=== PATIENT | male | born 1965 | race Caucasian/White ===

== ENCOUNTER 2018-09-28 17:27 | Emergency (ER) | payer OTHER ==
[2018-09-28 17:39] VITALS: TEMP 97.7
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
[2018-09-28] MEDS ORDERED: ONDANSETRON 4 MG/2 ML VIAL IVP STA (18:10)
[2018-09-28] MEDS ORDERED: SODIUM CHLORIDE 0.9% 1,000 ML IV STA (18:10)
[2018-09-28] MEDS ORDERED: LORazepam 2 MG/ML INJ IV STA (18:10)
[2018-09-28 18:22] LABS: Basophils # (A) 0.1 k/uL (0-0.2); Basophils % (A) 1 %; Eosinophils # (A) 0.2 k/uL (0-0.7); Eosinophils % (A) 2 %; HCT 49.3 % (39.0-53.0); Lymphocytes # (A) 3.8 k/uL (1.0-4.8); Lymphocytes % (A) 40 %; MCH 32.6 pg (25.0-35.0); MCHC 34.5 g/dL (31.0-37.0); MCV 94.4 fL (80.0-100.0); Mean Platelet Volume 7.8; Monocytes # (A) 0.5 k/uL (0-1.0); Monocytes % (A) 5 %; Neutrophils # (A) 4.8 k/uL (1.3-7.7); Neutrophils % (A) 50 %; Platelet Count 169 k/uL (150-450); RBC 5.23 m/uL (4.30-5.90); RDW 15.7 % (11.5-15.5); WBC 9.6 k/uL (3.8-10.6)
[2018-09-28 18:30] LABS: INR 0.9 (<1.2); Partial Thromboplastin Time 26.4 sec (22.0-30.0); Prothrombin Time 9.8 sec (9.0-12.0)
[2018-09-28 18:31] LABS: ALT 79 U/L (21-72); AST 116 U/L (17-59); African American GFR (CKD) >90 (>60 ml/min/1.73 sqM); Albumin 4.5 g/dL (3.5-5.0); Alkaline Phosphatase 109 U/L (38-126); Anion Gap 11 mmol/L; Blood Urea Nitrogen 7 mg/dL (9-20); Calcium 9.8 mg/dL (8.4-10.2); Carbon Dioxide 18 mmol/L (22-30); Chloride 107 mmol/L (98-107); Glucose 94 mg/dL (74-99); Magnesium 2.2 mg/dL (1.6-2.3); Phosphorus 2.2 mg/dL (2.5-4.5); Sodium 136 mmol/L (137-145); Total Bilirubin 1.3 mg/dL (0.2-1.3); Total Protein 7.4 g/dL (6.3-8.2)
[2018-09-28 19:14] VITALS: BP 172/104; PULSE 75; RESP 16
--- NOTE | 2018-09-28 19:18 | CT ---
EXAMINATION TYPE: CT brain wo con DATE OF EXAM: 09/28/2018 COMPARISON: None HISTORY: Weakness, SOB CT DLP: 1125.4 mGycm Automated exposure control for dose reduction was used. FINDINGS: There is some mild cerebral cortical atrophy. There is no mass effect nor midline shift. There is no sign of intracranial hemorrhage. Calvarium is intact. IMPRESSION: MILD ATROPHY. NO ACUTE INTRACRANIAL ABNORMALITY.
--- NOTE | 2018-09-28 19:21 | CT ---
EXAMINATION TYPE: CT angio chest DATE OF EXAM: 09/28/2018 6:56 PM COMPARISON: None HISTORY: Weakness, SOB CT DLP: 536.9 mGycm Automated exposure control for dose reduction was used. CONTRAST: CTA scan of the thorax is performed with IV Contrast, patient injected with 100 mL of Isovue 370, pul monary embolism protocol. . There are 3-D post processed images. FINDINGS: There is mild emphysema at the right lung apex. There is no significant mediastinal adenopathy. There are paratracheal lymph nodes that measure up to 1 cm. There is coronary artery calcification. Heart size is normal. There is no pericardial effusion. There is no pleural effusion. There is minimal atel ectasis posterior lung bases. There is no evidence of thoracic aortic aneurysm or dissection. There is normal contrast opacificatio n of the pulmonary arteries. There are no filling defects. There is some spurring in the thoracic spi ne. I see no bony destructive process. IMPRESSION: NO EVIDENCE OF PULMONARY EMBOLISM.
== END 2018-09-28 20:12 | disposition home or self-care (01) ==
LOC: EC 17:27
DX: R20.2 Paresthesia of skin (principal); R20.0 Anesthesia of skin; K21.9 Gastro-esophageal reflux disease without esophagitis; M19.90 Unspecified osteoarthritis, unspecified site; F17.200 Nicotine dependence, unspecified, uncomplicated; Z79.899 Other long term (current) drug therapy
CPT/HCPCS: 36415; 93005; 80053; 83735; 84100; 84484; 85025; 85610; 85730; 70450; 71275; 99285; 96374; 96375; 96361; J2060; J2405; Q9967

== ENCOUNTER → 2018-10-29 | Outpatient (CLI) | payer OTHER ==
--- NOTE | 2018-10-30 08:36 | US ---
EXAMINATION TYPE: US carotid duplex BILAT DATE OF EXAM: 10/29/2018 COMPARISON: NONE CLINICAL HISTORY: G45.9 TIA. Patient stated had left facial numbness and left foot numbness; dizzines s with positional changes, smoker 1ppd x 20 years EXAM MEASUREMENTS: RIGHT: Peak Systolic Velocity (PSV) cm/sec ----- Right CCA: 80.3 ----- Right ICA: 95.3 ----- Right ECA: 82.4 ICA/CCA ratio: 1.2 RIGHT: End Diastole cm/sec ----- Right CCA: 21.0 ----- Right ICA: 38.3 ----- Right ECA: 18.9 LEFT: Peak Systolic Velocity (PSV) cm/sec ----- Left CCA: 74.6 ----- Left ICA: 141.6 mid at severe turn in ICA, and stays elevated into distal left ICA at continue d tortuosity ----- Left ECA: 89.2 ICA/CCA ratio: 1.9 LEFT: End Diastole cm/sec ----- Left CCA: 21.5 ----- Left ICA: 43.0 ----- Left ECA: 14.7 VERTEBRALS (direction of flow): Right Vertebral: Antegrade Left Vertebral: Antegrade Rhythm: Normal Mild intimal wall thickening is noted in bilateral ICA with elevated PSV in tortuous mid and distal l eft ICA. IMPRESSION: 1. Although technique is suboptimal given the tortuosity of the left internal carotid artery a stenos is of 50-69% is seen as there is grayscale atheromatous plaquing and continued more distal ICA elevat ed velocity with nearly abnormal internal carotid artery to common carotid artery ratio. CTA neck cou ld further assess this finding. 2. No hemodynamically significant stenosis within the right visualized carotid arterial system. Criteria for Assigning % of Stenosis / Diameter reduction (Estimation based on the indirect measurements of the internal carotid artery velocities (ICA PSV). 1. Normal (no stenosis)=ICA PSV < 125 cm/s: ratio < 2.0: ICA EDV<40 cm/s. 2. Less than 50% stenosis=ICA PSV < 125 cm/s: ratio < 2.0: ICA EDV<40 cm/s. 3. 50 to 69% stenosis=ICA PSV of 125 to 230 cm/s: ration 2.0 ? 4.0: ICA EDV 40-100 cm/s. 4. Greater than 70% stenosis to near occlusion= ICA PSV > 230 cm/s: ratio > 4.0: ICA EDV > 100 cm/s. 5. Near occlusion= ICA PSV velocities may be low or undetectable: variable ratio and ICA EDV. 6. Total occlusion=unable to detect flow.
== END | disposition home or self-care (01) ==
LOC: RADUSWWP 16:54
PROVIDERS: ATTEND Family Medicine
DX: I65.22 Occlusion and stenosis of left carotid artery (principal)
CPT/HCPCS: 93880

== ENCOUNTER → 2019-05-21 | Outpatient (CLI) | payer OTHER ==
--- NOTE | 2019-05-21 17:12 | CT ---
EXAMINATION TYPE: CT angio neck DATE OF EXAM: 05/21/2019 HISTORY: c/o dizziness, dizziness and giddiness. COMPARISON: 02/04/2013 CT DLP: 321.5 mGycm. Automated Exposure Control for Dose Reduction was Utilized. TECHNIQUE: CTA scan of the neck is performed with IV Contrast, patient injected with 100 mL of Isovu e 370, axial images are obtained, coronal and sagittal reformatted images are reviewed. Three-D recon structed images are created on an independent workstation and reviewed. Source images are reviewed. FINDINGS: Carotid/Vascular Structures: There is a three-vessel arch. Vertebral arteries are codominant. Common carotid arteries bifurcate into internal and external carotid arteries. Internal carotid arter ies have mild tortuosity. No significant flow-limiting stenosis is evident. Internal carotid arteries are patent to the level of the skull base. Other: Parotid glands and submandibular glands appear normal. No suspicious adenopathy is evident. Th yroid as visualized is normal. IMPRESSION: 1. No flow-limiting stenosis bilateral carotid bifurcations.
== END | disposition home or self-care (01) ==
LOC: RADCTMAIN 14:51
PROVIDERS: ATTEND Family Medicine
DX: R42 Dizziness and giddiness (principal)
CPT/HCPCS: 70498; Q9967

== ENCOUNTER → 2020-04-23 | Outpatient (CLI) | payer OTHER ==
--- NOTE | 2020-04-23 16:03 | CT ---
EXAMINATION TYPE: CT lumbar spine wo con DATE OF EXAM: 04/23/2020 3:32 PM COMPARISON: Outside Lumbar spine x-ray 15 days ago HISTORY: low back pain CT DLP: 908.20 mGycm Automated exposure control for dose reduction was used. Unenhanced CT of the lumbar spine was performed. Bone and soft tissue window settings are submitted as well as coronal and sagittal reconstructions. There are 5 lumbar-type vertebra redemonstrated. Alignment is satisfactory. Mild to moderate disc spa ce narrowing greatest posteriorly L5-S1 level. Vertebral body heights and disc space heights otherwis e maintained. No large posterior disc herniation transvaginal images. Mild to moderate multilevel ant erior lateral spurring. Axial images at T12-L1, L1-L2, L2-L3, and L3-L4 levels appear within normal limits. Axial images at the L4-L5 level show mild facet degenerative changes bilaterally. There is mild broad disc bulge. There is mild effacement of the anterior thecal sac. There is mild to moderate left side d neural foraminal narrowing. Right sided neural foramen is patent. Axial images at L5-S1 level show mild facet degenerative changes bilaterally. There is broad-based po sterior disc protrusion. Spinal canal is preserved. There is moderate bilateral anterior inferior thais ral foraminal narrowing. Some encroachment on the right L5 nerve difficult to exclude sagittal image 23 on axial image 63. Few scattered diverticula in the sigmoid colon. Mild to moderate calcified plaque of the aorta extend s into branch vessels. Left hip metallic prosthesis noted on localizer. IMPRESSION: [id number] degenerative changes in the lower lumbar spine as detailed above.
== END | disposition home or self-care (01) ==
LOC: RADCTMAIN 15:05
PROVIDERS: ATTEND Orthopaedic Surgery
DX: M48.061 Spinal stenosis, lumbar region without neurogenic claudication (principal); M47.816 Spondylosis without myelopathy or radiculopathy, lumbar region
CPT/HCPCS: 72131

== ENCOUNTER → 2022-02-17 | Outpatient (CLI) | payer OTHER ==
--- NOTE | 2022-02-18 03:49 | MR ---
EXAMINATION TYPE: MR lumbar spine wo con DATE OF EXAM: 02/17/2022 COMPARISON: None HISTORY: Low back pain that radiates down left leg. Multiplanar multiecho imaging of the lumbar spine with no contrast. The vertebrae are of normal alignment. There is slight narrowing of the L5-S1 disc space. There is sm all posterior disc bulging and herniation at L5-S1. There is developmentally adequate spinal canal. N o spinal stenosis. No compression fracture. No lumbar paraspinal mass. The lumbar nerve roots appear normal. Sacroiliac joints are intact. The neural foramina are fairly well-maintained. No evidence of focal bone destruction. IMPRESSION: Mild degenerative disc changes at L5-S1 with posterior disc bulging. No spinal stenosis. No fracture.
== END | disposition home or self-care (01) ==
LOC: RADMRIMAIN 19:39
PROVIDERS: ATTEND Nurse Practitioner Family
DX: M51.17 Intervertebral disc disorders with radiculopathy, lumbosacral region (principal)
CPT/HCPCS: 72148

== ENCOUNTER → 2022-03-30 | Outpatient (CLI) | payer OTHER ==
--- NOTE | 2022-03-30 15:31 | P.PAINPG ---
PQRS Measure Charge Sheet Comment: HISTORY OF PRESENT ILLNESS: 56 yr old male as a referral from Dr Steve presents today w severe and chronic LBP secondary to disc bulges, DDD, spondylosis, facet arthropathy without myelopathy for evaluation. Pt states pain level is at 8 /10 in intensity, constant, localized in the lower lumbar spine, burning/ sore in character w shooting pain towards the BLEs and feet. Pain is provoked by standing/ walking for periods of 20 min or more. Pain is alleviated by medications (Eden, Neurontin, Naproxen), repositioning and rest. Pt hasn't stated PT yet. PMH: Past Medical History: HTN, Gout, Diverticulitis, MDD PSH: L Total Hip Arthroplasty SH: Daily tobacco use, No ETOH abuse, No illicit drug use. FH: Non contributory All: NKDA Meds: See list REVIEW OF ORGAN SYSTEMS: CONSTITUTIONAL: No fevers or chills. No recent weight loss. NEUROLOGICAL: + numbness and tingling along the distal extremities. No seizure disorders or headaches. MUSCULOSKELETAL: + pain PSYCHIATRIC: Denies current depression or suicidal th oughts. Physical Examinations : Constitutional : Cooperative , not in acute distress . Neurologic : Cranial nerve II to XII intact. No focal neurological deficits. Psychiatric : alert & oriented x 3. Matching mood & appropriate affect. Judgment & insight intact. Musculoskeletal : Cervical Spine Motor strength in the deltoid and biceps: Normal right side. Normal Left side Motor strength biceps and the wrist extensors: Normal right side . Normal left side Motor strength in the triceps muscle: Normal right side. Normal left side Deep tendon reflexes: Normal at the biceps. Normal at Brachioradialis. Normal at triceps Vertebral body tenderness to deep palpation over Cervical facet loading test: positive bilaterally Spurling test: positive bilaterally Neck distraction test: positive bilaterally Jennifer sign: positive bilaterally Lumbar spine Motor strength lower extremities ,thigh and legs 5/5 Right side , 5/5 Left side Deep tendon reflexes : Normal Knee Jerk. Normal Ankle Jerk Vertebral body tenderness over L5 Lumbar facet Loading Test: positive Right / positive Left Range of motion of the lumbar spine Flexion 30 degrees, extension 10 degrees Straight Leg Raise test: Left/ Right positive at degree Preston test: positive right / positive left. Severe tenderness over the Sacroiliac joint on the Right / Left sides Gaenslen test: positive bilaterally Seated flexion test: positive bilaterally. Sacral spine : Severe tenderness over the Sacroiliac joint: right side / left side Range of motion: Flexion of the lumbar spine <60 degrees Range of motion: Extension of the lumbar spine <20 degrees Gaenslen's Test positive Shon's Test positive Preston test: positive right side / left side Thigh Thrust Test Sacral Thrust Test Imaging: MRI without contrast of the lumbar spine from 02/17/22 reviewed Assessment/ Plan : Lumbar DDD Recommendation of CHRISTIANO L5-S1. May need a series of injections, up to 3 within a 6 mo period, for optimal pain relief. Risks, benefits of procedure discussed and patient verbalized understanding. Denies aspirin or anti- coagulant use or medical history of diabetes. Protocol for discontinuation/ continuation of medications dea procedure discussed. All questions answered. I have spent greater than 30 minutes on patient care today. Dr Washington was available by phone for the evaluation of this patient. The time was used to review the medical records including relevant urine studies and Prescription history (MAPs), review of the available imaging, evaluation and examination of the patient, coordination of care with the medical staff and if applicable referring physicians, as well as creation of the medical record PQRS Narrative: Smoking Status Current every day smoker Home Medications: Ambulatory Orders raNITIdine HCL [Zantac] 150 mg PO HS 10/05/14 HYDROcodone/APAP 7.5-325MG [Eden 7.5] 1 tab PO TID 09/28/18 lisinopriL [Prinivil] 10 mg PO DAILY #30 tab 09/28/18 Controlled Substance Measures - Controlled Substance Measures Is patient prescribed a controlled substance at discharge?: No
[2022-03-30 16:04] VITALS: BP 154/91; PULSE 76; RESP 18; TEMP 98.2
== END ==
LOC: PNWHC3 13:38
PROVIDERS: ATTEND Specialist
DX: M51.36 Other intervertebral disc degeneration, lumbar region (principal); F17.200 Nicotine dependence, unspecified, uncomplicated; I10 Essential (primary) hypertension
CPT/HCPCS: 99211

== ENCOUNTER 2022-08-11 18:44 | Inpatient (IN) | payer OTHER ==
[2022-08-11] MEDS ORDERED: HEPARIN SODIUM 1,000 UN/ML (10ML VL) IV ONE (18:57)
[2022-08-11] MEDS ORDERED: SODIUM CHLORIDE 0.9% 1,000 ML IV STA ×2 (18:57→19:14)
[2022-08-11] MEDS ORDERED: SODIUM CHLORIDE 0.9% 500 ML 500 ML IV STA (18:57)
[2022-08-11] MEDS ORDERED: NITROGLYCERIN SL TABS 0.4 MG TAB SUBLINGUAL STA (18:57)
[2022-08-11] MEDS ORDERED: ASPIRIN 81 MG PO STA (18:57)
[2022-08-11 19:01] LABS: Glucose,Whole Blood 115 mg/dL (70-110)
[2022-08-11] MEDS ORDERED: SODIUM CHLORIDE 0.9% 1,000 ML IV ONE (19:07)
--- NOTE | 2022-08-11 19:10 | ED ---
Chest Pain HPI - General Chief Complaint: Chest Pain Stated Complaint: chest pain Time Seen by Provider: 08/11/22 18:55 Source: patient, RN notes reviewed Mode of arrival: wheelchair Limitations: no limitations - History of Present Illness Initial Comments: 57-year-old male with a history of hypertension no history of diabetes no prior history of heart disease on his mother had heart disease started having retrosternal chest pain 7-8/10 in severity about 15-20 miles prior to arrival. He was pale and diaphoretic upon arrival at the emergency department triage area. 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 This is at the time the pain started. Slight shortness of breath with it. His states he is hypertensive by history he takes a medication starting with a L but is not taking it on a regular basis. He also is a smoker no other MD Complaint: chest pain - Related Data Home Medications Medication Instructions Recorded Confirmed raNITIdine HCL [Zantac] 150 mg PO HS 10/05/14 05/31/22 HYDROcodone/APAP 7.5-325MG [Ray 1 tab PO TID 09/28/18 05/31/22 7.5] Gabapentin 300 mg PO DAILY 05/31/22 05/31/22 lisinopriL [Prinivil] 40 mg PO DAILY 05/31/22 05/31/22 Allergies Allergy/AdvReac Type Severity Reaction Status Date / Time No Known Allergies Allergy Verified 08/11/22 18:48 Review of Systems ROS Statement: Those systems with pertinent positive or pertinent negative responses have been documented in the HPI. ROS Other: All systems not noted in ROS Statement are negative. EKG Findings - EKG Results: EKG: interpreted by ERMD (EKG interpreted by sc sinus tachycardia of 100 [place] interval 202 QRS duration 169 QT since QTC 381/438 evidence a right bundle- branch block also anteroseptal [place] with ST elevations is noted this is changed from a normal EKG dated 09/28/2018) Past Medical History Past Medical History: GERD/Reflux, Hyperlipidemia, Hypertension, Osteoarthritis (OA), Skin Disorder Additional Past Medical History / Comment(s): 04/27/15 Pt admitted to floor s/p total L hip. Other HX: keratitis, diverticulitis, gout, dizziness for years had EEG last sunday. has had falls in the past. varicose veins. dark urine lately. numbness to feet. History of Any Multi-Drug Resistant Organisms: None Reported Past Surgical History: Joint Replacement, Orthopedic Surgery Additional Past Surgical History / Comment(s): 04/27/15 Total L hip anterior approach. Other sx: RIGHT HAND/FINGERS. TUBES IN EARS Past Anesthesia/Blood Transfusion Reactions: No Reported Reaction Additional Past Anesthesia/Blood Transfusion Reaction / Comment(s): UNK FAMILY HX Past Psychological History: Anxiety, Depression Smoking Status: Current every day smoker Past Alcohol Use History: None Reported Past Drug Use History: None Reported - Past Family History Mother Family Medical History: Coronary Artery Disease (CAD) Additional Family Medical History / Comment(s): HEART PROBLEMS , bypass surgery Father Family Medical History: Cancer Additional Family Medical History / Comment(s): LUNG CANCER Brother(s) Additional Family Medical History / Comment(s): WITH COMPLICATIONS OF BED SORES R/T POST MVA General Exam - General Exam Comments Initial Comments: This is a well-developed well-nourished awake alert oriented 4 male he does appear to be in distress Limitations: no limitations General appearance: alert, anxious, in distress Head exam: Present: atraumatic, normocephalic, normal inspection Eye exam: Present: normal appearance, PERRL, EOMI. Absent: scleral icterus, conjunctival injection, periorbital swelling ENT exam: Present: normal exam, mucous membranes moist Neck exam: Present: normal inspection, full ROM, other (No stridor JVD or bruits). Absent: tenderness, meningismus, lymphadenopathy Respiratory exam: Present: normal lung sounds bilaterally. Absent: respiratory distress, wheezes, rales, rhonchi, stridor Cardiovascular Exam: Present: normal rhythm, tachycardia, normal heart sounds. Absent: systolic murmur, diastolic murmur, rubs, gallop, clicks GI/Abdominal exam: Present: soft, normal bowel sounds. Absent: distended, tenderness, guarding, rebound, rigid, bruit, pulsatile mass Extremities exam: Present: normal inspection, full ROM, normal capillary refill. Absent: tenderness, pedal edema, joint swelling, calf tenderness Back exam: Present: normal inspection Neurological exam: Present: alert, oriented X3, CN II-XII intact Psychiatric exam: Present: normal affect, normal mood Skin exam: Present: warm, dry, intact, normal color. Absent: rash Course Vital Signs 08/11/22 08/11/22 08/11/22 18:44 19:00 19:05 Temperature 98.3 F Pulse Rate 103 H 98 96 Respiratory 24 18 22 Rate Blood Pressure 82/55 96/67 95/70 O2 Sat by Pulse 100 95 97 Oximetry 08/11/22 08/11/22 08/11/22 19:10 19:12 19:15 Temperature Pulse Rate 95 95 93 Respiratory 18 22 18 Rate Blood Pressure 83/61 77/60 80/64 O2 Sat by Pulse 100 97 98 Oximetry - Reevaluation(s) Reevaluation #1: 08/11/22 19:11 The patient was noted be hypotensive and is getting IV fluids at this time he received IV heparin and aspirin nitro was being held at this time due to the blood pressure until fluids are administered. A STEMI alert was called I did talk to Dr. Kong. The industrial laborer team is called in. Reevaluation #2: 08/11/22 20:05 The patient was not on any erectile dysfunction drugs Chest Pain MDM - MDM I did interpret the x-ray no acute processes are seen. I did discuss case with Dr. Kong from cardiology patient will be sent to the [facility] for cardiac catheterization. Did discuss this with the patient's . Patient did have evidence of hypotensive episodes he was given IV fluids as well as IV heparin and aspirin a small dose of fentanyl for pain. He is awake alert oriented. He did go to Bed #3. I did discuss case also with Dr. Wallace.Was pt. sent in by a medical professional or institution (, PA, NEWSPAPER CARRIER, urgent care, hospital, or snf...) When possible be specific @ -No Did you speak to anyone other than the patient for history (EMS, parent, family, police, friend...)? What history was obtained from this source @ -Patient's Did you review nursing and triage notes (agree or disagree)? Why? @ -I reviewed and agree with nursing and triage notes Were old charts reviewed (outside hosp., previous admission, EMS record, old EKG, old radiological studies, urgent care reports/EKG's, snf records)? Report findings @ -EKG from 2019 old charts were reviewed Differential Diagnosis (chest pain, altered mental status, abdominal pain women, abdominal pain men, vaginal bleeding, weakness, fever, dyspnea, syncope, headache, dizziness, GI bleed, back pain, seizure, CVA, palpatations, mental health, musculoskeletal)? @ -Chest pain EKG interpreted by me (3pts min.). @ -As above X-rays interpreted by me (1pt min.). @ -As above CT interpreted by me (1pt min.). @ -None done U/S interpreted by me (1pt. min.). @ -None done What testing was considered but not performed or refused? (CT, X-rays, U/S, labs)? Why? @ -None What meds were considered but not given or refused? Why? @ -None Did you discuss the management of the patient with other professionals (professionals i.e. , PA, NEWSPAPER CARRIER, lab, RT, psych nurse, foster care social worker, buffing turner and counter, teacher, chief security officer, rehabilitation caseworker)? Give summary @ -Dr. Kong and later Dr. Wallace Was smoking cessation discussed for >3mins.? @ -No Was critical care preformed (if so, how long)? @ -31 Were there social determinants of health that impacted care today? How? (Homelessness, low income, unemployed, alcoholism, drug addiction, transportation, low edu. Level, literacy, decrease access to med. care, [facility], rehab)? @ -No Was there de-escalation of care discussed even if they declined (Discuss DNR or withdrawal of care, Hospice)? DNR status @ -No What co-morbidities impacted this encounter? (DM, HTN, Smoking, COPD, CAD, Cancer, CVA, ARF, Chemo, Hep., AIDS, mental health diagnosis, sleep apnea, morbid obesity)? @ -Eye protection, smoking Was patient admitted / discharged? Hospital course, mention meds given and route, prescriptions, significant lab abnormalities, going to OR and other pertinent info. @ -The patient was admitted to the [facility] Undiagnosed new problem with uncertain prognosis? @ -ST elevation myocardial infarction Drug Therapy requiring intensive monitoring for toxicity (Heparin, Nitro, Insulin, Cardizem)? @ -[No] Were any procedures done? @ -[No] Diagnosis/symptom? @ -[Acute ST elevation myocardial infarction, hypotensive episode, chest pain] Acute, or Chronic, or Acute on Chronic? @ -[Acute] Uncomplicated (without systemic symptoms) or Complicated (systemic symptoms)? @ -[Complicated] Side effects of treatment? @ -[No] Exacerbation, Progression, or Severe Exacerbation? @ -[No] Poses a threat to life or bodily function? How? (Chest pain, [place], [place], pneumonia, PE, COPD, DKA, ARF, appy, cholecystitis, CVA, Diverticulitis, Homicidal, Suicidal, threat to staff... and all critical care pts) @ -[ST elevation myocardial infarction] Critical Care Time Critical Care Time: Yes Total Critical Care Time: 31 Disposition Clinical Impression: ST elevation myocardial infarction (STEMI), Chest pain, Hypotensive episode, Smoking Disposition: ADMITTED IP TO THIS HOSP Condition: Critical Decision Date: 08/11/22 Decision Time: 19:40
[2022-08-11 19:15] LABS: Basophils # (A) 0.1 k/uL (0-0.2); Basophils % (A) 1 %; Eosinophils # (A) 0.2 k/uL (0-0.7); Eosinophils % (A) 1 %; HCT 48.3 % (39.0-53.0); HGB 16.6 gm/dL (13.0-17.5); Lymphocytes # (A) 4.7 k/uL (1.0-4.8); Lymphocytes % (A) 28 %; MCH 31.7 pg (25.0-35.0); MCHC 34.4 g/dL (31.0-37.0); MCV 92.1 fL (80.0-100.0); Mean Platelet Volume 9.2; Monocytes # (A) 0.8 k/uL (0-1.0); Monocytes % (A) 5 %; Neutrophils # (A) 10.8 k/uL (1.3-7.7); Neutrophils % (A) 64 %; Platelet Count 244 k/uL (150-450); RBC 5.24 m/uL (4.30-5.90); RDW 12.8 % (11.5-15.5); WBC 16.8 k/uL (3.8-10.6)
[2022-08-11] MEDS ORDERED: fentaNYL (PF) 50 MCG/ML 2 ML AMP IV STA (19:16)
[2022-08-11] MEDS ORDERED: fentaNYL (PF) 50 MCG/ML 2 ML AMP IVP ONE (19:16)
[2022-08-11] MEDS ORDERED: VERAPAMIL 2.5 MG/ML 2 ML AMP ONE (19:22)
[2022-08-11] MEDS ORDERED: fentaNYL (PF) 50 MCG/ML 2 ML AMP ONE (19:22)
[2022-08-11] MEDS ORDERED: NALOXONE 0.4 MG/ML 1 ML VIAL IV PRN (19:28)
[2022-08-11 19:29] LABS: INR 0.9 (<1.2); Partial Thromboplastin Time 24.9 sec (22.0-30.0); Prothrombin Time 9.9 sec (9.0-12.0)
[2022-08-11] MEDS ORDERED: LIDOCAINE 1% INJ 10MG/ML (20 ML MDV) ONE (19:30)
[2022-08-11 19:32] LABS: Albumin 4.3 g/dL (3.5-5.0); Calcium 9.6 mg/dL (8.4-10.2); Total Protein 7.1 g/dL (6.3-8.2)
[2022-08-11 19:33] LABS: Magnesium 1.9 mg/dL (1.6-2.3)
[2022-08-11] MEDS ORDERED: LIDOCAINE 1% INJ 10MG/ML (5 ML VIAL-PF) SQ ONE (19:33)
[2022-08-11] MEDS ORDERED: PHENYLEPHRINE-0.9% NACL SYG 1,000 MCG/10 ML SYRINGE IV ONE (19:35)
[2022-08-11] MEDS ORDERED: PRASUGREL 10 MG TAB ONE (19:40)
[2022-08-11] MEDS ORDERED: HEPARIN SODIUM 1,000 UN/ML (10ML VL) ONE (19:40)
[2022-08-11] MEDS ORDERED: HEPARIN SODIUM,PORCINE 5,000 UNIT/ML 1 ML VIAL IV ONE (19:41)
[2022-08-11] MEDS ORDERED: PRASUGREL 10 MG TAB PO ONE (19:41)
[2022-08-11] MEDS ORDERED: NOREPINEPHRINE 4 MG in SODIUM CHLORIDE 0.9% 250 ML IV ONE (19:42)
[2022-08-11] MEDS ORDERED: EPINEPHrine 10 ML SYRINGE (0.1 MG/ML) IV ONE ×3 (19:52→20:34)
[2022-08-11] MEDS ORDERED: LIDOCAINE 2% SYG (PF) 100 MG/5 ML IV ONE (19:55)
--- NOTE | 2022-08-11 19:55 | XR ---
EXAMINATION TYPE: XR chest 1V DATE OF EXAM: 08/11/2022 7:07 PM COMPARISON: CT 09/28/2018 TECHNIQUE: XR chest 1V Frontal view of the chest. CLINICAL INDICATION:Male, 57 years old with history of Chest Pain; FINDINGS: Lungs/Pleura: Asymmetric right upper lung haziness to the lungs . Findings could be secondary to summ ation artifact. There is no evidence of pleural effusion, focal consolidation, or pneumothorax. Pulmonary vascularity: Unremarkable. Heart/mediastinum: Cardiomediastinal silhouette is unremarkable. Musculoskeletal: No acute osseous pathology. IMPRESSION: Right upper lung asymmetric haziness compared to left. Could be secondary summation of overlapping so ft tissues.
[2022-08-11] MEDS ORDERED: AMIODARONE 50 MG/ML 3 ML VIAL IV ONE ×2 (19:57→20:16)
[2022-08-11] MEDS ORDERED: METOPROLOL TARTRATE 5 MG/5 ML VIAL IVP ONE ×2 (20:12→20:15)
[2022-08-11] MEDS ORDERED: SODIUM BICARB 8.4% 50 ML VIAL (1 MEQ/ML) IV ONE (20:22)
--- NOTE | 2022-08-11 20:32 | P.PN ---
Progress Note - Text Progress Note Date: 08/11/22 Responded to code Blue in the Poultry [employer]per#3 , patient on the procedure table he had multiple shocks done by cardiology team, unresponsive, patient on 100% oxygen through Ampu bag , intubated mac #3 blade ,one attempt, oral ET tube size 8 , secured at 22 cm , positive color change( co2 indicator ) further management as per cardiology team and ICU team.
[2022-08-11] MEDS: AMIODARONE 360 MG in DEXTROSE 5% IN WATER 200 ML IV ONE ×2 (20:45)
[2022-08-11] MEDS ORDERED: RX INFO: IV CONTRAST WAS GIVEN 1 EACH MISC MISCELLANE PRN (21:07)
[2022-08-11] MEDS ORDERED: NITROGLYCERIN SL TABS 0.4 MG TAB SUBLINGUAL PRN (21:07)
[2022-08-11] MEDS ORDERED: ZOLPIDEM 5 MG TAB PO PRN (21:07)
[2022-08-11] MEDS ORDERED: MAG HYDROX/AL HYDROX/SIMETH 30 ML CUP PO PRN (21:07)
[2022-08-11] MEDS ORDERED: ATROPINE SULFATE 0.1 MG/ML 10ML SYRINGE IV PRN (21:07)
[2022-08-11] MEDS ORDERED: HEPARIN SODIUM 1,000 UN/ML (10ML VL) IV PRN (21:10)
[2022-08-11] MEDS ORDERED: SODIUM BICARB (1 MEQ/ML) 12.5 ML in DEXTROSE 5% IN WATER 500 ML IV SCH ×2 (21:15)
[2022-08-11] MEDS ORDERED: HEPARIN SOD,PORK IN 0.45% NACL 25,000 UNIT in 0.45% NACL 1 250ML.BAG IV SCH (21:15)
[2022-08-11 21:22] LABS: Glucose,Whole Blood 359 mg/dL (70-110)
--- NOTE | 2022-08-11 21:22 | P.CARDCATH ---
Date of Procedure: 08/11/22 Description of Procedure: PERCUTANEOUS TRANSLUMINAL CORONARY ANGIOPLASTY CLINICAL INFORMATION: The patient is a 57-year-old male who presented with an acute interval myocardial infarction, underwent cardiac catheterization by Dr. Kong and was found to have subtotally occluded proximal LAD. The patient was hypotensive on presentation. Recommendations were made regarding angioplasty and stenting. The procedure as well as the risks and the complications were discussed with the patient who was in full understanding and agreement. PROCEDURE: A 6 Congolese EBU 3.75 guiding catheter was introduced into the system. After cannulating the left main, a 0.014 BMW J-wire was advanced across the lesion and positioned distally. Following that a 2.5 x 12 mm Treck balloon was advanced and inflated at 8 atmosphere. Following that a 4.0 x 23 mm Xience yael point stent was deployed. It was dilated at 16. Following that the patient had recurrent episode of ventricular tachycardia and ventricular fibrillation requiring CPR and multiple cardioversion. The patient was intubated electively by anesthesia. After removing the balloon 3.25 x 23 mm Xience yael point was deployed distal to the first one and postdilated to 16 shira. After the last inflation, after appropriate wait, the balloon and the guidewire were withdrawn back into the guiding catheter. Images were obtained and repeated. Those images reveal stable successful stenting. At that point, the guiding catheter, the balloon, and guidewire were removed. A 6-Congolese right Phyllis catheter was introduced and images of the right coronary artery was performed. Subsequently a 6-Congolese pigtail catheter was introduced in the left ventricle and pressures were calculated. The patient continued to be hypotensive and at that time the 6-Congolese sheath in the right femoral artery was exchanged to a 14-Congolese sheath. The 6-Congolese pigtail catheter was reintroduced in the left ventricle and changed to the Impella wire. After removing the pigtail the Impella was introduced under fluoroscopy and positioned with good hemodynamics number. It was sutured in place. Subsequently a 4-Congolese sheath was introduced in the left femoral vein using modified Seldinger technique. It was sutured in place. Of note, the patient received 4000 units of heparin as well as Effient. His ACT was followed. At the end of the procedure he had no further ventricular tachycardia. Hemodynamically more stable. RESULTS: Successful stenting of the proximal LAD with reduction of stenosis from 99% with large amount of thrombus to less than 5% Successful placement of Impella catheter for hemodynamic support Chronically occluded mid RCA Elevated LVEDP Placement of a venous sheath in the right femoral vein RECOMMENDATIONS: The patient will be continued on aspirin and Effient for 1 year with no interruption. The prognosis is guarded. The findings and recommendations were discussed with the family, they are in full understanding and agreement. He was transferred to the ICU. Depending on his progress further recommendations will be made. Duration of sedation: 75 minutes
[2022-08-11] MEDS: NOREPINEPHRINE 4 MG in SODIUM CHLORIDE 0.9% 250 ML IV SCH (21:30)
[2022-08-11] MEDS ORDERED: CISATRACURIUM 2 MG/ML 5 ML VIAL IV ONE (21:32)
[2022-08-11 21:38] LABS: Allen Test Performed? no
[2022-08-11 21:39] LABS: ABG Base Excess -19.9 mmol/L; ABG HCO3 12 mmol/L (21-25); ABG PCO2 48 mmHg (35-45); ABG PH 6.99 (7.35-7.45); ABG PO2 85 mmHg (83-108); ABG TCO2 13 mmol/L (19-24)
[2022-08-11] MEDS ORDERED: IV FLUID CONTINUATION 1,000 ML IV ONE (21:44)
[2022-08-11] MEDS ORDERED: IOPAMIDOL-370 100ML BTL INJ ONE ×2 (21:45→21:46)
[2022-08-11 21:53] LABS: ABG Base Excess -12.1 mmol/L; ABG HCO3 17 mmol/L (21-25); ABG PCO2 52 mmHg (35-45); ABG PO2 157 mmHg (83-108); ABG TCO2 19 mmol/L (19-24); Allen Test Performed? Yes
[2022-08-11 21:55] LABS: ABG PH 7.13 (7.35-7.45)
[2022-08-11] MEDS ORDERED: SODIUM BICARB 8.4% 50 ML SYR (1 MEQ/ML) IV STA (22:26)
--- NOTE | 2022-08-11 22:27 | XR ---
EXAMINATION TYPE: XR chest 1V portable DATE OF EXAM: 08/11/2022 10:08 PM COMPARISON: Chest radiographs from 08/11/2022 TECHNIQUE: XR chest 1V portable Frontal view of the chest. CLINICAL INDICATION:Male, 57 years old with history of Tube placement; FINDINGS: Lungs/Pleura: There is no evidence of pleural effusion, focal consolidation, or pneumothorax. Pulmonary vascularity: Pulmonary vascular congestion. Heart/mediastinum: Cardiomediastinal silhouette is unremarkable. Musculoskeletal: No acute osseous pathology. Other findings: None Lines/Tubes: Endotracheal tube with distal tip 3.9 cm above the anjana. Left ventricular assist device in place in appropriate position. IMPRESSION: 1. Left stent is in appropriate position. 2. Endotracheal tube in appropriate position. 3. Pulmonary vascular congestion.
[2022-08-11 22:46] LABS: HCT 44.6 % (39.0-53.0); HGB 14.9 gm/dL (13.0-17.5); MCH 31.9 pg (25.0-35.0); MCHC 33.4 g/dL (31.0-37.0); MCV 95.6 fL (80.0-100.0); Mean Platelet Volume 8.9; Platelet Count 242 k/uL (150-450); RBC 4.66 m/uL (4.30-5.90); RDW 13.1 % (11.5-15.5); WBC 30.6 k/uL (3.8-10.6)
[2022-08-11] MEDS: SODIUM CHLORIDE 0.9% 1,000 ML in EMPTY BAG 1 BAG IV SCH (22:57)
[2022-08-11] MEDS: CHLORHEXIDINE GLUCONATE 15 ML CUP MUCOUS MEM SCH (23:18)
[2022-08-11] MEDS: DEXTROSE 5% IN WATER 1,000 ML with SODIUM BICARB (1 MEQ/ML) 150 ML IV SCH (23:19)
[2022-08-11 23:21] LABS: Partial Thromboplastin Time 103.9 sec (22.0-30.0); Prothrombin Time 10.9 sec (9.0-12.0)
[2022-08-11 23:28] LABS: Calcium 7.6 mg/dL (8.4-10.2)
[2022-08-11 23:43] LABS: Amorphous Sediment,Urine Occasional /hpf; Appearance,Urine Cloudy (Clear); Bacteria,Urine Rare /hpf; Bilirubin,Urine Negative (Negative); Blood,Urine Large (Negative); Color,Urine Dark Red; Glucose,Urine (UA) 3+ (Negative); Granular Casts,Urine 3 /lpf (0); Hyaline Casts,Urine 8 /lpf (0-2); Ketones,Urine 1+ (Negative); Leukocyte Esterase,Urine Small (Negative); Mucus,Urine Rare /hpf; Nitrite,Urine Negative (Negative); PH, Urine 5.5 (5.0-8.0); Protein,Urine 2+ (Negative); RBC,Urine 1 /hpf (0-5); Specific Gravity,Urine 1.036 (1.001-1.035); Squamous Epithelial Cell,Urine 1 /hpf (0-4); Urobilinogen,Urine <2.0 mg/dL (<2.0); WBC,Urine 1 /hpf (0-5)
[2022-08-11 23:45] LABS: Potassium 3.8 mmol/L (3.5-5.1)
[2022-08-11 23:55] LABS: Band Neutrophils % 11 %; Lymphocytes # (M) 2.75 k/uL (1.0-4.8); Metamyelocytes # (M) 0.31 k/uL (0); Metamyelocytes % 1 %; Monocytes # (M) 0.92 k/uL (0-1.0); Neutrophils % (M) 77 %; Nucleated Red Blood Cells 0 /100 WBC (0-0); Total Cells Counted 200
[2022-08-11 23:56] LABS: RBC Morphology Normal
[2022-08-12] MEDS ORDERED: Potassium Replacement Protocol 1 EACH MISC MISCELLANE PRN (00:24)
[2022-08-12] MEDS: POTASSIUM CHLORIDE 10 MEQ in WATER FOR INJECTION 1 100ML.BAG IVPB SCH ×2 (00:40→01:45)
[2022-08-12] MEDS ORDERED: MIDAZOLAM HCL 50 MG in SODIUM CHLORIDE 0.9% 40 ML IV SCH (01:15)
[2022-08-12] MEDS: NOREPINEPHRINE 4 MG in SODIUM CHLORIDE 0.9% 250 ML IV SCH ×3 (01:17→17:27)
--- NOTE | 2022-08-12 01:47 | CONS ---
CONSULTATION CHIEF COMPLAINT: Chest pain. HISTORY OF PRESENT ILLNESS: This is a 57-year-old gentleman with history of hypertension who presented to the hospital with sudden onset chest pain that started an hour prior to coming into hospital. It was 10/10 intensity chest pain with radiation to both arms. EKG showed acute anterior wall myocardial infarction and STEMI was activated and I received a phone call from the emergency room physician. I spoke to Dr. Shawn Orr in the ER and STEMI was already activated and I met the patient in the senior cytogenetics laboratory director. He is hypotensive and seemed to be in pain but not in respiratory distress. His blood pressures are in the 60s to 70s systolic. The patient seems to be in cardiogenic shock related to the anterior wall myocardial infarction. PAST MEDICAL HISTORY: Significant for hypertension. MEDICATIONS: Include lisinopril. FAMILY HISTORY: Negative for premature coronary artery disease. SOCIAL HISTORY: Significant for smoking. There is no history of EtOH abuse or drug abuse. REVIEW OF SYSTEMS: I am unable to obtain from the patient who is critically ill. PHYSICAL EXAMINATION: VITAL SIGNS: Heart rate is around 70 beats per minute. Blood pressure is 68/50, respiratory rate is 18. CHEST: Reveals diminished air entry at the bases. I do not hear any crackles or rhonchi. HEART: Reveals first and second heart sounds. No gallop. No murmur. ABDOMEN: Soft. EXTREMITIES: Exam of extremities did not reveal any edema. Peripheral pulses are felt. LABORATORY DATA: Labs are pending at this time. EKG shows acute anterior wall myocardial infarction. ASSESSMENT: 1. Acute anterior wall myocardial infarction. 2. Cardiogenic shock. PLAN: We will proceed with emergent cardiac catheterization. The patient has received fluid resuscitation, received IV heparin in the ER and we are going to start him on Levophed. MMODL / IJN: [id number] /
[2022-08-12] MEDS: SODIUM CHLORIDE 0.9% 1,000 ML IV SCH ×2 (01:49→17:29)
[2022-08-12 02:10] LABS: Partial Thromboplastin Time 47.4 sec (22.0-30.0)
--- NOTE | 2022-08-12 02:17 | OP ---
OPERATIVE REPORT DATE OF SERVICE : INDICATION: Acute anterior wall myocardial infarction. PROCEDURE: After obtaining informed consent, left heart catheterization and coronary angiogram were performed via the right femoral artery. The patient tolerated the procedure well. Total sedation time was 7 minutes. The right femoral artery access was obtained using Seldinger technique. Catheter and wire were floated into the ascending aorta under fluoroscopic guidance. I only obtained the left injection. Following which, the equipment service technician proceeded with angioplasty and he will obtain the right coronary artery injection and hemodynamics. The patient is hypotensive and is critically ill secondary to cardiogenic shock and we will resuscitate him with pressors, injection of the coronary angiogram. Left main coronary artery is a normal-sized vessel and is free of stenosis. It divides into left anterior descending coronary artery and circumflex coronary artery. Circumflex coronary artery and its branches are free of significant stenosis. There are collaterals to the distal right coronary artery. LAD appears totally occluded in the proximal to midportion with an area of filling defect and plaque rupture. PLAN: Dr. Taylor will proceed with angioplasty with stent placement of LAD and he will obtain right coronary angiogram and left ventricular hemodynamics. MMODL / IJN: [id number] /
[2022-08-12] MEDS: AMIODARONE 450 MG in DEXTROSE 5% IN WATER 250 ML IV SCH ×4 (03:09→17:28)
[2022-08-12] MEDS ORDERED: CISATRACURIUM 200 MG in SODIUM CHLORIDE 0.9% 180 ML IV SCH (03:45)
[2022-08-12 05:04] LABS: Basophils % (A) 0 %; Eosinophils % (A) 0 %; HCT 40.1 % (39.0-53.0); HGB 14.2 gm/dL (13.0-17.5); Lymphocytes # (A) 1.6 k/uL (1.0-4.8); Lymphocytes % (A) 8 %; MCHC 35.4 g/dL (31.0-37.0); MCV 93.2 fL (80.0-100.0); Mean Platelet Volume 8.8; Monocytes % (A) 5 %; Neutrophils # (A) 16.6 k/uL (1.3-7.7); Neutrophils % (A) 86 %; Platelet Count 212 k/uL (150-450); RDW 13.2 % (11.5-15.5); WBC 19.3 k/uL (3.8-10.6)
[2022-08-12 05:26] LABS: Potassium 5.6 mmol/L (3.5-5.1)
[2022-08-12 05:29] LABS: Partial Thromboplastin Time 39.5 sec (22.0-30.0)
--- NOTE | 2022-08-12 05:45 | XR ---
EXAMINATION TYPE: XR chest 1V portable DATE OF EXAM: 08/12/2022 CLINICAL HISTORY: Difficulty breathing progress study. LVAD placement. TECHNIQUE: Single AP portable supine view of the chest is obtained. COMPARISON: Chest x-ray from one day earlier and older studies FINDINGS: Stable endotracheal and orogastric tubes. Stable positioning of the left ventricular andrade t device. Persistent mild cardiomegaly and central vascular congestion. No pneumothorax is seen. Osseous struct ures are intact. IMPRESSION: Mild cardiomegaly and mild central vascular congestion redemonstrated. No significant amaris nge from one day earlier.
[2022-08-12 05:51] LABS: Glucose,Whole Blood 180 mg/dL (70-110)
[2022-08-12 05:52] LABS: ABG Base Excess -1.3 mmol/L; ABG HCO3 24 mmol/L (21-25); ABG Oxygen Saturation 99.6 % (94-97); ABG PCO2 45 mmHg (35-45); ABG PH 7.34 (7.35-7.45); ABG PO2 197 mmHg (83-108); ABG TCO2 26 mmol/L (19-24); Allen Test Performed? Yes
[2022-08-12] MEDS: PANTOPRAZOLE 40 MG/10 ML VIAL IV SCH (08:52)
[2022-08-12 09:04] LABS: HCT 39.5 % (39.0-53.0); HGB 13.8 gm/dL (13.0-17.5); MCH 32.5 pg (25.0-35.0); MCHC 34.8 g/dL (31.0-37.0); MCV 93.5 fL (80.0-100.0); Platelet Count 181 k/uL (150-450); RBC 4.23 m/uL (4.30-5.90); RDW 13.4 % (11.5-15.5); WBC 17.5 k/uL (3.8-10.6)
[2022-08-12] MEDS: CHLORHEXIDINE GLUCONATE 15 ML CUP MUCOUS MEM SCH ×2 (09:16→20:48)
[2022-08-12] MEDS: METOPROLOL TARTRATE 25 MG TAB PO SCH ×2 (09:16→20:48)
[2022-08-12 09:33] LABS: Partial Thromboplastin Time 46.3 sec (22.0-30.0)
[2022-08-12 09:45] LABS: Potassium 5.9 mmol/L (3.5-5.1)
[2022-08-12] MEDS ORDERED: SODIUM ZIRCONIUM CYCLOSILICATE 10 GM PACKET PO ONE ×2 (10:30→20:16)
--- NOTE | 2022-08-12 10:33 | P.PCN ---
Date of Procedure: 08/12/22 Description of Procedure: Impella catheter removal: The catheter was weaned down, the patient was stable hemodynamically. The catheter was removed, hemostasis was obtained with compression of the right groin. There was no immediate complication. The procedure was tolerated.
[2022-08-12] MEDS: PRASUGREL 10 MG TAB PO SCH (10:42)
[2022-08-12] MEDS: ASPIRIN 81 MG PO SCH (10:42)
--- NOTE | 2022-08-12 11:03 | CA ---
Transthoracic Echo Report Name: Nathaniel Rome Age: 57 Gender: M : 1965 Exam Date: 08/11/2022 23:00 Exam Location: [place] [facility] Ht (in): 68 Wt (lb): 180 Ordering Physician: Lisa Taylor MD ([id number]) Attending/Referring Phys: Literacy Specialist Slime Troy RDCS Procedure CPT: Indications: Placement of Left Ventricular Assist Device Cardiac Hx: limited study Technical Quality: Fair Contrast 1: Total Dose (mL): Contrast 2: Total Dose (mL): MEASUREMENTS (Male / Female) Normal Values 2D ECHO LV Diastolic Volume MOD 4C 72.9 cm??? LV Systolic Volume MOD 4C 63.9 cm??? LV Ejection Fraction MOD 4C 12.3 % LV Diastolic Length 4C 7.8 cm LV Systolic Length 4C 7.0 cm FINDINGS Left Ventricle Left ventricular ejection fraction is estimated at 12 %. Severely reduced global left ventricular systolic function. Catheter in LVOT Right Ventricle Mildly reduced right ventricular global systolic function. Right Atrium Left Atrium Mitral Valve Aortic Valve Tricuspid Valve Pulmonic Valve Pericardium Normal pericardium. No pericardial effusion. Aorta CONCLUSIONS Severe LV systolic dysfunction secondary to extensive myocardial infarction and LAD distribution with an ejection fraction of 15% And Impala catheter is placed in the left ventricular outflow tract catheter positions seems optimal Previewed by: Dr. Dayday Kong MD (Electronically Signed) Final Date: 12 Aug 2022 11:02
--- NOTE | 2022-08-12 11:07 | CA ---
Transthoracic Echo Report Name: Nathaniel Rome Age: 57 Gender: M : 1965 Exam Date: 08/12/2022 07:57 Exam Location: [place] [facility] Ht (in): 68 Wt (lb): 198 Ordering Physician: Lisa Taylor MD Attending/Referring Phys: Computer Forensic Examiner Slime Troy RDCS Procedure CPT: Indications: OK Cardiac Hx: Technical Quality: Fair Contrast 1: Total Dose (mL): Contrast 2: Total Dose (mL): MEASUREMENTS (Male / Female) Normal Values 2D ECHO LV Diastolic Diameter PLAX 5.2 cm 4.2 - 5.9 / 3.9 - 5.3 cm LV Systolic Diameter PLAX 4.7 cm IVS Diastolic Thickness 1.3 cm 0.6 - 1.0 / 0.6 - 0.9 cm LVPW Diastolic Thickness 1.4 cm 0.6 - 1.0 / 0.6 - 0.9 cm LV Relative Wall Thickness 0.5 RV Internal Dim ED PLAX 4.0 cm Aortic Root Diameter 0.0 cm LA Systolic Diameter LX 4.3 cm 3.0 - 4.0 / 2.7 - 3.8 cm FINDINGS Left Ventricle Left ventricular ejection fraction is estimated at 12 %. Left ventricular cavity size normal. Mild concentric left ventricular hypertrophy. Severely reduced global left ventricular systolic function. Impella catheter in LVOT Right Ventricle Moderate right ventricular dilatation. Right Atrium Normal right atrial size. Left Atrium Mild left atrial dilatation. Mitral Valve Structurally normal mitral valve. Mild mitral regurgitation. Aortic Valve Aortic valve not well visualized. Tricuspid Valve Tricuspid valve not well visualized. Pulmonic Valve Pulmonic valve not well visualized. Pericardium Normal pericardium. No pericardial effusion. Aorta Normal size aortic root and proximal ascending aorta. CONCLUSIONS Severe LV systolic dysfunction secondary to extensive myocardial infarction and LAD distribution Mild mitral regurgitation and mild tricuspid regurgitation Dilated right ventricle Previewed by: Dr. Dayday Kong MD (Electronically Signed) Final Date: 12 Aug 2022 11:06
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
--- NOTE | 2022-08-12 11:33 | PN ---
PROGRESS NOTE SUBJECTIVE: Nathaniel is a 57-year-old gentleman who presented to hospital with acute anterior wall myocardial infarction with cardiogenic shock, underwent emergent cardiac catheterization and angioplasty of the occluded LAD. The patient had a very stormy postprocedure course, developed respiratory distress and had to be intubated and placed on vent. He was in cardiogenic shock and an Impella device had to be placed. Tonight, he has had issues with circulatory insufficiency involving right leg which was managed by the outside production inspector through night. This morning, he is not requiring much support from Impella and it is going to be removed. He has had issues with hematuria and had some bleeding at the access site in the right groin. OBJECTIVE: GENERAL: He is intubated, vented, paralyzed. VITAL SIGNS: Blood pressure has improved to 128/85, respiratory rate is 18, heart rate is 87 beats per minute. Remains in sinus rhythm. NECK: There is no jugular venous distention. CHEST: Reveals diminished air entry bilaterally. HEART: Reveals first and second heart sounds. No gallop. EXTREMITIES: Exam of extremities did not reveal any edema. Right foot pulses are diminished. MEDICATIONS: He is currently on aspirin, Lipitor, amiodarone, and Effient. LABORATORY DATA: Labs show that the hemoglobin is 13.8, white cell count is elevated at 17.5. Potassium is 5.9. Has renal insufficiency. The patient came in with a creatinine of 1. This morning, it is 2 and BUN is 30, probably related to severe hypotension. I am going to consult Nephrology for the same. ASSESSMENT: 1. Acute anterior wall myocardial infarction. 2. Cardiogenic shock. 3. Acute renal failure. PLAN: I am going to consult Nephrology. Continue current medications. Prognosis is guarded. We will remove the Impella this morning and see how he does. The patient has had ventricular tachycardia, ventricular fibrillation and is currently on amiodarone. I will continue this and I will reassess the need for this tomorrow. MMODL / IJN: [id number] /
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
[2022-08-12 11:57] LABS: Glucose,Whole Blood 225 mg/dL (70-110)
[2022-08-12] MEDS ORDERED: DEXTROSE 50% SYRINGE 50 ML IVP PRN (12:08)
[2022-08-12] MEDS: INSULIN ASPART (NovoLOG) 100 UNIT/ML VIAL SQ SCH ×2 (12:13→17:26)
--- NOTE | 2022-08-12 13:45 | XR ---
EXAMINATION TYPE: XR chest 1V portable DATE OF EXAM: 08/12/2022 CLINICAL HISTORY: Difficulty breathing progress study. TECHNIQUE: Single AP portable supine view of the chest is obtained. COMPARISON: Chest x-ray from earlier today and older studies FINDINGS: Stable endotracheal and orogastric tubes. Interval removal of the left ventricular assist device. Cardiac silhouette size stable and mildly enlarged with mild central vascular congestion. No suspicio us new focal airspace opacity, pleural effusion, or pneumothorax seen. Osseous structures are intact. IMPRESSION: Mild cardiomegaly with mild central vascular congestion redemonstrated. No significant ch gwendolyn from one day earlier.
--- NOTE | 2022-08-12 13:46 | US ---
EXAMINATION TYPE: US kidneys/renal and bladder DATE OF EXAM: 08/12/2022 Exam done portable in ICU COMPARISON: NONE CLINICAL INDICATION: Male, 57 years old with history of brant; EXAM MEASUREMENTS: Right Kidney: 12.0 x 6.1 x 5.1 cm Left Kidney: 11.3 x 6.5 x 4.7 cm Right Kidney: No hydronephrosis or masses seen Left Kidney: 1.7cm exophytic hypoechoic area superior mid pole, limited by rib shadowing and overlyin g bowel gas Bladder: not imaged due to femostop covering patient's pelvis Some increased cortical echogenicity bilaterally. There are a few small simple appearing thin-walled cyst in the left kidney. No hydronephrosis seen bilaterally The urinary bladder cannot be assessed. IMPRESSION: Evidence of chronic medical renal disease. No hydronephrosis seen bilaterally.
[2022-08-12] MEDS ORDERED: ARTIFICIAL TEARS-HYPROMELLOSE DROPS 15 ML BTL BOTH EYES SCH (16:00)
[2022-08-12 17:22] LABS: Glucose,Whole Blood 119 mg/dL (70-110)
[2022-08-12] MEDS: AMIODARONE 360 MG in DEXTROSE 5% IN WATER 200 ML IV ONE ×2 (17:28)
[2022-08-12] MEDS ORDERED: FUROSEMIDE 10 MG/ML 10 ML VIAL IV STA (20:15)
[2022-08-12] MEDS ORDERED: CALCIUM GLUCONATE IN NACL 1 GM in SALINE 1 100ML.BAG IVPB ONE (20:16)
[2022-08-12] MEDS ORDERED: DEXTROSE 50% SYRINGE 50 ML IVP ONE (20:21)
[2022-08-12] MEDS ORDERED: SODIUM BICARB 8.4% 50 ML SYR (1 MEQ/ML) IV ONE (20:21)
[2022-08-12] MEDS ORDERED: INSULIN REGULAR 100 UNIT/ML VIAL (IV) IV ONE (20:21)
[2022-08-12] MEDS: ATORVASTATIN 80 MG TAB PO SCH (20:48)
[2022-08-12] MEDS ORDERED: SODIUM BICARB 8.4% 50 ML SYR (1 MEQ/ML) ONE (20:57)
[2022-08-13 00:19] LABS: Glucose,Whole Blood 95 mg/dL (70-110)
[2022-08-13] MEDS: SODIUM CHLORIDE 0.9% 1,000 ML IV SCH ×2 (01:49→20:19)
[2022-08-13] MEDS: NOREPINEPHRINE 4 MG in SODIUM CHLORIDE 0.9% 250 ML IV SCH (03:06)
[2022-08-13] MEDS: DEXTROSE 5% IN WATER 1,000 ML with SODIUM BICARB (1 MEQ/ML) 150 ML IV SCH (03:07)
[2022-08-13 04:13] LABS: Basophils # (A) 0.1 k/uL (0-0.2); Basophils % (A) 0 %; Eosinophils # (A) 0.1 k/uL (0-0.7); Eosinophils % (A) 0 %; HCT 39.6 % (39.0-53.0); HGB 13.5 gm/dL (13.0-17.5); Lymphocytes # (A) 3.4 k/uL (1.0-4.8); Lymphocytes % (A) 15 %; MCH 31.6 pg (25.0-35.0); MCHC 34.2 g/dL (31.0-37.0); MCV 92.4 fL (80.0-100.0); Mean Platelet Volume 9.6; Monocytes # (A) 1.4 k/uL (0-1.0); Monocytes % (A) 6 %; Neutrophils # (A) 17.7 k/uL (1.3-7.7); Neutrophils % (A) 77 %; Platelet Count 135 k/uL (150-450); RBC 4.28 m/uL (4.30-5.90); RDW 13.4 % (11.5-15.5); WBC 22.9 k/uL (3.8-10.6)
[2022-08-13 04:26] LABS: Calcium 7.4 mg/dL (8.4-10.2)
[2022-08-13 05:56] LABS: Glucose,Whole Blood 118 mg/dL (70-110)
[2022-08-13 05:58] LABS: ABG Base Excess 1.7 mmol/L; ABG HCO3 25 mmol/L (21-25); ABG Oxygen Saturation 98.9 % (94-97); ABG PCO2 35 mmHg (35-45); ABG PH 7.47 (7.35-7.45); ABG PO2 108 mmHg (83-108); ABG TCO2 26 mmol/L (19-24); Allen Test Performed? Yes
--- NOTE | 2022-08-13 06:23 | XR ---
EXAMINATION TYPE: XR chest 1V portable DATE OF EXAM: 08/13/2022 CLINICAL HISTORY: Difficulty breathing progress study. TECHNIQUE: Single AP portable semiupright view of the chest is obtained. COMPARISON: Chest x-ray from one day earlier and older studies FINDINGS: Stable endotracheal and orogastric tubes. Cardiac silhouette size is upper limits of normal with improved mild central vascular congestion. No suspicious new focal airspace opacity, pleural effusion, or pneumothorax seen. Osseous structures are intact. IMPRESSION: Resolving central vascular congestion. No new acute focal infiltrate.
[2022-08-13] MEDS: INSULIN ASPART (NovoLOG) 100 UNIT/ML VIAL SQ SCH ×5 (06:29→23:55)
[2022-08-13] MEDS: PRASUGREL 10 MG TAB PO SCH (07:45)
[2022-08-13] MEDS: CHLORHEXIDINE GLUCONATE 15 ML CUP MUCOUS MEM SCH ×2 (07:46→20:18)
[2022-08-13] MEDS: ASPIRIN 81 MG PO SCH (07:46)
[2022-08-13] MEDS: PANTOPRAZOLE 40 MG/10 ML VIAL IV SCH (07:46)
[2022-08-13] MEDS: METOPROLOL TARTRATE 25 MG TAB PO SCH ×2 (07:46→20:19)
[2022-08-13] MEDS ORDERED: FUROSEMIDE 10 MG/ML 10 ML VIAL IV STA (08:24)
--- NOTE | 2022-08-13 11:00 | P.PN ---
Subjective Progress Note Date: 08/13/22 Principal diagnosis: Acute hypoxic respiratory failure secondary to acute anterior wall WA and ventricular fibrillation cardiac arrest. This is a 57-year-old white male with known history of hypertension, no previous history of documented coronary artery disease. Patient presented to the ER yesterday with acute onset of retrosternal chest pain scale of 8/10. Pain started about 20 minutes prior to arrival to the ER. Upon arrival the patient was noted to be pale and diaphoretic. Pain actually started with the patient was working in the [employer], and he had a brief episode of almost near syncope. He was also complaining of shortness of breath. Patient was found to have acute myocardial infarction, underwent cardiac catheterization and he was noted to have subtotally occluded proximal LAD. He underwent angioplasty and stenting. Patient actually had successful stenting of the proximal LAD and successful placement of M [place] catheter for hemodynamic support because during his cardiac catheterization, patient had episodes of ventricular fibrillation and tachycardia requiring CPR and multiple cardioversions. Patient was intubated by anesthesia while in the catheterization lab. Patient was found to have also chronically occluded mid RCA and elevated left ventricular end- diastolic pressure patient was transferred to the ICU on mechanical ventilation, and I was asked to see him on consultation. Patient is now on assist control rate of 20, volume 450 FiO2 40% and PEEP of 5. ABG showed a pO2 of 197 pCO2 45 pH of 7.34 and this was on 70% FiO2. Patient is on propofol at 40 mcg/kg/m he was on 1 mg of Versed which I have discontinued his also on Nimbex at 2 mcg/kg/m norepinephrine at 0.04 mcg/kg/m amiodarone 0.5 mg/m. Patient was on bicarb drip at 50 mL per hour and I cut it down to 25 mL per hour. Patient was also noted to have acute hyperkalemia and acute kidney injury that seems to be progressively getting worse as I recommended nephrology consultation. Patient is noted to have coffee ground material in the nasogastric tube and he had b loody urine. Heparin was briefly placed on hold by cardiology already. And I am [place] device is being addressed by cardiology today. WBC count is 17.5 hemoglobin is 13.8 PTT is 46.3. Fibrinogen 357, potassium 5.9 bicarb is up to 28 BUN is 30 creatinine 2.19 LDH is 2620 calcium is 7.0 chest x-ray this morning showed mild cardiomegaly and central venous congestion consistent with mild CHF. Echocardiogram on this admission showed ejection fraction of 10% and there is also evidence of mild mitral regurgitation 20, tidal volume 450, FiO2 40%, and PEEP of 5 patient was reevaluated today on 08/13/2022, patient remains in the ICU, intubated and mechanically ventilated. Patient is on assist control rate of 20 tidal volume 450 FiO2 45% and PEEP of 5 ABG showed a pO2 of 108 pCO2 35 pH of 7.47 hence his rate was cut down to 18 and his FiO2 cut down to 40%. the impella was removed by cardiology yesterday, patient is still requiring norepinephrine at 0.12 mcg/kg/m for blood pressure support. Remains on propofol at 50 mcg/kg/m. Patient has very poor minimal urine output and history of func tioning is getting much worse. Hence I'm recommending a trial of Lasix 80 mg IV push 1. In the meantime patient will need to be seen by nephrology for his acute kidney injury secondary to hypotension/secondary to acute tubular necrosis. His IV fluids remains at 0.9 /75 mL per hour chest x-ray showed significant improvement in his congestive heart failure. WBC count is 22.9 hemoglobin 13.5. Platelets are 135. Basic metabolic profile and electrolytes are normal however his BUN is up to 54 creatinine is up to 4.35. His initial creatinine on admission was 1.08. Clearly this is consistent with acute kidney injury/acute tubular necrosis. Still concerned about mentation, hence will give the patient a sedation holiday/interruption and assess mental status, if determined to have possible anoxic brain injury will likely order a CT of the brain and initiate a neurological consultation Objective - Vital Signs Vital signs: Vital Signs Temp 98.2 F 08/13/22 08:00 Pulse 71 08/13/22 08:00 Resp 30 H 08/13/22 08:00 BP 141/111 08/11/22 22:40 Pulse Ox 99 08/13/22 08:00 FiO2 40 08/13/22 10:41 Intake & Output 08/12/22 08/13/22 08/13/22 18:59 06:59 18:59 Intake Total 3551.827 3840.896 403.514 Output Total 1055 604 0 Balance 258.502 0002.896 403.514 Weight 90 kg 91.6 kg Intake: IV 1272 1222 324 Dextrose 5% in Water 1, 375 250 000 ml @ 25 mls/hr IV . Q24H [facility] with Sodium Bicarb (1 Meq/ml) 150 ml Rx#:[id number] Pressure bag 72 72 24 Sodium Chloride 0.9% 1, 825 900 300 000 ml @ 75 mls/hr IV . [id number] [facility] Rx#:[id number] Intake, IV Titration 688.783 694.896 79.514 Amount Cisatracurium 200 mg In 109.411 Sodium Chloride 0.9% 180 ml @ 2 MCG/KG/MIN 9.798 mls/hr IV .[id number] [facility] Rx #:[id number] Midazolam HCl 50 mg In 8.35 Sodium Chloride 0.9% 40 ml @ 1 MG/HR 1 mls/hr IV .Q24H [facility] Rx#:[id number] Norepinephrine 4 mg In 350.121 331.977 42.773 Sodium Chloride 0.9% 250 ml @ 0.05 MCG/KG/MIN 15. 554 mls/hr IV .[id number] [facility] Rx#:[id number] propofoL 1,000 mg In 220.901 362.919 36.741 Empty Bag 1 bag @ 15 MCG/ KG/MIN 7.348 mls/hr IV . [id number] [facility] Rx#:[id number] Output: Gastric Drainage 1000 600 Urine 55 4 0 Other: Voiding Method Indwelling Catheter Indwelling Catheter Indwelling Catheter # Bowel Movements 1 ABP, PAP, CO, CI - Last Documented Arterial Blood Pressure 109/64 - Exam Physical Exam: Revealed a 57-year-old white male intubated and mechanically ventilated sedated on propofol, Nimbex was discontinued yesterday. HEENT:[Neck is supple.] [No neck masses.] [No thyromegaly.] [No JVD.] Dry mucous membranes, endotracheal tube and orogastric tube are intact. Chest: [Symmetrical chest expansion, diminished breath sounds at the bases no crackles or rhonchi or wheezes. Cardiac Exam: [Normal S1 and S2, no S3 gallop, 2/6 systolic murmur thought the precordium Abdomen: [Soft, nontender, no megaly, no rebound, no guarding, normal bowel sounds.] Patient has a venous sheath in the left groin Extremities: [No clubbing, no edema, or cyanosis. Neurological Exam: Could not assess patient remains on propofol which I will interrupt today, and assess mental status off sedation Psychiatric: Could not assess. Remains on propofol for now - Labs CBC & Chem 7: 08/13/22 03:45 08/13/22 03:45 Labs: Abnormal Lab Results - Last 24 Hours (Table) 08/12/22 08/12/22 08/12/22 Range/Units 04:50 11:20 11:52 WBC (3.8-10.6) k/uL RBC (4.30-5.90) m/uL Plt Count (150-450) k/uL Neutrophils # (1.3-7.7) k/uL Monocytes # (0-1.0) k/uL ABG pH (7.35-7.45) ABG Total CO2 (19-24) mmol/L ABG O2 Saturation (94-97) % ABG Lactic Acid 3.0 H* (0.5-1.6) mmol/L Sodium (137-145) mmol/L Potassium 6.0 H (3.5-5.1) mmol/L BUN (9-20) mg/dL Creatinine (0.66-1.25) mg/dL Glucose (74-99) mg/dL POC Glucose (mg/dL) 225 H (70-110) mg/dL Calcium (8.4-10.2) mg/dL 08/12/22 08/12/22 08/12/22 Range/Units 17:18 17:20 18:50 WBC (3.8-10.6) k/uL RBC (4.30-5.90) m/uL Plt Count (150-450) k/uL Neutrophils # (1.3-7.7) k/uL Monocytes # (0-1.0) k/uL ABG pH (7.35-7.45) ABG Total CO2 (19-24) mmol/L ABG O2 Saturation (94-97) % ABG Lactic Acid (0.5-1.6) mmol/L Sodium (137-145) mmol/L Potassium 6.1 H* 6.0 H (3.5-5.1) mmol/L BUN (9-20) mg/dL Creatinine (0.66-1.25) mg/dL Glucose (74-99) mg/dL POC Glucose (mg/dL) 119 H (70-110) mg/dL Calcium (8.4-10.2) mg/dL 08/13/22 08/13/22 08/13/22 Range/Units 03:45 03:45 05:55 WBC 22.9 H (3.8-10.6) k/uL RBC 4.28 L (4.30-5.90) m/uL Plt Count 135 L (150-450) k/uL Neutrophils # 17.7 H (1.3-7.7) k/uL Monocytes # 1.4 H (0-1.0) k/uL ABG pH (7.35-7.45) ABG Total CO2 (19-24) mmol/L ABG O2 Saturation (94-97) % ABG Lactic Acid (0.5-1.6) mmol/L Sodium 136 L (137-145) mmol/L Potassium (3.5-5.1) mmol/L BUN 54 H (9-20) mg/dL Creatinine 4.35 H (0.66-1.25) mg/dL Glucose 104 H (74-99) mg/dL POC Glucose (mg/dL) 118 H (70-110) mg/dL Calcium 7.4 L (8.4-10.2) mg/dL 08/13/22 Range/Units 05:56 WBC (3.8-10.6) k/uL RBC (4.30-5.90) m/uL Plt Count (150-450) k/uL Neutrophils # (1.3-7.7) k/uL Monocytes # (0-1.0) k/uL ABG pH 7.47 H (7.35-7.45) ABG Total CO2 26 H (19-24) mmol/L ABG O2 Saturation 98.9 H (94-97) % ABG Lactic Acid (0.5-1.6) mmol/L Sodium (137-145) mmol/L Potassium (3.5-5.1) mmol/L BUN (9-20) mg/dL Creatinine (0.66-1.25) mg/dL Glucose (74-99) mg/dL POC Glucose (mg/dL) (70-110) mg/dL Calcium (8.4-10.2) mg/dL Assessment and Plan Assessment: Impression: Acute hypoxic respiratory failure secondary to acute anterior wall myocardial infarction and cardiogenic shock. Status post PTCA of proximal LAD, angioplasty, placement of an impella device for severe LV dysfunction and cardiogenic shock postoperative day #2 Cardiogenic shock Acute kidney injury secondary to ATN secondary to cardiac arrest Ventricular fibrillation arrest, amiodarone has been discontinued. Acute metabolic acidosis and acute kidney injury/acute tubular necrosis. Severe systolic dysfunction with ejection fraction of 12% Possible anoxic brain injury, plan to hold sedation, assess mental status today, and if not noted to be normal we'll arrange for a CT of the brain and for neuro consultation. Acute hyperkalemia secondary to acute kidney injury, resolved Recommendation: Continue ventilatory support, definitely no weaning today mostly because patient remains on norepinephrine, his kidney functioning is worse, and his mental status is yet to be addressed. Continue propofol will have sedation interruption today and assessment of mental status GI and DVT prophylaxis. Lasix 80 mg IV push was given a trial basis but no significant improvement noted in his urine output. Start enteral feeding today. Continue hemodynamic support, continue norepinephrine and titrate to a mean arterial pressure of 65 or higher Prognosis is extremely poor and guarded No plans to do any weaning from mechanical ventilation today Critical care time is over 30 minutes Time with Patient: Greater than 30
--- NOTE | 2022-08-13 11:31 | P.PN ---
Subjective Patient is seen in follow-up for acute kidney injury. Renal function worsening. Remains oliguric. Potassium level normal. On Levophed. Intubated. On 40% FiO2. Vital signs are stable. On vasopressor support. General: Resting in bed. HEENT: Intubated. LUNGS: No audible rhonchi or wheezes. HEART: Rate and Rhythm are regular. ABDOMEN: No distention. Soft. EXTREMITITES: No edema. Objective - Vital Signs Vital signs: Vital Signs Temp 98.2 F 08/13/22 08:00 Pulse 71 08/13/22 08:00 Resp 30 H 08/13/22 08:00 BP 141/111 08/11/22 22:40 Pulse Ox 99 08/13/22 08:00 FiO2 40 08/13/22 10:41 Intake & Output 08/12/22 08/13/22 08/13/22 18:59 06:59 18:59 Intake Total 1165.308 7344.896 403.514 Output Total 1055 604 0 Balance 445.496 8418.896 403.514 Weight 90 kg 91.6 kg Intake: IV 1272 1222 324 Dextrose 5% in Water 1, 375 250 000 ml @ 25 mls/hr IV . Q24H [facility] with Sodium Bicarb (1 Meq/ml) 150 ml Rx#:[id number] Pressure bag 72 72 24 Sodium Chloride 0.9% 1, 825 900 300 000 ml @ 75 mls/hr IV . [id number] [facility] Rx#:[id number] Intake, IV Titration 688.783 694.896 79.514 Amount Cisatracurium 200 mg In 109.411 Sodium Chloride 0.9% 180 ml @ 2 MCG/KG/MIN 9.798 mls/hr IV .[id number] [facility] Rx #:[id number] Midazolam HCl 50 mg In 8.35 Sodium Chloride 0.9% 40 ml @ 1 MG/HR 1 mls/hr IV .Q24H [facility] Rx#:[id number] Norepinephrine 4 mg In 350.121 331.977 42.773 Sodium Chloride 0.9% 250 ml @ 0.05 MCG/KG/MIN 15. 554 mls/hr IV .[id number] [facility] Rx#:[id number] propofoL 1,000 mg In 220.901 362.919 36.741 Empty Bag 1 bag @ 15 MCG/ KG/MIN 7.348 mls/hr IV . [id number] [facility] Rx#:[id number] Output: Gastric Drainage 1000 600 Urine 55 4 0 Other: Voiding Method Indwelling Catheter Indwelling Catheter Indwelling Catheter # Bowel Movements 1 ABP, PAP, CO, CI - Last Documented Arterial Blood Pressure 109/64 - Labs CBC & Chem 7: 08/13/22 03:45 08/13/22 03:45 Labs: Abnormal Lab Results - Last 24 Hours (Table) 08/12/22 08/12/22 08/12/22 Range/Units 04:50 11:20 11:52 WBC (3.8-10.6) k/uL RBC (4.30-5.90) m/uL Plt Count (150-450) k/uL Neutrophils # (1.3-7.7) k/uL Monocytes # (0-1.0) k/uL ABG pH (7.35-7.45) ABG Total CO2 (19-24) mmol/L ABG O2 Saturation (94-97) % ABG Lactic Acid 3.0 H* (0.5-1.6) mmol/L Sodium (137-145) mmol/L Potassium 6.0 H (3.5-5.1) mmol/L BUN (9-20) mg/dL Creatinine (0.66-1.25) mg/dL Glucose (74-99) mg/dL POC Glucose (mg/dL) 225 H (70-110) mg/dL Calcium (8.4-10.2) mg/dL 08/12/22 08/12/22 08/12/22 Range/Units 17:18 17:20 18:50 WBC (3.8-10.6) k/uL RBC (4.30-5.90) m/uL Plt Count (150-450) k/uL Neutrophils # (1.3-7.7) k/uL Monocytes # (0-1.0) k/uL ABG pH (7.35-7.45) ABG Total CO2 (19-24) mmol/L ABG O2 Saturation (94-97) % ABG Lactic Acid (0.5-1.6) mmol/L Sodium (137-145) mmol/L Potassium 6.1 H* 6.0 H (3.5-5.1) mmol/L BUN (9-20) mg/dL Creatinine (0.66-1.25) mg/dL Glucose (74-99) mg/dL POC Glucose (mg/dL) 119 H (70-110) mg/dL Calcium (8.4-10.2) mg/dL 08/13/22 08/13/22 08/13/22 Range/Units 03:45 03:45 05:55 WBC 22.9 H (3.8-10.6) k/uL RBC 4.28 L (4.30-5.90) m/uL Plt Count 135 L (150-450) k/uL Neutrophils # 17.7 H (1.3-7.7) k/uL Monocytes # 1.4 H (0-1.0) k/uL ABG pH (7.35-7.45) ABG Total CO2 (19-24) mmol/L ABG O2 Saturation (94-97) % ABG Lactic Acid (0.5-1.6) mmol/L Sodium 136 L (137-145) mmol/L Potassium (3.5-5.1) mmol/L BUN 54 H (9-20) mg/dL Creatinine 4.35 H (0.66-1.25) mg/dL Glucose 104 H (74-99) mg/dL POC Glucose (mg/dL) 118 H (70-110) mg/dL Calcium 7.4 L (8.4-10.2) mg/dL 08/13/22 Range/Units 05:56 WBC (3.8-10.6) k/uL RBC (4.30-5.90) m/uL Plt Count (150-450) k/uL Neutrophils # (1.3-7.7) k/uL Monocytes # (0-1.0) k/uL ABG pH 7.47 H (7.35-7.45) ABG Total CO2 26 H (19-24) mmol/L ABG O2 Saturation 98.9 H (94-97) % ABG Lactic Acid (0.5-1.6) mmol/L Sodium (137-145) mmol/L Potassium (3.5-5.1) mmol/L BUN (9-20) mg/dL Creatinine (0.66-1.25) mg/dL Glucose (74-99) mg/dL POC Glucose (mg/dL) (70-110) mg/dL Calcium (8.4-10.2) mg/dL Assessment and Plan Plan: Assessment: 1. Acute kidney injury secondary to ATN secondary to cardiac arrest. Also received IV contrast on 08/11/2022 for cardiac catheterization. Baseline creatinine near 1 and is up at 4.35 today. Oliguric. No hydronephrosis noted on kidney ultrasound. 2. Acute SD status post cardiac catheterization with LAD stent placement. Impella removed 08/12/2022. 3. V. fib arrest s/p amiodarone drip. Cardiology following. 4. Hyperkalemia secondary to acute kidney injury. It was also hemolyzed sample. Potassium level 4.0 today. 5. Metabolic acidosis secondary to acute kidney injury status post bicarb drip. Improved. 6. Severe systolic dysfunction with ejection fraction of 12%. Plan: Maintain IV fluids. Avoid nephrotoxins. 80 mg IV Lasix given this morning. Continue to monitor renal function and urine output. If urine output not improved by tomorrow, will initiate renal placement therapy.
--- NOTE | 2022-08-13 11:36 | PN ---
PROGRESS NOTE SUBJECTIVE: Nathaniel is a 57-year-old gentleman, who is admitted to hospital with acute anterior wall myocardial infarction, had cardiogenic shock and developed renal failure secondary to probably acute tubular necrosis. This morning, he is still intubated, off sedation and is not having any meaningful activity. Neurology is being consulted and a CT scan will be done. He is on aspirin, Lipitor, and Effient. OBJECTIVE: GENERAL: Comfortable at rest, intubated, sedated, vented. VITAL SIGNS: Heart rate is 70 beats per minute, blood pressure is 109/64, respiratory rate is 18. CHEST: Reveals diminished air entry at the bases. HEART: Reveals first and second heart sounds. No gallop. No murmur. ABDOMEN: Soft. EXTREMITIES: Did not reveal any edema. Peripheral pulses are felt. LABORATORY DATA: Showed that the hemoglobin is 13.5, platelet count is 135. Potassium is 4, BUN is 54, creatinine is 4.3. ASSESSMENT: 1. Acute anterior wall myocardial infarction. 2. Ischemic cardiomyopathy with severe left ventricular dysfunction. 3. Acute renal failure. PLAN: We will continue current medications. Prognosis is guarded. MMODL / IJN: [id number] /
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
[2022-08-13 13:00] LABS: Glucose,Whole Blood 122 mg/dL (70-110)
--- NOTE | 2022-08-13 13:01 | CT ---
EXAMINATION TYPE: CT brain wo con CT DLP: 1267.4 mGycm, Automated exposure control for dose reduction was used. DATE OF EXAM: 08/13/2022 12:49 PM COMPARISON: 09/28/2018. CLINICAL INDICATION:Male, 57 years old with history of not following commands, Stemi, not following c ommands TECHNIQUE: Brain: Axial CT images of the brain were obtained with coronal and sagittal reformats created and rev iewed. Contrast used: None. Oral contrast used: None. FINDINGS: Brain: Extra-axial spaces: No abnormal extra-axial fluid collections. Ventricular system: Within normal limits Cerebral parenchyma: No acute intraparenchymal hemorrhage or mass effect. The oliveros-white junction is well differentiated. Cerebellum: Unremarkable. Mass effect: No evidence of midline shift. Intracranial vasculature: Atherosclerotic calcifications of the intracranial vessels. Soft tissues: Normal. Calvarium/osseous structures: No depressed skull fracture. Paranasal sinuses and mastoid air cells: Mild scattered paranasal sinus disease. Visualized orbits: Orbital contents are intact. Partially visualized support tubes. IMPRESSION: No acute intracranial process.
[2022-08-13] MEDS: NOREPINEPHRINE 8 MG in SODIUM CHLORIDE 0.9% 250 ML IV SCH ×2 (13:50→20:36)
[2022-08-13] MEDS: PIPERACILLIN-TAZOBACTAM 3.375 GM in SODIUM CHLORIDE 0.9% 100 ML IVPB SCH ×2 (14:18→23:58)
[2022-08-13 18:01] LABS: Glucose,Whole Blood 130 mg/dL (70-110)
[2022-08-13] MEDS ORDERED: levETIRAcetam IV 500 MG/5 ML VIAL IVP STA (19:17)
[2022-08-13] MEDS: ATORVASTATIN 80 MG TAB PO SCH (20:18)
[2022-08-13] MEDS: SODIUM CHLORIDE 0.9% 80 ML with fentaNYL (PF) 1,000 MCG IV SCH ×2 (20:32)
[2022-08-13] MEDS ORDERED: IPRATROPIUM-ALBUTEROL 3 ML NEB INHALATION PRN (22:48)
[2022-08-13] MEDS: VASOPRESSIN 60 UNIT in SODIUM CHLORIDE 0.9% 150 ML IV SCH (23:46)
[2022-08-13 23:48] LABS: Glucose,Whole Blood 125 mg/dL (70-110)
[2022-08-14] MEDS: SODIUM CHLORIDE 0.9% 1,000 ML IV SCH (03:10)
[2022-08-14] MEDS: NOREPINEPHRINE 8 MG in SODIUM CHLORIDE 0.9% 250 ML IV SCH ×4 (03:11→22:22)
[2022-08-14 04:07] LABS: Basophils # (A) 0.1 k/uL (0-0.2); Basophils % (A) 0 %; Eosinophils # (A) 0.1 k/uL (0-0.7); Eosinophils % (A) 0 %; HCT 35.6 % (39.0-53.0); Lymphocytes # (A) 1.8 k/uL (1.0-4.8); Lymphocytes % (A) 8 %; MCH 32.2 pg (25.0-35.0); MCHC 33.8 g/dL (31.0-37.0); MCV 95.2 fL (80.0-100.0); Mean Platelet Volume 9.6; Monocytes # (A) 1.2 k/uL (0-1.0); Monocytes % (A) 5 %; Neutrophils # (A) 19.4 k/uL (1.3-7.7); Neutrophils % (A) 86 %; Platelet Count 107 k/uL (150-450); RBC 3.74 m/uL (4.30-5.90); RDW 13.7 % (11.5-15.5); WBC 22.7 k/uL (3.8-10.6)
--- NOTE | 2022-08-14 04:39 | EEG ---
ELECTROENCEPHALOGRAM REPORT PREAMBLE: This is a 57-year-old male with cardiac arrest. EEG FINDINGS: This is a 21-channel digital EEG recorded with video component, utilizing 10/20 international system with referential and bipolar montages. The background consists of somewhat disorganized, mixed frequencies of predominantly moderate- to high- amplitude and frontally predominant 3 Hz delta slowing, intermixed with some brief periods of suppression. Some intermittent, relatively well-formed, 6 to 7 Hz theta activity was also seen intermittently during the study. Some multifocal sharply contoured waves were seen. Occasionally, some generalized sharp appearing waves were also seen. At the end of the study, rhythmic, high-amplitude, generalized, 3 Hz delta slowing was also seen. No clinical seizures were observed however. IMPRESSION: This is an abnormal EEG due to 1. Background slowing and disorganization, suggestive of encephalopathy of moderate to severe degree. 2. Presence of intermittent, high-amplitude, rhythmic, frontally predominant delta slowing was seen with sporadic, multifocal, sharply contoured waves. This may suggest underlying convulsive tendency. Suggest prolonged EEG for further evaluation. Clinical correlation also recommended. MMODL / IJN: [id number] / MTDD
[2022-08-14 04:41] LABS: Albumin 2.6 g/dL (3.5-5.0); Potassium 4.7 mmol/L (3.5-5.1); Total Bilirubin 1.2 mg/dL (0.2-1.3); Total Protein 4.8 g/dL (6.3-8.2)
[2022-08-14 06:15] LABS: ABG Base Excess -4.7 mmol/L; ABG HCO3 21 mmol/L (21-25); ABG Oxygen Saturation 98.1 % (94-97); ABG PCO2 38 mmHg (35-45); ABG PH 7.35 (7.35-7.45); ABG PO2 99 mmHg (83-108); ABG TCO2 22 mmol/L (19-24); Allen Test Performed? Yes
[2022-08-14] MEDS: INSULIN ASPART (NovoLOG) 100 UNIT/ML VIAL SQ SCH ×4 (06:34→23:38)
--- NOTE | 2022-08-14 06:59 | P.PN ---
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 He was in cardiogenic shock where mechanical support was needed and subsequently the Impella was taken out. August [id number] The patient was seen and evaluated this morning. He is not doing well. Hemodynamically he still requiring vasopressors and currently is on norepinephrine and vasopressin's. He is in acute renal failure. He is not making any urine. He is in sinus mechanism. Beside that he is on dual antiplatelet therapy as well as a statin. From a cardiovascular standpoint of view, we'll continue the current medical regimen. Continue hemodynamic support using vasopressors. The patient might benefit from being transferred into a [facility] center. The prognosis is extremely poor Assessment Acute anterior ST elevation myocardial infarction Cardiogenic shock Acute renal failure Multiple comorbid conditions Plan Continue dual antiplatelet therapy and high intensity statin Continue hemodynamic support The patient might benefit from transfer to tertiary center Follow-up with the patient Objective - Vital Signs Vital signs: Vital Signs Temp 98.4 F 08/14/22 04:00 Pulse 86 08/14/22 06:00 Resp 17 08/14/22 06:00 BP 141/111 08/11/22 22:40 Pulse Ox 93 L 08/14/22 06:00 FiO2 60 08/14/22 06:24 Intake & Output 08/13/22 08/13/22 08/14/22 06:59 18:59 06:59 Intake Total 6432.594 3573.148 1791.255 Output Total 604 105 5 Balance 9952.333 0832.148 1786.255 Weight 91.6 kg 94.6 kg Intake: IV 1222 1053 891 Dextrose 5% in Water 1, 250 000 ml @ 25 mls/hr IV . Q24H LEIGH with Sodium Bicarb (1 Meq/ml) 150 ml Rx#:[id number] Pressure bag 72 78 66 Sodium Chloride 0.9% 1, 900 975 825 000 ml @ 75 mls/hr IV . [id number] LEIGH Rx#:[id number] Intake, IV Titration 694.896 584.148 900.255 Amount Norepinephrine 4 mg In 331.977 176.023 Sodium Chloride 0.9% 250 ml @ 0.05 MCG/KG/MIN 15. 554 mls/hr IV .[id number] LEIGH Rx#:[id number] Norepinephrine 8 mg In 153.258 535.941 Sodium Chloride 0.9% 250 ml @ 0.03 MCG/KG/MIN 5. 317 mls/hr IV .Q24H LEIGH Rx#:[id number] Piperacillin-Tazobactam 3 100 .375 gm In Sodium Chloride 0.9% 100 ml @ 25 mls/hr IVPB Q8HR LEIGH Rx# :[id number] propofoL 1,000 mg In 362.919 154.867 364.314 Empty Bag 1 bag @ 15 MCG/ KG/MIN 7.348 mls/hr IV . [id number] LEIGH Rx#:[id number] Output: Gastric Drainage 600 100 Urine 4 5 5 Other: Voiding Method Indwelling Catheter Indwelling Catheter Indwelling Catheter # Bowel Movements 1 1 ABP, PAP, CO, CI - Last Documented Arterial Blood Pressure 96/60 - Labs CBC & Chem 7: 08/14/22 03:24 08/14/22 03:24 Labs: Abnormal Lab Results - Last 24 Hours (Table) 08/13/22 08/13/22 08/13/22 Range/Units 12:59 18:00 23:47 WBC (3.8-10.6) k/uL RBC (4.30-5.90) m/uL Hgb (13.0-17.5) gm/dL Hct (39.0-53.0) % Plt Count (150-450) k/uL Neutrophils # (1.3-7.7) k/uL Monocytes # (0-1.0) k/uL ABG O2 Saturation (94-97) % Sodium (137-145) mmol/L Carbon Dioxide (22-30) mmol/L BUN (9-20) mg/dL Creatinine (0.66-1.25) mg/dL Glucose (74-99) mg/dL POC Glucose (mg/dL) 122 H 130 H 125 H (70-110) mg/dL Calcium (8.4-10.2) mg/dL AST (17-59) U/L ALT (4-49) U/L Total Protein (6.3-8.2) g/dL Albumin (3.5-5.0) g/dL 08/14/22 08/14/22 08/14/22 Range/Units 03:24 03:24 06:10 WBC 22.7 H (3.8-10.6) k/uL RBC 3.74 L (4.30-5.90) m/uL Hgb 12.0 L (13.0-17.5) gm/dL Hct 35.6 L (39.0-53.0) % Plt Count 107 L (150-450) k/uL Neutrophils # 19.4 H (1.3-7.7) k/uL Monocytes # 1.2 H (0-1.0) k/uL ABG O2 Saturation 98.1 H (94-97) % Sodium 136 L (137-145) mmol/L Carbon Dioxide 20 L (22-30) mmol/L BUN 64 H (9-20) mg/dL Creatinine 7.25 H* (0.66-1.25) mg/dL Glucose 130 H (74-99) mg/dL POC Glucose (mg/dL) (70-110) mg/dL Calcium 7.0 L (8.4-10.2) mg/dL AST 621 H (17-59) U/L ALT 344 H (4-49) U/L Total Protein 4.8 L (6.3-8.2) g/dL Albumin 2.6 L (3.5-5.0) g/dL
[2022-08-14] MEDS: IPRATROPIUM-ALBUTEROL 3 ML NEB INHALATION SCH ×4 (07:40→20:25)
--- NOTE | 2022-08-14 07:54 | XR ---
EXAMINATION TYPE: XR chest 1V portable DATE OF EXAM: 08/14/2022 Comparison: 08/13/2022 Clinical History: 57-year-old male Tube placement Findings: ET and NG tube are satisfactory. Leftward patient rotation ultrasound on the heart and mediastinal co ntours. Heart appears borderline in size. Interstitial prominence persists. Some retrocardiac density is noted. Impression: Rotated exam. Correlate for background mild pulmonary vascular congestion which may be slightly incre ased. Some patchy retrocardiac atelectasis/consolidation is also increased.
[2022-08-14] MEDS ORDERED: CISATRACURIUM 2 MG/ML 5 ML VIAL IV ONE (08:44)
[2022-08-14] MEDS: DEXTROSE 5% IN WATER 1,000 ML with SODIUM BICARB (1 MEQ/ML) 150 ML IV SCH (09:04)
[2022-08-14] MEDS: ASPIRIN 81 MG PO SCH (09:50)
[2022-08-14] MEDS: PANTOPRAZOLE 40 MG/10 ML VIAL IV SCH (09:50)
[2022-08-14] MEDS: CHLORHEXIDINE GLUCONATE 15 ML CUP MUCOUS MEM SCH ×2 (09:51→20:55)
[2022-08-14] MEDS: levETIRAcetam IV 500 MG/5 ML VIAL IVP SCH (09:53)
--- NOTE | 2022-08-14 09:53 | XR ---
EXAMINATION TYPE: XR chest 1V portable DATE OF EXAM: 08/14/2022 HISTORY: Shortness of breath. COMPARISON: 08/14/2022 TECHNIQUE: Single view of the chest is submitted. FINDINGS: Endotracheal and NG tubes are unchanged. Left subclavian central venous line with its distal tip over lying the SVC. No evidence for pneumothorax. Persistent pulmonary venous congestion with hazy perihilar increased density in left lower lobe atele ctasis and/or effusion. The heart is stable. Hilar and mediastinal structures are within normal limits. Degenerative changes are seen of the dorsal spine. IMPRESSION: 1. Left subclavian central venous line with its distal tip overlying the SVC. No evidence for pneumo thorax.
[2022-08-14] MEDS: METOPROLOL TARTRATE 25 MG TAB PO SCH ×2 (09:58→23:15)
[2022-08-14] MEDS: PRASUGREL 10 MG TAB PO SCH (09:58)
--- NOTE | 2022-08-14 10:44 | PCN ---
PROCEDURE NOTE PROCEDURE PERFORMED: Left subclavian triple-lumen catheter. PREOPERATIVE DIAGNOSIS: Administration of fluids and pressors. POSTOPERATIVE DIAGNOSIS: Administration of fluids and pressors. We used the left subclavian site. OPERATORS: 1. Dr. Jackson. 2. Dr. Cooper. There were informed consent and universal time-out. TRIPLE LUMEN CATHETER PLACEMENT: Indication: Hemodynamic monitoring/Intravenous access. A time-out was completed verifying correct patient, procedure, site, positioning, and implant(s) or special equipment if applicable. The patient was placed in a dependent position appropriate for triple lumen catheter placement based on the vein to be cannulated. The patient's left shoulder was prepped and draped in sterile fashion. 1% lidocaine was used to anesthetize the surrounding skin area. A triple lumen 9F Cordis catheter was introduced into the left subclavian vein using Seldinger technique. The catheter was threaded smoothly over the guide wire, and there was good blood return from all 3 ports. Each lumen of the catheter was evacuated of air and flushed with sterile saline. The catheter was then sutured in place to the skin, and a sterile dressing applied. Perfusion to the extremity distal to the point of catheter insertion was checked and found to be adequate. The patient tolerated the procedure well. There was no immediate complication. A chest x-ray was done. The tip of the catheter was seen at the junction of superior vena cava and right atrium. MMODL / IJN: [id number] /
--- NOTE | 2022-08-14 11:16 | P.PN ---
Subjective Progress Note Date: 08/14/22 Principal diagnosis: Respiratory failure. Acute hypoxic respiratory failure secondary to acute anterior wall ID and ventricular fibrillation cardiac arrest. This is a 57-year-old white male with known history of hypertension, no previous history of documented coronary artery disease. Patient presented to the ER yesterday with acute onset of retrosternal chest pain scale of 8/10. Pain started about 20 minutes prior to arrival to the ER. Upon arrival the patient was noted to be pale and diaphoretic. Pain actually started with the patient was working in the [employer], and he had a brief episode of almost near syncope. He was also complaining of shortness of breath. Patient was found to have acute myocardial infarction, underwent cardiac catheterization and he was noted to have subtotally occluded proximal LAD. He underwent angioplasty and stenting. Patient actually had successful stenting of the proximal LAD and successful placement of M Ansley catheter for hemodynamic support because during his cardiac catheterization, patient had episodes of ventricular fibrillation and tachycardia requiring CPR and multiple cardioversions. Patient was intubated by anesthesia while in the catheterization lab. Patient was found to have also chronically occluded mid RCA and elevated left ventricular end- diastolic pressure patient was transferred to the ICU on mechanical ventilation, and I was asked to see him on consultation. Patient is now on assist control r ate of 20, volume 450 FiO2 40% and PEEP of 5. ABG showed a pO2 of 197 pCO2 45 pH of 7.34 and this was on 70% FiO2. Patient is on propofol at 40 mcg/kg/m he was on 1 mg of Versed which I have discontinued his also on Nimbex at 2 mcg/kg/m norepinephrine at 0.04 mcg/kg/m amiodarone 0.5 mg/m. Patient was on bicarb drip at 50 mL per hour and I cut it down to 25 mL per hour. Patient was also noted t o have acute hyperkalemia and acute kidney injury that seems to be progressively getting worse as I recommended nephrology consultation. Patient is noted to have coffee ground material in the nasogastric tube and he had bloody urine. Heparin was briefly placed on hold by cardiology already. And I am Ansley device is being addressed by cardiology today. WBC count is 17.5 hemoglobin is 13.8 PTT is 46.3. Fibrinogen 357, potassium 5.9 bicarb is up to 28 BUN is 30 creatinine 2.19 LDH is 2620 calcium is 7.0 chest x-ray this morning showed mild cardiomegaly and central venous congestion consistent with mild CHF. Echocardiogram on this admission showed ejection fraction of 10% and there is also evidence of mild mitral regurgitation 20, tidal volume 450, FiO2 40%, and PEEP of 5 patient was reevaluated today on 08/13/2022, patient remains in the ICU, intubated and mechanically ventilated. Patient is on assist control rate of 20 tidal volume 450 FiO2 45% and PEEP of 5 ABG showed a pO2 of 108 pCO2 35 pH of 7.47 hence his rate was cut down to 18 and his FiO2 cut down to 40%. the impella was removed by cardiology yesterday, patient is still requiring norepinephrine at 0.12 mcg/kg/m for blood pressure support. Remains on propofol at 50 mcg/kg/m. Patient has very poor minimal urine output and history of functioning is getting much worse. Hence I'm recommending a trial of Lasix 80 mg IV push 1. In the meantime patient will need to be seen by nephrology for his acute kidney injury secondary to hypotension/secondary to acute tubular necrosis. His IV fluids remains at 0.9 /75 mL per hour chest x-ray showed significant improvement in his congestive heart failure. WBC count is 22.9 hemoglobin 13.5. Platelets are 135. Basic metabolic profile and electrolytes are normal however his BUN is up to 54 creatinine is up to 4.35. His initial creatinine on admission was 1.08. Clearly this is consistent with acute kidney injury/acute tubular necrosis. Still concerned about mentation, hence will give the patient a sedation holiday/interruption and assess mental status, if determ ined to have possible anoxic brain injury will likely order a CT of the brain and initiate a neurological consultation Progress note dated 08/14/2022. This is a 57-year-old male who was admitted to the hospital on August 11. He came with chest pain, shortness of breath, and syncope. He is found to have an ST segment elevation myocardial infarction. He went to the catheterization laboratory on August 11, he developed ventricular fibrillation and ventricular tachycardia. He was defibrillated no less than 10 times. He was intubated at that time, and had 2 stents placed to his LAD, and had an Impella device placed. That device was removed the on August 12. He remains on mechanical ventilator, wi th possible anoxic brain injury. He is on by Mrs. snider, rate 18, tidal volume 450, FiO2 60%, and PEEP of 5. Blood gases show pO2 of 99, pCO2 38, and pH is 7.35. That was on 70% FiO2. The patient's on saline at 75 mL an hour, propofol at 65 mcg/kg/m, norepinephrine at 21 mcg/m, vasopressin at 0.03 units per minute, fentanyl at 0.5 mcg/kg/h, and tube feedings with Nepro at 10 mL an hour. White count 22.7, hemoglobin 12, hematocrit 35.6, platelet count 107,000. Sodium 136, potassium 4.7, chlorides 104, CO2 20, anion gap 12, BUN 64, creatinine 7.25. AST is 621 ALT is 344. Microbiology sampling has been negative thus far. Chest x-ray shows some mild pulmonary venous congestion. Left subclavian triple-lumen catheter is in good position. There was no pneumothorax. Objective - Vital Signs Vital signs: Vital Signs Temp 98.4 F 08/14/22 04:00 Pulse 79 08/14/22 10:45 Resp 25 H 08/14/22 10:00 BP 141/111 08/11/22 22:40 Pulse Ox 97 08/14/22 10:45 FiO2 60 08/14/22 10:00 Intake & Output 08/13/22 08/14/22 08/14/22 18:59 06:59 18:59 Intake Total 7148.575 7035.255 516.369 Output Total 105 5 0 Balance 0650.208 2733.255 516.369 Weight 94.6 kg Intake: IV 1053 891 315 Pressure bag 78 66 15 Sodium Chloride 0.9% 1, 975 825 300 000 ml @ 75 mls/hr IV . [id number] LEIGH Rx#:[id number] Intake, IV Titration 584.148 900.255 171.369 Amount Norepinephrine 4 mg In 176.023 Sodium Chloride 0.9% 250 ml @ 0.05 MCG/KG/MIN 15. 554 mls/hr IV .[id number] LEIGH Rx#:[id number] Norepinephrine 8 mg In 153.258 535.941 171.369 Sodium Chloride 0.9% 250 ml @ 0.03 MCG/KG/MIN 5. 317 mls/hr IV .Q24H LEIGH Rx#:[id number] Piperacillin-Tazobactam 3 100 .375 gm In Sodium Chloride 0.9% 100 ml @ 25 mls/hr IVPB Q8HR LEIGH Rx# :[id number] propofoL 1,000 mg In 154.867 364.314 Empty Bag 1 bag @ 15 MCG/ KG/MIN 7.348 mls/hr IV . [id number] LEIGH Rx#:[id number] Tube Feeding 30 Output: Gastric Drainage 100 Urine 5 5 0 Other: Voiding Method Indwelling Catheter Indwelling Catheter # Bowel Movements 1 ABP, PAP, CO, CI - Last Documented Arterial Blood Pressure 88/52 - Exam No acute distress, sedated, with an orally placed endotracheal tube and NG tube. HEENT examination is grossly unremarkable. Neck supple. Full range of motion. No adenopathy thyromegaly or neck vein distention. Left subclavian triple-lumen catheter is noted. Cardiovascular examination reveals regular rhythm rate. S1-S2 normal. No S3 or S4. No discernible murmur noted. Heart rate 79 bpm. Heart sounds are distant. Lungs reveal scattered mild rhonchi. Breath sounds equal. No wheezes. Saturations are 97%. Abdomen soft, without bowel sounds. No masses or tenderness. Extremities are intact. No cyanosis clubbing or edema. Diminished pulses in the right lower extremity. Skin is without rash or lesion. Neurologic examination cannot be adequately assessed at this time. - Labs CBC & Chem 7: 08/14/22 03:24 08/14/22 03:24 Labs: Abnormal Lab Results - Last 24 Hours (Table) 08/13/22 08/13/22 08/13/22 Range/Units 12:59 18:00 23:47 WBC (3.8-10.6) k/uL RBC (4.30-5.90) m/uL Hgb (13.0-17.5) gm/dL Hct (39.0-53.0) % Plt Count (150-450) k/uL Neutrophils # (1.3-7.7) k/uL Monocytes # (0-1.0) k/uL ABG O2 Saturation (94-97) % Sodium (137-145) mmol/L Carbon Dioxide (22-30) mmol/L BUN (9-20) mg/dL Creatinine (0.66-1.25) mg/dL Glucose (74-99) mg/dL POC Glucose (mg/dL) 122 H 130 H 125 H (70-110) mg/dL Calcium (8.4-10.2) mg/dL AST (17-59) U/L ALT (4-49) U/L Total Protein (6.3-8.2) g/dL Albumin (3.5-5.0) g/dL 08/14/22 08/14/22 08/14/22 Range/Units 03:24 03:24 06:10 WBC 22.7 H (3.8-10.6) k/uL RBC 3.74 L (4.30-5.90) m/uL Hgb 12.0 L (13.0-17.5) gm/dL Hct 35.6 L (39.0-53.0) % Plt Count 107 L (150-450) k/uL Neutrophils # 19.4 H (1.3-7.7) k/uL Monocytes # 1.2 H (0-1.0) k/uL ABG O2 Saturation 98.1 H (94-97) % Sodium 136 L (137-145) mmol/L Carbon Dioxide 20 L (22-30) mmol/L BUN 64 H (9-20) mg/dL Creatinine 7.25 H* (0.66-1.25) mg/dL Glucose 130 H (74-99) mg/dL POC Glucose (mg/dL) (70-110) mg/dL Calcium 7.0 L (8.4-10.2) mg/dL AST 621 H (17-59) U/L ALT 344 H (4-49) U/L Total Protein 4.8 L (6.3-8.2) g/dL Albumin 2.6 L (3.5-5.0) g/dL Assessment and Plan Assessment: Acute hypoxemic respiratory failure, secondary to an anterior wall ST segment elevation myocardial infarction, status post stenting of the LAD 2, and placement of a Impella device. Status post intubation mechanical ventilation for respiratory failure, 08/11/2022. Cardiogenic shock. Acute kidney injury secondary to ATN. Ventricular fibrillation arrest, status post multiple defibrillations and amiodarone. Acute metabolic acidosis. Severe systolic dysfunction, with an ejection fraction of 12%. Possible anoxic brain injury. Acute hyperkalemia secondary to acute kidney injury. Plan: Plan dated 08/14/2022. The patient is seen today, in room 252. Patient is being followed by neurology. Labs, x-rays, medications are reviewed. The patient's overall prognosis remains very tenuous. The patient continues to be a full code. A left subclavian triple lumen catheter was placed today. We will continue to follow make recommendations along the way. Prognosis is guarded. Time with Patient: Greater than 30
--- NOTE | 2022-08-14 11:25 | P.PN ---
Subjective Patient is seen for follow-up for acute kidney injury. Patient remains intubated Current maintained on levo fed and vasopressin No urine output FiO2 at 60% Maintained on IV fluids at 75 mL an hour Serum creatinine up to 7.2 today. Objective - Vital Signs Vital signs: Vital Signs Temp 98.4 F 08/14/22 04:00 Pulse 80 08/14/22 11:13 Resp 25 H 08/14/22 10:00 BP 141/111 08/11/22 22:40 Pulse Ox 97 08/14/22 10:45 FiO2 60 08/14/22 11:05 Intake & Output 08/13/22 08/14/22 08/14/22 18:59 06:59 18:59 Intake Total 4500.005 0650.255 516.369 Output Total 105 5 0 Balance 9533.939 8001.255 516.369 Weight 94.6 kg Intake: IV 1053 891 315 Pressure bag 78 66 15 Sodium Chloride 0.9% 1, 975 825 300 000 ml @ 75 mls/hr IV . [id number] LEIGH Rx#:[id number] Intake, IV Titration 584.148 900.255 171.369 Amount Norepinephrine 4 mg In 176.023 Sodium Chloride 0.9% 250 ml @ 0.05 MCG/KG/MIN 15. 554 mls/hr IV .[id number] LEIGH Rx#:[id number] Norepinephrine 8 mg In 153.258 535.941 171.369 Sodium Chloride 0.9% 250 ml @ 0.03 MCG/KG/MIN 5. 317 mls/hr IV .Q24H LEIGH Rx#:[id number] Piperacillin-Tazobactam 3 100 .375 gm In Sodium Chloride 0.9% 100 ml @ 25 mls/hr IVPB Q8HR LEIGH Rx# :[id number] propofoL 1,000 mg In 154.867 364.314 Empty Bag 1 bag @ 15 MCG/ KG/MIN 7.348 mls/hr IV . [id number] LEIGH Rx#:[id number] Tube Feeding 30 Output: Gastric Drainage 100 Urine 5 5 0 Other: Voiding Method Indwelling Catheter Indwelling Catheter # Bowel Movements 1 ABP, PAP, CO, CI - Last Documented Arterial Blood Pressure 88/52 - Exam Patient is sedated and on the vent Examination of the heart S1 and S2 Examination of the lungs bilateral breath sounds are heard Abdomen is soft Examination of lower extremities shows edema trace bilateral, discoloration noted in the right heel - Labs CBC & Chem 7: 08/14/22 03:24 08/14/22 03:24 Labs: Abnormal Lab Results - Last 24 Hours (Table) 08/13/22 08/13/22 08/13/22 Range/Units 12:59 18:00 23:47 WBC (3.8-10.6) k/uL RBC (4.30-5.90) m/uL Hgb (13.0-17.5) gm/dL Hct (39.0-53.0) % Plt Count (150-450) k/uL Neutrophils # (1.3-7.7) k/uL Monocytes # (0-1.0) k/uL ABG O2 Saturation (94-97) % Sodium (137-145) mmol/L Carbon Dioxide (22-30) mmol/L BUN (9-20) mg/dL Creatinine (0.66-1.25) mg/dL Glucose (74-99) mg/dL POC Glucose (mg/dL) 122 H 130 H 125 H (70-110) mg/dL Calcium (8.4-10.2) mg/dL AST (17-59) U/L ALT (4-49) U/L Total Protein (6.3-8.2) g/dL Albumin (3.5-5.0) g/dL 08/14/22 08/14/22 08/14/22 Range/Units 03:24 03:24 06:10 WBC 22.7 H (3.8-10.6) k/uL RBC 3.74 L (4.30-5.90) m/uL Hgb 12.0 L (13.0-17.5) gm/dL Hct 35.6 L (39.0-53.0) % Plt Count 107 L (150-450) k/uL Neutrophils # 19.4 H (1.3-7.7) k/uL Monocytes # 1.2 H (0-1.0) k/uL ABG O2 Saturation 98.1 H (94-97) % Sodium 136 L (137-145) mmol/L Carbon Dioxide 20 L (22-30) mmol/L BUN 64 H (9-20) mg/dL Creatinine 7.25 H* (0.66-1.25) mg/dL Glucose 130 H (74-99) mg/dL POC Glucose (mg/dL) (70-110) mg/dL Calcium 7.0 L (8.4-10.2) mg/dL AST 621 H (17-59) U/L ALT 344 H (4-49) U/L Total Protein 4.8 L (6.3-8.2) g/dL Albumin 2.6 L (3.5-5.0) g/dL Assessment and Plan Assessment: 1. Acute kidney injury secondary to ATN secondary to cardiac arrest. Also received IV contrast on 08/11/2022 for cardiac catheterization. Baseline creatinine near 1 and is up at 4.35 today. Oliguric. No hydronephrosis noted on kidney ultrasound. 2. Acute OH status post cardiac catheterization with LAD stent placement. Impella removed 08/12/2022. 3. V. fib arrest s/p amiodarone drip. Cardiology following. 4. Hyperkalemia secondary to acute kidney injury. It was also hemolyzed sample. Potassium level 4.0 today. 5. Metabolic acidosis secondary to acute kidney injury status post bicarb drip. Improved. 6. Severe systolic dysfunction with ejection fraction of 12%. Plan: Proceed with vascular surgery consult and dialysis catheter placement. We will plan for first treatment of hemodialysis today. Overall prognosis is guarded given the significantly low blood pressures.
[2022-08-14] MEDS ORDERED: HEPARIN SODIUM 1,000 UN/ML (10ML VL) MISCELLANE ONE (11:32)
[2022-08-14] MEDS: methylPREDNISolone SOD SUCCI 125 MG/2 ML VIAL IV SCH ×3 (11:47→23:38)
--- NOTE | 2022-08-14 12:17 | P.PN ---
Subjective Progress Note Date: 08/14/22 I'm seeing the patient for the first time during this admission. Please refer to Dr. Chao's note for further details. Per ICU nurse patient is on IV propofol 65nxf/kg/min and fentanyl 0.5mcg/kg/hr. Is also in IV NE and vasopressin. Patient creatinine is trending up and that the plan is a 20 patient dad to receive dialysis. The patient has right leg that is cold to touch and no pulses detected. Objective - Vital Signs Vital signs: Vital Signs Temp 98.4 F 08/14/22 04:00 Pulse 79 08/14/22 11:30 Resp 26 H 08/14/22 11:15 BP 141/111 08/11/22 22:40 Pulse Ox 97 08/14/22 11:30 FiO2 60 08/14/22 11:05 Intake & Output 08/13/22 08/14/22 08/14/22 18:59 06:59 18:59 Intake Total 5358.511 5726.255 686.548 Output Total 105 5 0 Balance 2451.301 1078.255 686.548 Weight 94.6 kg 94.6 kg Intake: IV 1053 891 393 Pressure bag 78 66 18 Sodium Chloride 0.9% 1, 975 825 375 000 ml @ 75 mls/hr IV . [id number] LEIGH Rx#:[id number] Intake, IV Titration 584.148 900.255 253.548 Amount Norepinephrine 4 mg In 176.023 Sodium Chloride 0.9% 250 ml @ 0.05 MCG/KG/MIN 15. 554 mls/hr IV .[id number] LEIGH Rx#:[id number] Norepinephrine 8 mg In 153.258 535.941 171.369 Sodium Chloride 0.9% 250 ml @ 0.03 MCG/KG/MIN 5. 317 mls/hr IV .Q24H LEIGH Rx#:[id number] Piperacillin-Tazobactam 3 100 .375 gm In Sodium Chloride 0.9% 100 ml @ 25 mls/hr IVPB Q8HR LEIGH Rx# :[id number] propofoL 1,000 mg In 154.867 364.314 82.179 Empty Bag 1 bag @ 15 MCG/ KG/MIN 7.348 mls/hr IV . [id number] LEIGH Rx#:[id number] Tube Feeding 40 Output: Gastric Drainage 100 Urine 5 5 0 Other: Voiding Method Indwelling Catheter Indwelling Catheter # Bowel Movements 1 ABP, PAP, CO, CI - Last Documented Arterial Blood Pressure 91/54 - Exam GENERAL: The patient is lying in bed and does not appear in acute distress. NEUROLOGICAL: Limited because of condition and sedation (IV propofol 65nxf/kg/min and fentanyl 0.5mcg/kg/hr). Higher mental function: Is comatose GCS 3 ( E1, VT1, M1). Cranial nerves: The pupils are pinpoint and hard to appreciate light reactivity. +ve coreneal reflex over the right. Has intact weak gag reflex. Is breathing over the vent (AC set at 22 and is breathing 25). Otherwise no occulocephalic reflex. No facial weakness. Motor: The strength is hard to assess but no movement noted. No spontaneous movement. Normal bulk. Decrease tone mildly throughout. Cerebellum: Unable to assess. Sensation: Unable to assess light touch but no withdrawal or grimaces to painful stimuli. - Labs CBC & Chem 7: 08/14/22 03:24 08/14/22 03:24 Labs: Abnormal Lab Results - Last 24 Hours (Table) 08/13/22 08/13/22 08/13/22 Range/Units 12:59 18:00 23:47 WBC (3.8-10.6) k/uL RBC (4.30-5.90) m/uL Hgb (13.0-17.5) gm/dL Hct (39.0-53.0) % Plt Count (150-450) k/uL Neutrophils # (1.3-7.7) k/uL Monocytes # (0-1.0) k/uL ABG O2 Saturation (94-97) % Sodium (137-145) mmol/L Carbon Dioxide (22-30) mmol/L BUN (9-20) mg/dL Creatinine (0.66-1.25) mg/dL Glucose (74-99) mg/dL POC Glucose (mg/dL) 122 H 130 H 125 H (70-110) mg/dL Calcium (8.4-10.2) mg/dL AST (17-59) U/L ALT (4-49) U/L Total Protein (6.3-8.2) g/dL Albumin (3.5-5.0) g/dL 08/14/22 08/14/22 08/14/22 Range/Units 03:24 03:24 06:10 WBC 22.7 H (3.8-10.6) k/uL RBC 3.74 L (4.30-5.90) m/uL Hgb 12.0 L (13.0-17.5) gm/dL Hct 35.6 L (39.0-53.0) % Plt Count 107 L (150-450) k/uL Neutrophils # 19.4 H (1.3-7.7) k/uL Monocytes # 1.2 H (0-1.0) k/uL ABG O2 Saturation 98.1 H (94-97) % Sodium 136 L (137-145) mmol/L Carbon Dioxide 20 L (22-30) mmol/L BUN 64 H (9-20) mg/dL Creatinine 7.25 H* (0.66-1.25) mg/dL Glucose 130 H (74-99) mg/dL POC Glucose (mg/dL) (70-110) mg/dL Calcium 7.0 L (8.4-10.2) mg/dL AST 621 H (17-59) U/L ALT 344 H (4-49) U/L Total Protein 4.8 L (6.3-8.2) g/dL Albumin 2.6 L (3.5-5.0) g/dL Assessment and Plan Assessment: * 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 * Acute STEMI, status post cardiac cath and cardiac stenting * Acute kidney injury due to cardiac arrest, nephrology following * Ventilator-dependent respiratory failure, on mechanical ventilation. * High fever, possible pneumonia. * Likely right ischemic limb * Hypertension * Tobacco use * Previous history of alcoholism * Obesity Plan: * CT head showed no acute intracranial process. * EEG: It is reported as background slowing and disorganization suggestive of encephalopathy of moderate to severe degree. Presence of intermittent high amplitude, rhythmic frontally predominant delta slowing was seen with sporadic, multi focal, sharply contoured wave. This may suggest underlying convulsive tendencies. Suggest prolonged EEG for further evaluation. * Currently the patient is on Keppra 500 mg IV daily started by Dr. Chao. Attempt to repeat an EEG tomorrow since availability for today. * CTA of the neck from 05/21/2019 showed no stenosis. * Patient has a T-max of 101.5. Currently not on antibiotics. Will defer to critical care, for any need for antibiotic, possible aspiration. * 2-D echo revealed severe left-ventricular systolic dysfunction secondary to extensive myocardial infarction in LAD distribution. EF is not mentioned. Impella catheter in LVOT. Mild MR, dilated right ventricle, mild left atrial dilation. * Continue aspirin, Lipitor and Effient. * Nephrology is on board and possible dialysis. Patient condition is critical. I discussed with the patient's nurse. Time with Patient: Less than 30
--- NOTE | 2022-08-14 12:28 | CDI ---
Documentation Clarification Form Date: 08/14/2022 12:01:51 PM From: Vandana Montgomery RN, CCDS Email: [email or web address] Admit Date: 08/11/2022 7:28:00 PM Patient Name: Nathaniel Rome Visit Number: [id number] Discharge Date: ATTENTION: The Clinical Documentation Specialists (CDI) and [facility] Coding Staff appreciate your assistance in clarifying documentation. Please respond to the clarification below the line at the bottom and electronically sign. The CDI & [facility] Coding staff will review the response and follow-up if needed. Please note: Queries are made part of the Legal Health Record. If you have any questions, please contact the author of this message via ITS. Dr. Dayday Kong Ventricular fibrillation and ventricular tachycardia is documented in the procedure note/progress notes and patient had a cardiac catheterization with PTCA and placement of Impella catheter. Additional clarification is requested regarding the relationship, if any, that exists between the diagnosis and the procedure. Patients Admitting Diagnosis: Myocardial infarction Post-Operative Diagnosis: Myocardial infarction, sub totally occluded proximal LAD Procedure performed: Successful stenting of the proximal LAD with reduction of stenosis from 99% with large amount of thrombus to less than 5%. Successful placement of Impella catheter for hemodynamic support. History/Risk Factors: HTN. Presented to ED with CP, diaphoretic and hypotensive. The patient seemed to be in cardiogenic shock related to the anterior wall myocardial infarction. Clinical Indicators: 08/11 Procedure: "a 4.0 x 23 mm Xience yael point stent was deployed. It was dilated at 16. Following that the patient had recurrent episode of ventricular tachycardia and ventricular fibrillation requiring CPR and multiple cardioversion. The patient was intubated electively by anesthesia." BP during cath: 60/40. 08/11 Procedure log: patient in V fib, shocked at 200j multiple times, epi given, CPR started. Code blue called. Multiple shocks given from time of code blue being called. Patient intubated. Impella placement verified by fluoroscopy. Treatment: shocked, CPR, Impella placement, cardioversion, Amiodarone drip 08/11- 08/13. Levophed titrated 08/11 to current. What relationship, if any, exists between the diagnosis of Ventricular Fibrillation and Ventricular Tachycardia and the procedure: [ ] Ventricular fibrillation/Ventricular tachycardia is a complication of surgical procedure [ ] Ventricular fibrillation/Ventricular tachycardia is an expected outcome of the surgical procedure [ ] Ventricular fibrillation/Ventricular tachycardia is related to patients co-morbid conditions & not a complication of the procedure [ ] Other please specify ____ [ ] Unable to determine Question for Impella placer MTDD
[2022-08-14] MEDS: PIPERACILLIN-TAZOBACTAM 3.375 GM in SODIUM CHLORIDE 0.9% 100 ML IVPB SCH ×2 (12:59→23:37)
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
--- NOTE | 2022-08-14 13:15 | P.PCN ---
Description of Procedure: Preoperative diagnoses is acute renal failure Postoperative same Procedure ultrasound-guided 20 same dialysis catheter placed right jugular approach Procedure patient was seen and discussed care unit Gladys of the neck was prepped and draped applied sterile manner 1% lidocaine for infected neck area. Ultrasound-guided micropuncture introduced to the right jugular vein micropuncture guidewire was passed. Then placed a 4-[place] sheath on the top of guidewire. Through the sheath we did use guidewire then advanced that dilator o n the top the guidewire. Then we placed 20 same dialysis catheter. The guidewire guidewire was removed flushed with heparin saline and Hep-Lock secured with 3-0 nylon dressing applied patient for the procedure well plan is excision of the chest and patient can be dialyzed
[2022-08-14 13:17] LABS: Glucose,Whole Blood 176 mg/dL (70-110)
--- NOTE | 2022-08-14 13:35 | CA ---
Transthoracic Echo Report Name: Nathaniel Rome Age: 57 Gender: M : 1965 Exam Date: 08/14/2022 07:32 Exam Location: [place] [facility] Ht (in): 68 Wt (lb): 208 Ordering Physician: Dayday Kong MD ([id number]) Attending/Referring Phys: Dilan MOHAMUD [employer] Calvin Santos Procedure CPT: Indications: CMP Cardiac Hx: Technical Quality: Fair Contrast 1: Total Dose (mL): Contrast 2: Total Dose (mL): MEASUREMENTS (Male / Female) Normal Values 2D ECHO LV Diastolic Diameter PLAX 2.8 cm 4.2 - 5.9 / 3.9 - 5.3 cm IVS Diastolic Thickness 1.2 cm 0.6 - 1.0 / 0.6 - 0.9 cm LVPW Diastolic Thickness 2.7 cm 0.6 - 1.0 / 0.6 - 0.9 cm LV Relative Wall Thickness 1.4 RV Internal Dim ED PLAX 2.7 cm LV Diastolic Volume MOD BP 64.8 cm??? 67 - 155 / 56 - 104 cm??? LV Systolic Volume MOD BP 29.1 cm??? 22 - 58 / 19 - 49 cm??? LV Ejection Fraction MOD BP 55.1 % >= 55 % LV Diastolic Volume MOD 4C 65.1 cm??? LV Systolic Volume MOD 4C 33.8 cm??? LV Ejection Fraction MOD 4C 48.1 % LV Diastolic Length 4C 6.8 cm LV Systolic Length 4C 6.4 cm LV Diastolic Volume MOD 2C 64.5 cm??? LV Systolic Volume MOD 2C 23.1 cm??? LV Ejection Fraction MOD 2C 64.1 % LV Diastolic Length 2C 6.8 cm LV Systolic Length 2C 5.8 cm DOPPLER AV Peak Velocity 101.4 cm/s AV Peak Gradient 4.1 mmHg LVOT Peak Velocity 102.2 cm/s LVOT Peak Gradient 4.2 mmHg MR Peak Velocity 280.6 cm/s MR Peak Gradient 31.5 mmHg Mitral E Point Velocity 111.7 cm/s Mitral A Point Velocity 34.2 cm/s Mitral E to A Ratio 3.3 MV Deceleration Time 142.5 ms MV E' Velocity 5.8 cm/s Mitral E to MV E' Ratio 19.1 TR Peak Velocity 270.0 cm/s TR Peak Gradient 29.2 mmHg Right Ventricular Systolic Press 34.4 mmHg PV Peak Velocity 73.2 cm/s PV Peak Gradient 2.1 mmHg FINDINGS Left Ventricle Apical Thrombosis. Left ventricular ejection fraction is estimated at 20-25% . Right Ventricle Normal right ventricular size and function. Right Atrium Normal right atrial size. Left Atrium LA Volume Index= 31.9 ml/m2 Mitral Valve Structurally normal mitral valve. Mild mitral regurgitation. Aortic Valve AV Grossly normal.no aortic valve stenosis or regurgitation. Tricuspid Valve Structurally normal tricuspid valve. Trace tricuspid regurgitation. Pulmonic Valve Pulmonic valve not well visualized. Mild pulmonic regurgitation. Pericardium Normal pericardium. Aorta Normal size aortic root and proximal ascending aorta. CONCLUSIONS Severe LV dysfunction large anteroapical akinesis Ejection fraction less than 25% Previewed by: Dr. Prasanna Holt MD (Electronically Signed) Final Date: 14 Aug 2022 13:34
--- NOTE | 2022-08-14 13:47 | XR ---
EXAMINATION TYPE: XR chest 1V portable DATE OF EXAM: 08/14/2022 Comparison: 08/14/2022 Clinical History: 57-year-old male s/p placement of right upper chest hd catheter. Findings: Right-sided hemodialysis catheter with tips at the upper right atrium. Left CVC tip also near the upp er right atrium. NG tube courses below the diaphragm. Heart mildly enlarged. Diffuse interstitial pro minence persists. Some mild patchy left basilar and left perihilar opacity also persist. No pneumotho rax. No sizable pleural effusion. Impression: 1. Right-sided hemodialysis catheter tip in the upper right atrium. 2. Pulmonary vascular congestion. 3. Similar patchy left basilar atelectasis, possible trace effusion.
[2022-08-14] MEDS ORDERED: HEPARIN SODIUM 1,000 UN/ML (10ML VL) IV PRN (15:01)
[2022-08-14] MEDS: HEPARIN SOD,PORK IN 0.45% NACL 25,000 UNIT in 0.45% NACL 1 250ML.BAG IV SCH (15:10)
[2022-08-14 16:21] LABS: INR 0.9 (<1.2); Partial Thromboplastin Time 26.7 sec (22.0-30.0)
[2022-08-14 19:02] LABS: Glucose,Whole Blood 200 mg/dL (70-110)
[2022-08-14] MEDS: BUDESONIDE 1 MG/2 ML NEBU INHALATION SCH (20:25)
[2022-08-14] MEDS: FORMOTEROL FUMARATE 20 MCG/2 ML NEBU INHALATION SCH (20:25)
[2022-08-14] MEDS: SODIUM CHLORIDE 0.9% 80 ML with fentaNYL (PF) 1,000 MCG IV SCH ×2 (20:32)
[2022-08-14 20:40] LABS: Hepatitis B Surface Antigen Nonreactive (Nonreactive)
[2022-08-14 20:43] LABS: Hepatitis B Surface AB- Quant 3.5 mIU/mL; Hepatitis B Surface Antibody Nonreactive (Nonreactive)
[2022-08-14] MEDS: ATORVASTATIN 80 MG TAB PO SCH (20:55)
[2022-08-14] MEDS ORDERED: HEPARIN SODIUM,PORCINE/PF 5,000 UNIT/0.5 ML SYRINGE SQ SCH (21:00)
--- NOTE | 2022-08-14 21:46 | PN ---
PROGRESS NOTE DATE OF SERVICE: 08/12/2022 CHIEF COMPLAINT: Acute myocardial infarction with cardiogenic shock. HISTORY OF PRESENT ILLNESS: This gentleman remains unstable. Still on pressors. Blood pressure is low. He is not making urine. PHYSICAL EXAMINATION: VASCULAR: Peripheral perfusion is minimal. Feet are cool. CHEST: Demonstrates clear breath sounds on the ventilator. CARDIAC: Normal sinus. ABDOMEN: Soft with no masses. IMPRESSION: 1. Acute anterior ST-elevation myocardial infarction. 2. Cardiogenic shock. 3. Oliguric renal failure. 4. History of hypertension. 5. History of hyperlipidemia. PLAN: No change in management at this time. MMODL / IJN: [id number] /
[2022-08-14 23:33] LABS: Glucose,Whole Blood 192 mg/dL (70-110)
[2022-08-15] MEDS: IPRATROPIUM-ALBUTEROL 3 ML NEB INHALATION SCH ×6 (00:23→20:16)
[2022-08-15] MEDS: VASOPRESSIN 60 UNIT in SODIUM CHLORIDE 0.9% 150 ML IV SCH ×2 (02:03→23:43)
[2022-08-15] MEDS: SODIUM CHLORIDE 0.9% 1,000 ML IV SCH (03:53)
--- NOTE | 2022-08-15 04:23 | PN ---
PROGRESS NOTE DATE OF SERVICE: 08/14/2022 CHIEF COMPLAINT: Acute STEMI with cardiogenic shock. HISTORY OF PRESENT ILLNESS: This gentleman is about the same. His vital signs are normal, but he is still on the ventilator. He is not making any urine. He is going to be dialyzed. PHYSICAL EXAMINATION: VITAL SIGNS: Blood pressure is 123/71 with a pulse of 82 and sinus. CHEST: Breath sounds are heard bilaterally. CARDIAC: Normal. ABDOMEN: Soft. EXTREMITIES: Cool. IMPRESSION: 1. Acute ST-elevation myocardial infarction. 2. Acute occlusion of the left anterior descending. 3. Coronary artery disease. 4. Cardiogenic shock. 5. Acute kidney injury. PLAN: No change in his management at this time from my perspective. MMODL / IJN: [id number] /
[2022-08-15 04:55] LABS: Basophils % (A) 0 %; Eosinophils # (A) 0.1 k/uL (0-0.7); Eosinophils % (A) 0 %; HGB 10.7 gm/dL (13.0-17.5); Lymphocytes # (A) 0.8 k/uL (1.0-4.8); Lymphocytes % (A) 5 %; MCH 31.2 pg (25.0-35.0); MCHC 33.6 g/dL (31.0-37.0); MCV 93.1 fL (80.0-100.0); Mean Platelet Volume 10.5; Monocytes # (A) 0.6 k/uL (0-1.0); Monocytes % (A) 3 %; Neutrophils # (A) 15.1 k/uL (1.3-7.7); Neutrophils % (A) 91 %; Platelet Count 111 k/uL (150-450); RBC 3.44 m/uL (4.30-5.90); RDW 13.8 % (11.5-15.5); WBC 16.6 k/uL (3.8-10.6)
[2022-08-15 05:02] LABS: Calcium 7.4 mg/dL (8.4-10.2)
[2022-08-15 05:05] LABS: Partial Thromboplastin Time 61.7 sec (22.0-30.0); Prothrombin Time 10.1 sec (9.0-12.0)
[2022-08-15 05:34] LABS: ABG HCO3 22 mmol/L (21-25); ABG Oxygen Saturation 97.8 % (94-97); ABG PCO2 34 mmHg (35-45); ABG PH 7.41 (7.35-7.45); ABG PO2 98 mmHg (83-108); ABG TCO2 23 mmol/L (19-24); Allen Test Performed? Yes
[2022-08-15 05:45] LABS: Glucose,Whole Blood 182 mg/dL (70-110)
[2022-08-15] MEDS: methylPREDNISolone SOD SUCCI 125 MG/2 ML VIAL IV SCH ×4 (05:50→23:35)
[2022-08-15] MEDS: INSULIN ASPART (NovoLOG) 100 UNIT/ML VIAL SQ SCH ×3 (05:50→17:53)
--- NOTE | 2022-08-15 06:17 | PN ---
PROGRESS NOTE DATE OF SERVICE: 08/13/2022 CHIEF COMPLAINT: Acute STEMI with cardiogenic shock and renal failure. HISTORY OF PRESENT ILLNESS: This patient's condition is essentially the same. He is still on pressors. He is making no urine. He is not alert. PHYSICAL EXAMINATION: LUNGS: Breath sounds are heard bilaterally. VITAL SIGNS: Systolic blood pressure is 98. CARDIAC: Sinus. ABDOMEN: Soft. EXTREMITIES: Cool. : There is no urine in the drainage bag. IMPRESSION: 1. Acute ST elevation myocardial infarction with cardiogenic shock. 2. Acute tubular necrosis with oliguria. PLAN: Continue to follow with Cardiology and Nephrology. MMODL / IJN: [id number] /
--- NOTE | 2022-08-15 06:56 | XR ---
EXAMINATION TYPE: XR chest 1V portable DATE OF EXAM: 08/15/2022 Comparison: 08/14/2022 Clinical History: 57-year-old male Tube placement Findings: ET and NG tube are satisfactory. Right-sided hemodialysis catheter tip in the upper right atrium. Lef t subclavian CVC tip near the upper right atrium as well. Heart mildly enlarged. Continued interstiti al and hazy densities in the lungs. Some increasing retrocardiac and left basilar opacity. Perihilar density is increasing. Impression: Worsening hazy and interstitial densities, suspect developing interstitial pulmonary edema.
[2022-08-15] MEDS: FORMOTEROL FUMARATE 20 MCG/2 ML NEBU INHALATION SCH ×2 (07:30→20:16)
[2022-08-15] MEDS: BUDESONIDE 1 MG/2 ML NEBU INHALATION SCH ×2 (07:30→20:16)
[2022-08-15] MEDS: NOREPINEPHRINE 8 MG in SODIUM CHLORIDE 0.9% 250 ML IV SCH (07:45)
--- NOTE | 2022-08-15 07:52 | HP ---
HISTORY AND PHYSICAL CHIEF COMPLAINT: Chest pain. HISTORY OF PRESENT ILLNESS: This is a first known [facility] admission for this 57-year-old white male. He has been coming to the office for treatment of depression, hypertension, and hyperlipidemia. He is not compliant. He only takes lisinopril when his blood pressure is high. He does not take the atorvastatin. MEDICATIONS: Medications he was getting as outpatient were: 1. Meclizine. 2. Colchicine. 3. Zantac. 4. Vitamin D. 5. [place] 7.5. ALLERGIES: He is not allergic to any medication. SOCIAL HISTORY: He has a history of smoking, but states he does not drink. When he was in the office last, his vital signs are normal. He apparently presented to the emergency room with chest pain and was taken straight to the catheterization lab. PHYSICAL EXAMINATION: HEAD, EARS, EYES, AND NOSE: Normal. He is intubated. LUNGS: Breath sounds are heard bilaterally. CARDIAC: Demonstrates sinus rhythm. ABDOMEN: Soft. There are no masses. EXTREMITIES: Normal. IMPRESSION: Acute ST-elevation myocardial infarction with cardiogenic shock. PLAN: ICU management and follow with Intensive Medicine and Cardiology. Prognosis is poor. MMODL / IJN: [id number] /
[2022-08-15] MEDS: ASPIRIN 81 MG PO SCH (08:06)
[2022-08-15] MEDS: CHLORHEXIDINE GLUCONATE 15 ML CUP MUCOUS MEM SCH ×2 (08:06→21:52)
[2022-08-15] MEDS: METOPROLOL TARTRATE 25 MG TAB PO SCH ×2 (08:07→22:27)
[2022-08-15] MEDS: levETIRAcetam IV 500 MG/5 ML VIAL IVP SCH (08:07)
[2022-08-15] MEDS: PANTOPRAZOLE 40 MG/10 ML VIAL IV SCH (08:07)
[2022-08-15] MEDS: PRASUGREL 10 MG TAB PO SCH (08:07)
--- NOTE | 2022-08-15 10:04 | P.PN ---
Subjective Progress Note Date: 08/08/22 Principal diagnosis: Respiratory failure. Acute hypoxic respiratory failure secondary to acute anterior wall AR and ventricular fibrillation cardiac arrest. This is a 57-year-old white male with known history of hypertension, no previous history of documented coronary artery disease. Patient presented to the ER yesterday with acute onset of retrosternal chest pain scale of 8/10. Pain started about 20 minutes prior to arrival to the ER. Upon arrival the patient was noted to be pale and diaphoretic. Pain actually started with the patient was working in the [employer], and he had a brief episode of almost near syncope. He was also complaining of shortness of breath. Patient was found to have acute myocardial infarction, underwent cardiac catheterization and he was noted to have subtotally occluded proximal LAD. He underwent angioplasty and stenting. Patient actually had successful stenting of the proximal LAD and successful placement of M [place] catheter for hemodynamic support because during his cardiac catheterization, patient had episodes of ventricular fibrillation and tachycardia requiring CPR and multiple cardioversions. Patient was intubated by anesthesia while in the catheterization lab. Patient was found to have also chronically occluded mid RCA and elevated left ventricular end- diastolic pressure patient was transferred to the ICU on mechanical ventilation, and I was asked to see him on consultation. Patient is now on assist control r ate of 20, volume 450 FiO2 40% and PEEP of 5. ABG showed a pO2 of 197 pCO2 45 pH of 7.34 and this was on 70% FiO2. Patient is on propofol at 40 mcg/kg/m he was on 1 mg of Versed which I have discontinued his also on Nimbex at 2 mcg/kg/m norepinephrine at 0.04 mcg/kg/m amiodarone 0.5 mg/m. Patient was on bicarb drip at 50 mL per hour and I cut it down to 25 mL per hour. Patient was also noted t o have acute hyperkalemia and acute kidney injury that seems to be progressively getting worse as I recommended nephrology consultation. Patient is noted to have coffee ground material in the nasogastric tube and he had bloody urine. Heparin was briefly placed on hold by cardiology already. And I am [place] device is being addressed by cardiology today. WBC count is 17.5 hemoglobin is 13.8 PTT is 46.3. Fibrinogen 357, potassium 5.9 bicarb is up to 28 BUN is 30 creatinine 2.19 LDH is 2620 calcium is 7.0 chest x-ray this morning showed mild cardiomegaly and central venous congestion consistent with mild CHF. Echocardiogram on this admission showed ejection fraction of 10% and there is also evidence of mild mitral regurgitation 20, tidal volume 450, FiO2 40%, and PEEP of 5 patient was reevaluated today on 08/13/2022, patient remains in the ICU, intubated and mechanically ventilated. Patient is on assist control rate of 20 tidal volume 450 FiO2 45% and PEEP of 5 ABG showed a pO2 of 108 pCO2 35 pH of 7.47 hence his rate was cut down to 18 and his FiO2 cut down to 40%. the impella was removed by cardiology yesterday, patient is still requiring norepinephrine at 0.12 mcg/kg/m for blood pressure support. Remains on propofol at 50 mcg/kg/m. Patient has very poor minimal urine output and history of functioning is getting much worse. Hence I'm recommending a trial of Lasix 80 mg IV push 1. In the meantime patient will need to be seen by nephrology for his acute kidney injury secondary to hypotension/secondary to acute tubular necrosis. His IV fluids remains at 0.9 /75 mL per hour chest x-ray showed significant improvement in his congestive heart failure. WBC count is 22.9 hemoglobin 13.5. Platelets are 135. Basic metabolic profile and electrolytes are normal however his BUN is up to 54 creatinine is up to 4.35. His initial creatinine on admission was 1.08. Clearly this is consistent with acute kidney injury/acute tubular necrosis. Still concerned about mentation, hence will give the patient a sedation holiday/interruption and assess mental status, if determ ined to have possible anoxic brain injury will likely order a CT of the brain and initiate a neurological consultation Progress note dated 08/14/2022. This is a 57-year-old male who was admitted to the hospital on August 11. He came with chest pain, shortness of breath, and syncope. He is found to have an ST segment elevation myocardial infarction. He went to the catheterization laboratory on August 11, he developed ventricular fibrillation and ventricular tachycardia. He was defibrillated no less than 10 times. He was intubated at that time, and had 2 stents placed to his LAD, and had an Impella device placed. That device was removed the on August 12. He remains on mechanical ventilator, wi th possible anoxic brain injury. He is on by [place] snider, rate 18, tidal volume 450, FiO2 60%, and PEEP of 5. Blood gases show pO2 of 99, pCO2 38, and pH is 7.35. That was on 70% FiO2. The patient's on saline at 75 mL an hour, propofol at 65 mcg/kg/m, norepinephrine at 21 mcg/m, vasopressin at 0.03 units per minute, fentanyl at 0.5 mcg/kg/h, and tube feedings with Nepro at 10 mL an hour. White count 22.7, hemoglobin 12, hematocrit 35.6, platelet count 107,000. Sodium 136, potassium 4.7, chlorides 104, CO2 20, anion gap 12, BUN 64, creatinine 7.25. AST is 621 ALT is 344. Microbiology sampling has been negative thus far. Chest x-ray shows some mild pulmonary venous congestion. Left subclavian triple-lumen catheter is in good position. There was no pneumothorax. Progress note dated 08/15/2022. 57-year-old male was admitted to the hospital on August 11. He came in with chest pain, shortness of breath, and syncope. He was found to have an ST segment elevation myocardial infarction. He went to the catheterization laboratory on August 11, developed ventricular fibrillation and ventricular tachycardia. He was defibrillated multiple times, maybe 10 or so. He was also intubated at the same time, and had 2 stents placed to his LAD, and, an Impella device placed. That device was removed on August 12. The patient remains on mechanical ventilator. His vent settings include assist control, rate 22, tidal volume 450, FiO2 50%, and PEEP of 5. Blood gases show pO2 of 98, CO2 34, pH 7.41. White count 16.6, hemoglobin 10.7, hematocrit 32, and platelet count 111,000. PTT is 62. Sodium 137, potassium 4, chlorides 101, CO2 21, anion gap 15, BUN 52, creatinine 6.68. Chest x-ray is consistent with interstitial edema. Objective - Vital Signs Vital signs: Vital Signs Temp 98.2 F 08/15/22 04:00 Pulse 88 08/15/22 07:58 Resp 18 08/15/22 07:15 BP 112/63 08/14/22 16:53 Pulse Ox 95 08/15/22 07:15 FiO2 50 08/15/22 07:29 Intake & Output 08/14/22 08/15/22 08/15/22 18:59 06:59 18:59 Intake Total 2094.662 1701.393 204.760 Output Total 1300 Balance 427.673 7535.393 204.760 Weight 94.6 kg 97 kg Intake: IV 939 936 78 Pressure bag 39 36 3 Sodium Chloride 0.9% 1, 900 900 75 000 ml @ 75 mls/hr IV . [id number] [facility] Rx#:[id number] Intake, IV Titration 685.662 682.393 126.760 Amount Heparin Sod,Pork in 0.45% 74.993 NaCl 25,000 unit In 0.45 % NaCl 1 250ml.bag @ 10. 57 UNITS/KG/HR 9.999 mls/ hr IV .Q24H [facility] Rx#: [id number] Norepinephrine 8 mg In 441.806 259.472 53.173 Sodium Chloride 0.9% 250 ml @ 0.03 MCG/KG/MIN 5. 317 mls/hr IV .Q24H [facility] Rx#:[id number] Sodium Chloride 0.9% 80 61.677 ml @ 0.5 MCG/KG/HR 4.58 mls/hr IV .[id number] [facility] with fentaNYL (PF) 1,000 mcg Rx#:[id number] Vasopressin 60 unit In 120.64 27.311 Sodium Chloride 0.9% 150 ml @ 0.03 UNITS/MIN 4.59 mls/hr IV .Q24H [facility] Rx#: [id number] propofoL 1,000 mg In 182.179 227.288 46.276 Empty Bag 1 bag @ 15 MCG/ KG/MIN 7.348 mls/hr IV . [id number] [facility] Rx#:[id number] Tube Feeding 110 83 Hemodialysis 300 Other 60 Output: Urine 0 Hemodialysis 1300 Other: Voiding Method Indwelling Catheter Indwelling Catheter # Bowel Movements 1 ABP, PAP, CO, CI - Last Documented Arterial Blood Pressure 105/59 - Exam No acute distress, sedated, with an orally placed endotracheal tube and NG tube. HEENT examination is grossly unremarkable. Neck supple. Full range of motion. No adenopathy thyromegaly or neck vein distention. Left subclavian triple-lumen catheter is noted. Cardiovascular examination reveals regular rhythm rate. S1-S2 normal. No S3 or S4. No discernible murmur noted. Heart rate 88 bpm. Heart sounds are distant. Lungs reveal scattered mild rhonchi. Breath sounds equal. No wheezes. Saturations are 95%. Abdomen soft, without bowel sounds. No masses or tenderness. Extremities are intact. No cyanosis clubbing or edema. Skin is without rash or lesion. Neurologic examination cannot be adequately assessed at this time. - Labs CBC & Chem 7: 08/15/22 04:15 08/15/22 04:15 Labs: Abnormal Lab Results - Last 24 Hours (Table) 08/14/22 08/14/22 08/14/22 Range/Units 13:16 19:00 21:08 WBC (3.8-10.6) k/uL RBC (4.30-5.90) m/uL Hgb (13.0-17.5) gm/dL Hct (39.0-53.0) % Plt Count (150-450) k/uL Neutrophils # (1.3-7.7) k/uL Lymphocytes # (1.0-4.8) k/uL APTT 36.7 H (22.0-30.0) sec ABG pCO2 (35-45) mmHg ABG O2 Saturation (94-97) % Carbon Dioxide (22-30) mmol/L BUN (9-20) mg/dL Creatinine (0.66-1.25) mg/dL Glucose (74-99) mg/dL POC Glucose (mg/dL) 176 H 200 H (70-110) mg/dL Calcium (8.4-10.2) mg/dL 08/14/22 08/15/22 08/15/22 Range/Units 23:31 04:15 04:15 WBC 16.6 H (3.8-10.6) k/uL RBC 3.44 L (4.30-5.90) m/uL Hgb 10.7 L (13.0-17.5) gm/dL Hct 32.0 L (39.0-53.0) % Plt Count 111 L (150-450) k/uL Neutrophils # 15.1 H (1.3-7.7) k/uL Lymphocytes # 0.8 L (1.0-4.8) k/uL APTT 61.7 H (22.0-30.0) sec ABG pCO2 (35-45) mmHg ABG O2 Saturation (94-97) % Carbon Dioxide (22-30) mmol/L BUN (9-20) mg/dL Creatinine (0.66-1.25) mg/dL Glucose (74-99) mg/dL POC Glucose (mg/dL) 192 H (70-110) mg/dL Calcium (8.4-10.2) mg/dL 08/15/22 08/15/22 08/15/22 Range/Units 04:15 05:30 05:43 WBC (3.8-10.6) k/uL RBC (4.30-5.90) m/uL Hgb (13.0-17.5) gm/dL Hct (39.0-53.0) % Plt Count (150-450) k/uL Neutrophils # (1.3-7.7) k/uL Lymphocytes # (1.0-4.8) k/uL APTT (22.0-30.0) sec ABG pCO2 34 L (35-45) mmHg ABG O2 Saturation 97.8 H (94-97) % Carbon Dioxide 21 L (22-30) mmol/L BUN 52 H (9-20) mg/dL Creatinine 6.68 H (0.66-1.25) mg/dL Glucose 173 H (74-99) mg/dL POC Glucose (mg/dL) 182 H (70-110) mg/dL Calcium 7.4 L (8.4-10.2) mg/dL Microbiology - Last 24 Hours (Table) 08/13/22 14:18 Blood Culture - Preliminary Blood 08/13/22 14:14 Blood Culture - Preliminary Blood Assessment and Plan Assessment: Acute hypoxemic respiratory failure, secondary to an anterior wall ST segment elevation myocardial infarction, status post stenting of the LAD 2, and placem ent of a Impella device. Status post intubation mechanical ventilation for respiratory failure, . Cardiogenic shock. Acute kidney injury secondary to ATN, currently receiving intermittent hemodialysis. Ventricular fibrillation arrest, status post multiple defibrillations and amiodarone. Acute metabolic acidosis. Severe systolic dysfunction, with an ejection fraction of 12%. Possible anoxic brain injury. Acute hyperkalemia secondary to acute kidney injury. Plan: Plan dated 08/14/2022. The patient is seen today, in room 252. Patient is being followed by neurology. Labs, x-rays, medications are reviewed. The patient's overall prognosis remains very tenuous. The patient continues to be a full code. A left subclavian triple lumen catheter was placed today. We will continue to follow make recommendations along the way. Prognosis is guarded. Plan dated 08/15/2022. The patient is seen today again in room 252. The patient will receive hemodialysis today. Tube feedings are hold, but will be resumed, with vital high protein at 20 mL an hour. The fentanyl drip has been discontinued. We will attempted daily interruption of sedation today. The patient remains on propofol at 30 mcg/kg/m, norepinephrine at 14 mcg/m, heparin via weightbase protocol, vasopressin at 0.03 units per minute, and saline at 75 mL an hour. The patient may not be ready for a spontaneous breathing trial. We will continue to follow. Labs, x-rays, and medications are all reviewed. Prognosis is certainly guarded. Time with Patient: Greater than 30
--- NOTE | 2022-08-15 11:10 | P.PN ---
Subjective Patient is seen for follow-up for acute kidney injury. Patient remains intubated Pressors have been decreased and patient is off of vasopressin. No urine output Status post first treatment of hemodialysis yesterday. Patient tolerated well. UF 1.3 L. Having EEG performed. Objective - Vital Signs Vital signs: Vital Signs Temp 98.5 F 08/15/22 08:00 Pulse 95 08/15/22 10:15 Resp 22 08/15/22 10:15 BP 112/63 08/14/22 16:53 Pulse Ox 92 L 08/15/22 10:15 FiO2 50 08/15/22 08:00 Intake & Output 08/14/22 08/15/22 08/15/22 18:59 06:59 18:59 Intake Total 2094.662 1701.393 489.233 Output Total 1300 Balance 150.262 2437.393 489.233 Weight 94.6 kg 97 kg Intake: IV 939 936 312 Pressure bag 39 36 12 Sodium Chloride 0.9% 1, 900 900 300 000 ml @ 75 mls/hr IV . [id number] [facility] Rx#:[id number] Intake, IV Titration 685.662 682.393 156.233 Amount Heparin Sod,Pork in 0.45% 74.993 NaCl 25,000 unit In 0.45 % NaCl 1 250ml.bag @ 10. 57 UNITS/KG/HR 9.999 mls/ hr IV .Q24H [facility] Rx#: [id number] Norepinephrine 8 mg In 441.806 259.472 59.377 Sodium Chloride 0.9% 250 ml @ 0.03 MCG/KG/MIN 5. 317 mls/hr IV .Q24H [facility] Rx#:[id number] Sodium Chloride 0.9% 80 61.677 ml @ 0.5 MCG/KG/HR 4.58 mls/hr IV .[id number] [facility] with fentaNYL (PF) 1,000 mcg Rx#:[id number] Vasopressin 60 unit In 120.64 27.311 Sodium Chloride 0.9% 150 ml @ 0.03 UNITS/MIN 4.59 mls/hr IV .Q24H [facility] Rx#: [id number] propofoL 1,000 mg In 182.179 227.288 69.545 Empty Bag 1 bag @ 15 MCG/ KG/MIN 7.348 mls/hr IV . [id number] [facility] Rx#:[id number] Tube Feeding 110 83 21 Hemodialysis 300 Other 60 Output: Urine 0 Hemodialysis 1300 Other: Voiding Method Indwelling Catheter Indwelling Catheter # Bowel Movements 1 ABP, PAP, CO, CI - Last Documented Arterial Blood Pressure 95/55 - Exam Patient is sedated and on the vent Examination of the heart S1 and S2 Examination of the lungs bilateral breath sounds are heard Abdomen is soft Examination of lower extremities shows edema trace bilateral, discoloration noted in the right heel - Labs CBC & Chem 7: 08/15/22 04:15 08/15/22 04:15 Labs: Abnormal Lab Results - Last 24 Hours (Table) 08/14/22 08/14/22 08/14/22 Range/Units 13:16 19:00 21:08 WBC (3.8-10.6) k/uL RBC (4.30-5.90) m/uL Hgb (13.0-17.5) gm/dL Hct (39.0-53.0) % Plt Count (150-450) k/uL Neutrophils # (1.3-7.7) k/uL Lymphocytes # (1.0-4.8) k/uL APTT 36.7 H (22.0-30.0) sec ABG pCO2 (35-45) mmHg ABG O2 Saturation (94-97) % Carbon Dioxide (22-30) mmol/L BUN (9-20) mg/dL Creatinine (0.66-1.25) mg/dL Glucose (74-99) mg/dL POC Glucose (mg/dL) 176 H 200 H (70-110) mg/dL Calcium (8.4-10.2) mg/dL 08/14/22 08/15/22 08/15/22 Range/Units 23:31 04:15 04:15 WBC 16.6 H (3.8-10.6) k/uL RBC 3.44 L (4.30-5.90) m/uL Hgb 10.7 L (13.0-17.5) gm/dL Hct 32.0 L (39.0-53.0) % Plt Count 111 L (150-450) k/uL Neutrophils # 15.1 H (1.3-7.7) k/uL Lymphocytes # 0.8 L (1.0-4.8) k/uL APTT 61.7 H (22.0-30.0) sec ABG pCO2 (35-45) mmHg ABG O2 Saturation (94-97) % Carbon Dioxide (22-30) mmol/L BUN (9-20) mg/dL Creatinine (0.66-1.25) mg/dL Glucose (74-99) mg/dL POC Glucose (mg/dL) 192 H (70-110) mg/dL Calcium (8.4-10.2) mg/dL 08/15/22 08/15/22 08/15/22 Range/Units 04:15 05:30 05:43 WBC (3.8-10.6) k/uL RBC (4.30-5.90) m/uL Hgb (13.0-17.5) gm/dL Hct (39.0-53.0) % Plt Count (150-450) k/uL Neutrophils # (1.3-7.7) k/uL Lymphocytes # (1.0-4.8) k/uL APTT (22.0-30.0) sec ABG pCO2 34 L (35-45) mmHg ABG O2 Saturation 97.8 H (94-97) % Carbon Dioxide 21 L (22-30) mmol/L BUN 52 H (9-20) mg/dL Creatinine 6.68 H (0.66-1.25) mg/dL Glucose 173 H (74-99) mg/dL POC Glucose (mg/dL) 182 H (70-110) mg/dL Calcium 7.4 L (8.4-10.2) mg/dL Microbiology - Last 24 Hours (Table) 08/13/22 14:18 Blood Culture - Preliminary Blood 08/13/22 14:14 Blood Culture - Preliminary Blood Assessment and Plan Assessment: 1. Acute kidney injury secondary to ATN secondary to cardiac arrest. Also received IV contrast on 08/11/2022 for cardiac catheterization. Baseline creatinine near 1. Oliguric. No hydronephrosis noted on kidney ultrasound. Serum creatinine was 7.2 and patient was started on hemodialysis on 08/14/2022. 2. Acute TN status post cardiac catheterization with LAD stent placement. Impella removed 08/12/2022. 3. V. fib arrest s/p amiodarone drip. Cardiology following. 4. Hyperkalemia secondary to acute kidney injury. Improved 5. Metabolic acidosis secondary to acute kidney injury status post bicarb drip. Improved. 6. Severe systolic dysfunction with ejection fraction of 12%. Plan: Repeat hemodialysis today Continue to wean down pressors DC IV fluids
[2022-08-15 11:21] LABS: Glucose,Whole Blood 148 mg/dL (70-110)
--- NOTE | 2022-08-15 11:41 | P.PN ---
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 He was in cardiogenic shock where mechanical support was needed and subsequently the Impella was taken out. August 142021 The patient was seen and evaluated this morning. He is not doing well. Hemodynamically he still requiring vasopressors and currently is on norepinephrine and vasopressin's. He is in acute renal failure. He is not making any urine. He is in sinus mechanism. Beside that he is on dual antiplatelet therapy as well as a statin. From a cardiovascular standpoint of view, we'll continue the current medical regimen. Continue hemodynamic support using vasopressors. The patient might benefit from being transferred into a [facility]. The prognosis is extremely poor August 152022 The patient was seen and evaluated this morning. He continues to be intubated on mechanical ventilation. He continues to be hemodynamically unstable requiring norepinephrine. Vasopressin's has stopped. The right limb acute limb ischemia appears to be slightly better and we were able to obtain a Doppler signal from the anterior tibial and posterior tibial using Doppler. Heparin to be continues. Hemoglobin is stable. He is on dialysis now. Assessment Acute anterior ST elevation myocardial infarction Cardiogenic shock Acute renal failure Acute limb ischemia Plan Continue dual antiplatelet therapy and high intensity statin Continue hemodynamic support Continue IV heparin The patient might benefit from transfer to tertiary center Follow-up with the patient Objective - Vital Signs Vital signs: Vital Signs Temp 98.5 F 08/15/22 08:00 Pulse 94 08/15/22 11:37 Resp 28 H 08/15/22 11:00 BP 112/63 08/14/22 16:53 Pulse Ox 93 L 08/15/22 11:15 FiO2 50 08/15/22 11:18 Intake & Output 08/14/22 08/15/22 08/15/22 18:59 06:59 18:59 Intake Total 2094.662 1701.393 588.233 Output Total 1300 0 Balance 277.773 4129.393 588.233 Weight 94.6 kg 97 kg Intake: IV 939 936 390 Pressure bag 39 36 15 Sodium Chloride 0.9% 1, 900 900 375 000 ml @ 75 mls/hr IV . [id number] [facility] Rx#:[id number] Intake, IV Titration 685.662 682.393 156.233 Amount Heparin Sod,Pork in 0.45% 74.993 NaCl 25,000 unit In 0.45 % NaCl 1 250ml.bag @ 10. 57 UNITS/KG/HR 9.999 mls/ hr IV .Q24H [facility] Rx#: [id number] Norepinephrine 8 mg In 441.806 259.472 59.377 Sodium Chloride 0.9% 250 ml @ 0.03 MCG/KG/MIN 5. 317 mls/hr IV .Q24H [facility] Rx#:[id number] Sodium Chloride 0.9% 80 61.677 ml @ 0.5 MCG/KG/HR 4.58 mls/hr IV .[id number] [facility] with fentaNYL (PF) 1,000 mcg Rx#:[id number] Vasopressin 60 unit In 120.64 27.311 Sodium Chloride 0.9% 150 ml @ 0.03 UNITS/MIN 4.59 mls/hr IV .Q24H [facility] Rx#: [id number] propofoL 1,000 mg In 182.179 227.288 69.545 Empty Bag 1 bag @ 15 MCG/ KG/MIN 7.348 mls/hr IV . [id number] [facility] Rx#:[id number] Tube Feeding 110 83 42 Hemodialysis 300 Other 60 Output: Urine 0 0 Hemodialysis 1300 Other: Voiding Method Indwelling Catheter Indwelling Catheter # Bowel Movements 1 ABP, PAP, CO, CI - Last Documented Arterial Blood Pressure 95/58 - Labs CBC & Chem 7: 08/15/22 04:15 08/15/22 04:15 Labs: Abnormal Lab Results - Last 24 Hours (Table) 08/14/22 08/14/22 08/14/22 Range/Units 13:16 19:00 21:08 WBC (3.8-10.6) k/uL RBC (4.30-5.90) m/uL Hgb (13.0-17.5) gm/dL Hct (39.0-53.0) % Plt Count (150-450) k/uL Neutrophils # (1.3-7.7) k/uL Lymphocytes # (1.0-4.8) k/uL APTT 36.7 H (22.0-30.0) sec ABG pCO2 (35-45) mmHg ABG O2 Saturation (94-97) % Carbon Dioxide (22-30) mmol/L BUN (9-20) mg/dL Creatinine (0.66-1.25) mg/dL Glucose (74-99) mg/dL POC Glucose (mg/dL) 176 H 200 H (70-110) mg/dL Calcium (8.4-10.2) mg/dL 08/14/22 08/15/22 08/15/22 Range/Units 23:31 04:15 04:15 WBC 16.6 H (3.8-10.6) k/uL RBC 3.44 L (4.30-5.90) m/uL Hgb 10.7 L (13.0-17.5) gm/dL Hct 32.0 L (39.0-53.0) % Plt Count 111 L (150-450) k/uL Neutrophils # 15.1 H (1.3-7.7) k/uL Lymphocytes # 0.8 L (1.0-4.8) k/uL APTT 61.7 H (22.0-30.0) sec ABG pCO2 (35-45) mmHg ABG O2 Saturation (94-97) % Carbon Dioxide (22-30) mmol/L BUN (9-20) mg/dL Creatinine (0.66-1.25) mg/dL Glucose (74-99) mg/dL POC Glucose (mg/dL) 192 H (70-110) mg/dL Calcium (8.4-10.2) mg/dL 08/15/22 08/15/22 08/15/22 Range/Units 04:15 05:30 05:43 WBC (3.8-10.6) k/uL RBC (4.30-5.90) m/uL Hgb (13.0-17.5) gm/dL Hct (39.0-53.0) % Plt Count (150-450) k/uL Neutrophils # (1.3-7.7) k/uL Lymphocytes # (1.0-4.8) k/uL APTT (22.0-30.0) sec ABG pCO2 34 L (35-45) mmHg ABG O2 Saturation 97.8 H (94-97) % Carbon Dioxide 21 L (22-30) mmol/L BUN 52 H (9-20) mg/dL Creatinine 6.68 H (0.66-1.25) mg/dL Glucose 173 H (74-99) mg/dL POC Glucose (mg/dL) 182 H (70-110) mg/dL Calcium 7.4 L (8.4-10.2) mg/dL 08/15/22 Range/Units 11:20 WBC (3.8-10.6) k/uL RBC (4.30-5.90) m/uL Hgb (13.0-17.5) gm/dL Hct (39.0-53.0) % Plt Count (150-450) k/uL Neutrophils # (1.3-7.7) k/uL Lymphocytes # (1.0-4.8) k/uL APTT (22.0-30.0) sec ABG pCO2 (35-45) mmHg ABG O2 Saturation (94-97) % Carbon Dioxide (22-30) mmol/L BUN (9-20) mg/dL Creatinine (0.66-1.25) mg/dL Glucose (74-99) mg/dL POC Glucose (mg/dL) 148 H (70-110) mg/dL Calcium (8.4-10.2) mg/dL Microbiology - Last 24 Hours (Table) 08/13/22 14:18 Blood Culture - Preliminary Blood 08/13/22 14:14 Blood Culture - Preliminary Blood
[2022-08-15] MEDS: HEPARIN SOD,PORK IN 0.45% NACL 25,000 UNIT in 0.45% NACL 1 250ML.BAG IV SCH (12:53)
[2022-08-15] MEDS: PIPERACILLIN-TAZOBACTAM 3.375 GM in SODIUM CHLORIDE 0.9% 100 ML IVPB SCH ×2 (13:02→23:23)
--- NOTE | 2022-08-15 16:29 | P.PN ---
Subjective Progress Note Date: 08/15/22 A shunt seen at bedside and the per the patient nurse no change. Patient continues to be on IV propofol and the fentanyl has been off since 10 AM yesterday. Objective - Vital Signs Vital signs: Vital Signs Temp 97 F L 08/15/22 16:17 Pulse 83 08/15/22 16:17 Resp 24 08/15/22 16:17 BP 110/56 08/15/22 16:17 Pulse Ox 97 08/15/22 14:00 FiO2 50 08/15/22 15:10 Intake & Output 08/14/22 08/15/22 08/15/22 18:59 06:59 18:59 Intake Total 2094.662 2691.186 4422.107 Output Total 1300 2500 Balance 010.064 4102.393 -981.893 Weight 94.6 kg 97 kg 97 kg Intake: IV 939 936 624 Pressure bag 39 36 24 Sodium Chloride 0.9% 1, 900 900 600 000 ml @ 75 mls/hr IV . [id number] [facility] Rx#:[id number] Intake, IV Titration 685.662 682.393 459.107 Amount Heparin Sod,Pork in 0.45% 74.993 169.05 NaCl 25,000 unit In 0.45 % NaCl 1 250ml.bag @ 10. 57 UNITS/KG/HR 9.999 mls/ hr IV .Q24H [facility] Rx#: [id number] Norepinephrine 8 mg In 441.806 259.472 193.201 Sodium Chloride 0.9% 250 ml @ 0.03 MCG/KG/MIN 5. 317 mls/hr IV .Q24H [facility] Rx#:[id number] Sodium Chloride 0.9% 80 61.677 ml @ 0.5 MCG/KG/HR 4.58 mls/hr IV .[id number] [facility] with fentaNYL (PF) 1,000 mcg Rx#:[id number] Vasopressin 60 unit In 120.64 27.311 Sodium Chloride 0.9% 150 ml @ 0.03 UNITS/MIN 4.59 mls/hr IV .Q24H [facility] Rx#: [id number] propofoL 1,000 mg In 182.179 227.288 69.545 Empty Bag 1 bag @ 15 MCG/ KG/MIN 7.348 mls/hr IV . [id number] [facility] Rx#:[id number] Tube Feeding 110 83 105 Hemodialysis 300 300 Other 60 30 Output: Urine 0 0 Hemodialysis 1300 2500 Other: Voiding Method Indwelling Catheter Indwelling Catheter Indwelling Catheter # Bowel Movements 1 ABP, PAP, CO, CI - Last Documented Arterial Blood Pressure 91/50 - Exam GENERAL: The patient is lying in bed and does not appear in acute distress. NEUROLOGICAL: Limited because of condition and sedation (IV propofol 60mcg/kg/min but fentanyl has been off since yesterday in the morning. Higher mental function: Is comatose GCS 3 ( E1, VT1, M1). Cranial nerves: The pupils are pinpoint and hard to appreciate light reactivity. +ve coreneal reflex over the right. Has intact weak gag reflex. Is breathing over the vent (AC set at 22 and is breathing 25). Otherwise no occulocephalic reflex. No facial weakness. Motor: The strength is hard to assess but no movement noted. No spontaneous movement. Normal bulk. Decrease tone mildly throughout. Cerebellum: Unable to assess. Sensation: Unable to assess light touch but no withdrawal or grimaces to painful stimuli. - Labs CBC & Chem 7: 08/15/22 04:15 08/15/22 04:15 Labs: Abnormal Lab Results - Last 24 Hours (Table) 08/14/22 08/14/22 08/14/22 Range/Units 19:00 21:08 23:31 WBC (3.8-10.6) k/uL RBC (4.30-5.90) m/uL Hgb (13.0-17.5) gm/dL Hct (39.0-53.0) % Plt Count (150-450) k/uL Neutrophils # (1.3-7.7) k/uL Lymphocytes # (1.0-4.8) k/uL APTT 36.7 H (22.0-30.0) sec ABG pCO2 (35-45) mmHg ABG O2 Saturation (94-97) % Carbon Dioxide (22-30) mmol/L BUN (9-20) mg/dL Creatinine (0.66-1.25) mg/dL Glucose (74-99) mg/dL POC Glucose (mg/dL) 200 H 192 H (70-110) mg/dL Calcium (8.4-10.2) mg/dL Troponin I (0.000-0.034) ng/mL 08/15/22 08/15/22 08/15/22 Range/Units 04:15 04:15 04:15 WBC 16.6 H (3.8-10.6) k/uL RBC 3.44 L (4.30-5.90) m/uL Hgb 10.7 L (13.0-17.5) gm/dL Hct 32.0 L (39.0-53.0) % Plt Count 111 L (150-450) k/uL Neutrophils # 15.1 H (1.3-7.7) k/uL Lymphocytes # 0.8 L (1.0-4.8) k/uL APTT 61.7 H (22.0-30.0) sec ABG pCO2 (35-45) mmHg ABG O2 Saturation (94-97) % Carbon Dioxide 21 L (22-30) mmol/L BUN 52 H (9-20) mg/dL Creatinine 6.68 H (0.66-1.25) mg/dL Glucose 173 H (74-99) mg/dL POC Glucose (mg/dL) (70-110) mg/dL Calcium 7.4 L (8.4-10.2) mg/dL Troponin I (0.000-0.034) ng/mL 08/15/22 08/15/22 08/15/22 Range/Units 05:30 05:43 11:20 WBC (3.8-10.6) k/uL RBC (4.30-5.90) m/uL Hgb (13.0-17.5) gm/dL Hct (39.0-53.0) % Plt Count (150-450) k/uL Neutrophils # (1.3-7.7) k/uL Lymphocytes # (1.0-4.8) k/uL APTT (22.0-30.0) sec ABG pCO2 34 L (35-45) mmHg ABG O2 Saturation 97.8 H (94-97) % Carbon Dioxide (22-30) mmol/L BUN (9-20) mg/dL Creatinine (0.66-1.25) mg/dL Glucose (74-99) mg/dL POC Glucose (mg/dL) 182 H 148 H (70-110) mg/dL Calcium (8.4-10.2) mg/dL Troponin I (0.000-0.034) ng/mL 08/15/22 Range/Units 12:45 WBC (3.8-10.6) k/uL RBC (4.30-5.90) m/uL Hgb (13.0-17.5) gm/dL Hct (39.0-53.0) % Plt Count (150-450) k/uL Neutrophils # (1.3-7.7) k/uL Lymphocytes # (1.0-4.8) k/uL APTT (22.0-30.0) sec ABG pCO2 (35-45) mmHg ABG O2 Saturation (94-97) % Carbon Dioxide (22-30) mmol/L BUN (9-20) mg/dL Creatinine (0.66-1.25) mg/dL Glucose (74-99) mg/dL POC Glucose (mg/dL) (70-110) mg/dL Calcium (8.4-10.2) mg/dL Troponin I 15.600 H* (0.000-0.034) ng/mL Microbiology - Last 24 Hours (Table) 08/13/22 14:18 Blood Culture - Preliminary Blood 08/13/22 14:14 Blood Culture - Preliminary Blood Assessment and Plan Assessment: * Status post witnessed cardiac arrest in [employer] lab[employer] with downtime of around 10 minutes * Encephalopathy, likely anoxic with superimposed sedation (IV Propofol) toxic metabolic encephalopathy from causes as below. * Acute STEMI, status post cardiac cath and cardiac stenting * Acute kidney injury due to cardiac arrest, nephrology following * Ventilator-dependent respiratory failure, on mechanical ventilation. * High fever, possible pneumonia. * Likely right ischemic limb * Hypertension * Tobacco use * Previous history of alcoholism * Obesity Plan: * CT head showed no acute intracranial process. * EEG: It is reported as background slowing and disorganization suggestive of encephalopathy of moderate to severe degree. Presence of intermittent high amplitude, rhythmic frontally predominant delta slowing was seen with sporadic, multi focal, sharply contoured wave. This may suggest underlying convulsive tendencies. Suggest prolonged EEG for further evaluation. * Currently the patient is on Keppra 500 mg IV daily started by Dr. Chao. * Pending 2.5 hour EEG today. * CTA of the neck from 05/21/2019 showed no stenosis. * Patient has a T-max of 101.5. Currently not on antibiotics. Will defer to critical care, for any need for antibiotic, possible aspiration. * 2-D echo revealed severe left-ventricular systolic dysfunction secondary to extensive myocardial infarction in LAD distribution. EF is not mentioned. Impella catheter in LVOT. Mild MR, dilated right ventricle, mild left atrial dilation. * Continue aspirin, Lipitor and Effient. * Nephrology is on board. Patient condition is critical. I discussed with the patient's nurse. Time with Patient: Less than 30
[2022-08-15 17:40] LABS: Glucose,Whole Blood 131 mg/dL (70-110)
[2022-08-15] MEDS: ATORVASTATIN 80 MG TAB PO SCH (21:52)
[2022-08-15] MEDS: SODIUM CHLORIDE 0.9% 80 ML with fentaNYL (PF) 1,000 MCG IV SCH ×2 (21:54)
--- NOTE | 2022-08-15 23:17 | PN ---
PROGRESS NOTE DATE OF SERVICE: 08/15/2022 CHIEF COMPLAINT: Acute STEMI with cardiogenic shock. HISTORY OF PRESENT ILLNESS: This gentleman is about the same. He is becoming a little bit more responsive. EEG is being done at the time of the exam. He is on dialysis now. PHYSICAL EXAMINATION: CHEST: Clear. CARDIAC: Reveals regular sinus rhythm. ABDOMEN: Soft. IMPRESSION: 1. ST-elevation myocardial infarction with cardiogenic shock. 2. Acute renal failure. PLAN: No change in program. Await results of EEG. We will follow with Cardiology, Pulmonology, and Nephrology. MMODL / IJN: [id number] /
[2022-08-15 23:29] LABS: Glucose,Whole Blood 138 mg/dL (70-110)
[2022-08-16] MEDS: NOREPINEPHRINE 8 MG in SODIUM CHLORIDE 0.9% 250 ML IV SCH ×2 (00:06→16:25)
[2022-08-16] MEDS: INSULIN ASPART (NovoLOG) 100 UNIT/ML VIAL SQ SCH ×5 (00:07→23:49)
[2022-08-16] MEDS: IPRATROPIUM-ALBUTEROL 3 ML NEB INHALATION SCH ×7 (00:28→23:39)
[2022-08-16 04:43] LABS: Basophils % (A) 0 %; Eosinophils # (A) 0.1 k/uL (0-0.7); Eosinophils % (A) 1 %; HCT 30.2 % (39.0-53.0); Lymphocytes # (A) 0.9 k/uL (1.0-4.8); Lymphocytes % (A) 6 %; MCH 30.2 pg (25.0-35.0); MCV 91.4 fL (80.0-100.0); Mean Platelet Volume 10.3; Monocytes # (A) 0.6 k/uL (0-1.0); Monocytes % (A) 4 %; Neutrophils # (A) 13.6 k/uL (1.3-7.7); Neutrophils % (A) 89 %; Platelet Count 124 k/uL (150-450); RBC 3.31 m/uL (4.30-5.90); RDW 14.5 % (11.5-15.5); WBC 15.3 k/uL (3.8-10.6)
[2022-08-16 05:43] LABS: Calcium 6.8 mg/dL (8.4-10.2)
[2022-08-16 05:46] LABS: Glucose,Whole Blood 136 mg/dL (70-110)
[2022-08-16] MEDS: methylPREDNISolone SOD SUCCI 125 MG/2 ML VIAL IV SCH ×3 (05:54→18:29)
[2022-08-16 06:14] LABS: ABG Base Excess -2.7 mmol/L; ABG HCO3 22 mmol/L (21-25); ABG Oxygen Saturation 96.1 % (94-97); ABG PCO2 33 mmHg (35-45); ABG PH 7.42 (7.35-7.45); ABG PO2 81 mmHg (83-108); ABG TCO2 23 mmol/L (19-24); Allen Test Performed? Yes
[2022-08-16] MEDS: BUDESONIDE 1 MG/2 ML NEBU INHALATION SCH ×2 (08:26→20:06)
[2022-08-16] MEDS: FORMOTEROL FUMARATE 20 MCG/2 ML NEBU INHALATION SCH ×2 (08:26→20:06)
--- NOTE | 2022-08-16 10:30 | P.PN ---
Subjective Progress Note Date: 08/16/22 Principal diagnosis: Respiratory failure. Acute hypoxic respiratory failure secondary to acute anterior wall [place] and ventricular fibrillation cardiac arrest. This is a 57-year-old white male with known history of hypertension, no previous history of documented coronary artery disease. Patient presented to the ER yesterday with acute onset of retrosternal chest pain scale of 8/10. Pain started about 20 minutes prior to arrival to the ER. Upon arrival the patient was noted to be pale and diaphoretic. Pain actually started with the patient was working in the [employer], and he had a brief episode of almost near syncope. He was also complaining of shortness of breath. Patient was found to have acute myocardial infarction, underwent cardiac catheterization and he was noted to have subtotally occluded proximal LAD. He underwent angioplasty and stenting. Patient actually had successful stenting of the proximal LAD and successful placement of M Silas catheter for hemodynamic support because during his cardiac catheterization, patient had episodes of ventricular fibrillation and tachycardia requiring CPR and multiple cardioversions. Patient was intubated by anesthesia while in the catheterization lab. Patient was found to have also chronically occluded mid RCA and elevated left ventricular end- diastolic pressure patient was transferred to the ICU on mechanical ventilation, and I was asked to see him on consultation. Patient is now on assist control r ate of 20, volume 450 FiO2 40% and PEEP of 5. ABG showed a pO2 of 197 pCO2 45 pH of 7.34 and this was on 70% FiO2. Patient is on propofol at 40 mcg/kg/m he was on 1 mg of Versed which I have discontinued his also on Nimbex at 2 mcg/kg/m norepinephrine at 0.04 mcg/kg/m amiodarone 0.5 mg/m. Patient was on bicarb drip at 50 mL per hour and I cut it down to 25 mL per hour. Patient was also noted t o have acute hyperkalemia and acute kidney injury that seems to be progressively getting worse as I recommended nephrology consultation. Patient is noted to have coffee ground material in the nasogastric tube and he had bloody urine. Heparin was briefly placed on hold by cardiology already. And I am Silas device is being addressed by cardiology today. WBC count is 17.5 hemoglobin is 13.8 PTT is 46.3. Fibrinogen 357, potassium 5.9 bicarb is up to 28 BUN is 30 creatinine 2.19 LDH is 2620 calcium is 7.0 chest x-ray this morning showed mild cardiomegaly and central venous congestion consistent with mild CHF. Echocardiogram on this admission showed ejection fraction of 10% and there is also evidence of mild mitral regurgitation 20, tidal volume 450, FiO2 40%, and PEEP of 5 patient was reevaluated today on 08/13/2022, patient remains in the ICU, intubated and mechanically ventilated. Patient is on assist control rate of 20 tidal volume 450 FiO2 45% and PEEP of 5 ABG showed a pO2 of 108 pCO2 35 pH of 7.47 hence his rate was cut down to 18 and his FiO2 cut down to 40%. the impella was removed by cardiology yesterday, patient is still requiring norepinephrine at 0.12 mcg/kg/m for blood pressure support. Remains on propofol at 50 mcg/kg/m. Patient has very poor minimal urine output and history of functioning is getting much worse. Hence I'm recommending a trial of Lasix 80 mg IV push 1. In the meantime patient will need to be seen by nephrology for his acute kidney injury secondary to hypotension/secondary to acute tubular necrosis. His IV fluids remains at 0.9 /75 mL per hour chest x-ray showed significant improvement in his congestive heart failure. WBC count is 22.9 hemoglobin 13.5. Platelets are 135. Basic metabolic profile and electrolytes are normal however his BUN is up to 54 creatinine is up to 4.35. His initial creatinine on admission was 1.08. Clearly this is consistent with acute kidney injury/acute tubular necrosis. Still concerned about mentation, hence will give the patient a sedation holiday/interruption and assess mental status, if determ ined to have possible anoxic brain injury will likely order a CT of the brain and initiate a neurological consultation Progress note dated 08/14/2022. This is a 57-year-old male who was admitted to the hospital on August 11. He came with chest pain, shortness of breath, and syncope. He is found to have an ST segment elevation myocardial infarction. He went to the catheterization laboratory on August 11, he developed ventricular fibrillation and ventricular tachycardia. He was defibrillated no less than 10 times. He was intubated at that time, and had 2 stents placed to his LAD, and had an Impella device placed. That device was removed the on August 12. He remains on mechanical ventilator, wi th possible anoxic brain injury. He is on by Mrs. control, rate 18, tidal volume 450, FiO2 60%, and PEEP of 5. Blood gases show pO2 of 99, pCO2 38, and pH is 7.35. That was on 70% FiO2. The patient's on saline at 75 mL an hour, propofol at 65 mcg/kg/m, norepinephrine at 21 mcg/m, vasopressin at 0.03 units per minute, fentanyl at 0.5 mcg/kg/h, and tube feedings with Nepro at 10 mL an hour. White count 22.7, hemoglobin 12, hematocrit 35.6, platelet count 107,000. Sodium 136, potassium 4.7, chlorides 104, CO2 20, anion gap 12, BUN 64, creatinine 7.25. AST is 621 ALT is 344. Microbiology sampling has been negative thus far. Chest x-ray shows some mild pulmonary venous congestion. Left subclavian triple-lumen catheter is in good position. There was no pneumothorax. Progress note dated 08/15/2022. 57-year-old male was admitted to the hospital on August 11. He came in with chest pain, shortness of breath, and syncope. He was found to have an ST segment elevation myocardial infarction. He went to the catheterization laboratory on August 11, developed ventricular fibrillation and ventricular tachycardia. He was defibrillated multiple times, maybe 10 or so. He was also intubated at the same time, and had 2 stents placed to his LAD, and, an Impella device placed. That device was removed on August 12. The patient remains on mechanical ventilator. His vent settings include assist control, rate 22, tidal volume 450, FiO2 50%, and PEEP of 5. Blood gases show pO2 of 98, CO2 34, pH 7.41. White count 16.6, hemoglobin 10.7, hematocrit 32, and platelet count 111,000. PTT is 62. Sodium 137, potassium 4, chlorides 101, CO2 21, anion gap 15, BUN 52, creatinine 6.68. Chest x-ray is consistent with interstitial edema. Progress note dated 08/16/2022. 57-year-old male was admitted to the hospital on August 11, chest pain, shortness breath, and syncope. The patient was found to have an ST segment elevation myocardial infarction. He went to the catheterization laboratory on August 11, developed ventricular fibrillation ventricular tachycardia, defibrillated multiple times, and was intubated at the same time, and had 2 stents placed in his LAD. In addition, for a day, he had a Impella device, that was removed the following day. Currently, he remains on the mechanical ventilator. His settings include assist control, rate 22, tidal volume 450, FiO2 50%, PEEP of 5. Blood gases show pO2 of 81, pCO2 33, and a pH is 7.42. The patient's on propofol at 30 mcg/kg/m, 0.9 at 75 mL an hour, heparin via weightbase protocol, and norepinephrine, at 3 mcg/m. Tube feedings on hold for possible cardiac test today. White count 15.3, hemoglobin 10, hematocrit 30.2, and platelet count 124,000. Sodium is 133, potassium 4, chlorides 99, CO2 21, anion gap 13, BUN 55, and creatinine 5.29. Calcium is 6.8. Microbiologic studies are negative. Chest x-rays essentially unchanged. Objective - Vital Signs Vital signs: Vital Signs Temp 98.0 F 08/16/22 04:00 Pulse 108 H 08/16/22 09:05 Resp 31 H 08/16/22 09:05 BP 110/56 08/15/22 16:17 Pulse Ox 92 L 08/16/22 07:00 FiO2 70 08/16/22 09:10 Intake & Output 08/15/22 08/16/22 08/16/22 18:59 06:59 18:59 Intake Total 2151.406 1386.101 78 Output Total 2500 Balance -339.495 6090.101 78 Weight 97 kg 99.2 kg Intake: IV 936 936 78 Pressure bag 36 36 3 Sodium Chloride 0.9% 1, 900 900 75 000 ml @ 75 mls/hr IV . [id number] [facility] Rx#:[id number] Intake, IV Titration 672.406 450.101 Amount Heparin Sod,Pork in 0.45% 169.05 NaCl 25,000 unit In 0.45 % NaCl 1 250ml.bag @ 10. 57 UNITS/KG/HR 9.999 mls/ hr IV .Q24H [facility] Rx#: [id number] Norepinephrine 8 mg In 241.590 156.169 Sodium Chloride 0.9% 250 ml @ 0.03 MCG/KG/MIN 5. 317 mls/hr IV .Q24H [facility] Rx#:[id number] Vasopressin 60 unit In 27.311 Sodium Chloride 0.9% 150 ml @ 0.03 UNITS/MIN 4.59 mls/hr IV .Q24H [facility] Rx#: [id number] propofoL 1,000 mg In 234.455 293.932 Empty Bag 1 bag @ 15 MCG/ KG/MIN 7.348 mls/hr IV . [id number] [facility] Rx#:[id number] Tube Feeding 183 Hemodialysis 300 Other 60 Output: Urine 0 Hemodialysis 2500 Other: Voiding Method Indwelling Catheter Indwelling Catheter # Bowel Movements 1 ABP, PAP, CO, CI - Last Documented Arterial Blood Pressure 113/59 - Exam No acute distress, sedated, with an orally placed endotracheal tube and NG tube. HEENT examination is grossly unremarkable. Neck supple. Full range of motion. No adenopathy thyromegaly or neck vein distention. Left subclavian triple-lumen catheter is noted. Cardiovascular examination reveals regular rhythm rate. S1-S2 normal. No S3 or S4. No discernible murmur noted. Heart rate 108 bpm. Heart sounds are distant. Lungs reveal scattered mild rhonchi. Breath sounds equal. No wheezes. Saturations are 96%. Abdomen soft, without bowel sounds. No masses or tenderness. Extremities are intact. No cyanosis clubbing or edema. Skin is without rash or lesion. Neurologic examination cannot be adequately assessed at this time. - Labs CBC & Chem 7: 08/16/22 04:27 08/16/22 04:27 Labs: Abnormal Lab Results - Last 24 Hours (Table) 08/15/22 08/15/22 08/15/22 Range/Units 11:20 12:45 17:39 WBC (3.8-10.6) k/uL RBC (4.30-5.90) m/uL Hgb (13.0-17.5) gm/dL Hct (39.0-53.0) % Plt Count (150-450) k/uL Neutrophils # (1.3-7.7) k/uL Lymphocytes # (1.0-4.8) k/uL APTT (22.0-30.0) sec ABG pCO2 (35-45) mmHg ABG pO2 (83-108) mmHg Sodium (137-145) mmol/L Carbon Dioxide (22-30) mmol/L BUN (9-20) mg/dL Creatinine (0.66-1.25) mg/dL Glucose (74-99) mg/dL POC Glucose (mg/dL) 148 H 131 H (70-110) mg/dL Calcium (8.4-10.2) mg/dL Troponin I 15.600 H* (0.000-0.034) ng/mL 08/15/22 08/16/22 08/16/22 Range/Units 23: 04:27 04:27 WBC (3.8-10.6) k/uL RBC (4.30-5.90) m/uL Hgb (13.0-17.5) gm/dL Hct (39.0-53.0) % Plt Count (150-450) k/uL Neutrophils # (1.3-7.7) k/uL Lymphocytes # (1.0-4.8) k/uL APTT 49.8 H (22.0-30.0) sec ABG pCO2 (35-45) mmHg ABG pO2 (83-108) mmHg Sodium 133 L (137-145) mmol/L Carbon Dioxide 21 L (22-30) mmol/L BUN 55 H (9-20) mg/dL Creatinine 5.29 H (0.66-1.25) mg/dL Glucose 131 H (74-99) mg/dL POC Glucose (mg/dL) 138 H (70-110) mg/dL Calcium 6.8 L (8.4-10.2) mg/dL Troponin I (0.000-0.034) ng/mL 08/16/22 08/16/22 08/16/22 Range/Units 04:27 05:45 06:01 WBC 15.3 H (3.8-10.6) k/uL RBC 3.31 L (4.30-5.90) m/uL Hgb 10.0 L (13.0-17.5) gm/dL Hct 30.2 L (39.0-53.0) % Plt Count 124 L (150-450) k/uL Neutrophils # 13.6 H (1.3-7.7) k/uL Lymphocytes # 0.9 L (1.0-4.8) k/uL APTT (22.0-30.0) sec ABG pCO2 33 L (35-45) mmHg ABG pO2 81 L (83-108) mmHg Sodium (137-145) mmol/L Carbon Dioxide (22-30) mmol/L BUN (9-20) mg/dL Creatinine (0.66-1.25) mg/dL Glucose (74-99) mg/dL POC Glucose (mg/dL) 136 H (70-110) mg/dL Calcium (8.4-10.2) mg/dL Troponin I (0.000-0.034) ng/mL Microbiology - Last 24 Hours (Table) 08/13/22 14:18 Blood Culture - Preliminary Blood 08/13/22 14:14 Blood Culture - Preliminary Blood Assessment and Plan Assessment: Acute hypoxemic respiratory failure, secondary to an anterior wall ST segment elevation myocardial infarction, status post stenting of the LAD 2, and placement of a Impella device. Status post intubation mechanical ventilation for respiratory failure, 08/11/2022. Cardiogenic shock. Acute kidney injury secondary to ATN, currently receiving intermittent hemodialysis. Ventricular fibrillation arrest, status post multiple defibrillations and amiodarone. Acute metabolic acidosis. Severe systolic dysfunction, with an ejection fraction of 12%. Probable anoxic brain injury. Acute hyperkalemia secondary to acute kidney injury. Plan: Plan dated 08/14/2022. The patient is seen today, in room 252. Patient is being followed by neurology. Labs, x-rays, medications are reviewed. The patient's overall prognosis remains very tenuous. The patient continues to be a full code. A left subclavian triple lumen catheter was placed today. We will continue to follow make recommendations along the way. Prognosis is guarded. Plan dated 08/15/2022. The patient is seen today again in room 252. The patient will receive hemodialysis today. Tube feedings are hold, but will be resumed, with vital high protein at 20 mL an hour. The fentanyl drip has been discontinued. We will attempted daily interruption of sedation today. The patient remains on propofol at 30 mcg/kg/m, norepinephrine at 14 mcg/m, heparin via weightbase protocol, vasopressin at 0.03 units per minute, and saline at 75 mL an hour. The patient may not be ready for a spontaneous breathing trial. We will continue to follow. Labs, x-rays, and medications are all reviewed. Prognosis is certainly guarded. Plan dated 08/16/2022. The patient is seen again today in room 253. The patient underwent hemodialysis yesterday. 2.5 L was removed. The chest x-ray looks about the same. Oxygenation is reasonable. The patient remains on propofol, and IV heparin, and a small amount of norepinephrine at 3 mcg/m. The patient had daily interruption of sedation today. Unfortunately, the patient's mental status is very poor, the patient has guppy breathing, and does not respond. Labs, x-rays, medications are all reviewed. The patient's overall prognosis remains very poor. We will continue to follow. Time with Patient: Greater than 30
--- NOTE | 2022-08-16 10:37 | CT ---
EXAMINATION TYPE: CT brain wo con DATE OF EXAM: 08/16/2022 HISTORY: Right sided weakness CT DLP: 1099.8 mGycm. Automated Exposure Control for Dose Reduction was Utilized. TECHNIQUE: CT scan of the head is performed without contrast. COMPARISON: CT brain 3 days ago. FINDINGS: There is no acute intracranial hemorrhage or midline shift identified. There is mild diff use ventricular and sulcal prominence redemonstrated. Ceja-white matter differentiation is fairly wel l maintained. Soft tissue density consistent with cerumen in the bilateral external auditory canals is redemonstrated. Interval extubation with removal of the partially visualized endotracheal tube. Th e globes are intact and the visualized sinuses are clear. IMPRESSION: No acute intracranial hemorrhage or midline shift. No significant change from prior CT.
--- NOTE | 2022-08-16 10:37 | P.PN ---
Subjective Progress Note Date: 08/16/22 The patient seen at bedside and per the patient nurse the patient was on IV propofol 40mcg/kg/hr and was held for 1 hour and during examination he was moving the left side but not the right side and would open left eye and not right. Patient is on heparin drip for past at least 3-4 days per nurse for his cardiac. Objective - Vital Signs Vital signs: Vital Signs Temp 98.0 F 08/16/22 04:00 Pulse 108 H 08/16/22 09:05 Resp 31 H 08/16/22 09:05 BP 110/56 08/15/22 16:17 Pulse Ox 92 L 08/16/22 07:00 FiO2 70 08/16/22 09:10 Intake & Output 08/15/22 08/16/22 08/16/22 18:59 06:59 18:59 Intake Total 2151.406 1386.101 78 Output Total 2500 Balance -164.843 8885.101 78 Weight 97 kg 99.2 kg Intake: IV 936 936 78 Pressure bag 36 36 3 Sodium Chloride 0.9% 1, 900 900 75 000 ml @ 75 mls/hr IV . [id number] LEIGH Rx#:[id number] Intake, IV Titration 672.406 450.101 Amount Heparin Sod,Pork in 0.45% 169.05 NaCl 25,000 unit In 0.45 % NaCl 1 250ml.bag @ 10. 57 UNITS/KG/HR 9.999 mls/ hr IV .Q24H LEIGH Rx#: [id number] Norepinephrine 8 mg In 241.590 156.169 Sodium Chloride 0.9% 250 ml @ 0.03 MCG/KG/MIN 5. 317 mls/hr IV .Q24H LEIGH Rx#:[id number] Vasopressin 60 unit In 27.311 Sodium Chloride 0.9% 150 ml @ 0.03 UNITS/MIN 4.59 mls/hr IV .Q24H LEIGH Rx#: [id number] propofoL 1,000 mg In 234.455 293.932 Empty Bag 1 bag @ 15 MCG/ KG/MIN 7.348 mls/hr IV . [id number] LEIGH Rx#:[id number] Tube Feeding 183 Hemodialysis 300 Other 60 Output: Urine 0 Hemodialysis 2500 Other: Voiding Method Indwelling Catheter Indwelling Catheter # Bowel Movements 1 ABP, PAP, CO, CI - Last Documented Arterial Blood Pressure 113/59 - Exam GENERAL: The patient is lying in bed and does not appear in acute distress. NEUROLOGICAL: Limited because of condition and sedation (IV propofol 40mcg/kg/min. Higher mental function: Is comatose GCS 3 ( E1, VT1, M1). Cranial nerves: The pupils are round, equal and reactive to light. Is breathing over the vent. Positive weak cough and gag. Otherwise no occulocephalic reflex. No facial weakness. Motor: The strength is hard to assess but no movement noted throughout. No spontaneous movement. Normal bulk. Decrease tone mildly throughout. Cerebellum: Unable to assess. Sensation: Unable to assess light touch but no withdrawal or grimaces to painful stimuli. - Labs CBC & Chem 7: 08/16/22 04:27 08/16/22 04:27 Labs: Abnormal Lab Results - Last 24 Hours (Table) 08/15/22 08/15/22 08/15/22 Range/Units 11:20 12:45 17:39 WBC (3.8-10.6) k/uL RBC (4.30-5.90) m/uL Hgb (13.0-17.5) gm/dL Hct (39.0-53.0) % Plt Count (150-450) k/uL Neutrophils # (1.3-7.7) k/uL Lymphocytes # (1.0-4.8) k/uL APTT (22.0-30.0) sec ABG pCO2 (35-45) mmHg ABG pO2 (83-108) mmHg Sodium (137-145) mmol/L Carbon Dioxide (22-30) mmol/L BUN (9-20) mg/dL Creatinine (0.66-1.25) mg/dL Glucose (74-99) mg/dL POC Glucose (mg/dL) 148 H 131 H (70-110) mg/dL Calcium (8.4-10.2) mg/dL Troponin I 15.600 H* (0.000-0.034) ng/mL 08/15/22 08/16/22 08/16/22 Range/Units 23:27 04:27 04:27 WBC (3.8-10.6) k/uL RBC (4.30-5.90) m/uL Hgb (13.0-17.5) gm/dL Hct (39.0-53.0) % Plt Count (150-450) k/uL Neutrophils # (1.3-7.7) k/uL Lymphocytes # (1.0-4.8) k/uL APTT 49.8 H (22.0-30.0) sec ABG pCO2 (35-45) mmHg ABG pO2 (83-108) mmHg Sodium 133 L (137-145) mmol/L Carbon Dioxide 21 L (22-30) mmol/L BUN 55 H (9-20) mg/dL Creatinine 5.29 H (0.66-1.25) mg/dL Glucose 131 H (74-99) mg/dL POC Glucose (mg/dL) 138 H (70-110) mg/dL Calcium 6.8 L (8.4-10.2) mg/dL Troponin I (0.000-0.034) ng/mL 08/16/22 08/16/22 08/16/22 Range/Units 04:27 05:45 06:01 WBC 15.3 H (3.8-10.6) k/uL RBC 3.31 L (4.30-5.90) m/uL Hgb 10.0 L (13.0-17.5) gm/dL Hct 30.2 L (39.0-53.0) % Plt Count 124 L (150-450) k/uL Neutrophils # 13.6 H (1.3-7.7) k/uL Lymphocytes # 0.9 L (1.0-4.8) k/uL APTT (22.0-30.0) sec ABG pCO2 33 L (35-45) mmHg ABG pO2 81 L (83-108) mmHg Sodium (137-145) mmol/L Carbon Dioxide (22-30) mmol/L BUN (9-20) mg/dL Creatinine (0.66-1.25) mg/dL Glucose (74-99) mg/dL POC Glucose (mg/dL) 136 H (70-110) mg/dL Calcium (8.4-10.2) mg/dL Troponin I (0.000-0.034) ng/mL Microbiology - Last 24 Hours (Table) 08/13/22 14:18 Blood Culture - Preliminary Blood 08/13/22 14:14 Blood Culture - Preliminary Blood Assessment and Plan Assessment: * 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 * Acute STEMI, status post cardiac cath and cardiac stenting * Acute kidney injury due to cardiac arrest, nephrology following * Ventilator-dependent respiratory failure, on mechanical ventilation. * High fever, possible pneumonia. * Likely right ischemic limb * Hypertension * Tobacco use * Previous history of alcoholism * Obesity Plan: * Because of reported episode by nurse not moving the right side when off sedat ion, so will obtain STAT CT head w/o to rule out stroke. To hold heparin drip for now. * CT head showed no acute intracranial process. * EEG: It is reported as background slowing and disorganization suggestive of encephalopathy of moderate to severe degree. Presence of intermittent high amplitude, rhythmic frontally predominant delta slowing was seen with sporadic, multi focal, sharply contoured wave. This may suggest underlying convulsive tendencies. Suggest prolonged EEG for further evaluation. * Currently the patient is on Keppra 500 mg IV daily started by Dr. Chao. * 2.5 hour EEG completed on 08/15/22: pending official report. * CTA of the neck from 05/21/2019 showed no stenosis. * Patient has a T-max of 101.5. Currently not on antibiotics. Will defer to critical care, for any need for antibiotic, possible aspiration. * 2-D echo revealed severe left-ventricular systolic dysfunction secondary to extensive myocardial infarction in LAD distribution. EF is not mentioned. Impella catheter in LVOT. Mild MR, dilated right ventricle, mild left atrial dilation. * Continue aspirin, Lipitor and Effient. * Nephrology is on board. Patient condition is critical. I discussed with the patient's nurse. UPDATE: The CT head: I personally reviewed it and felt negative for bleed or any evidence of any acute ischemia. Pending official report. I notified the nurse to hold sedation again to obtain a good neurological examination. Time with Patient: Greater than 30
[2022-08-16] MEDS: HEPARIN SOD,PORK IN 0.45% NACL 25,000 UNIT in 0.45% NACL 1 250ML.BAG IV SCH ×2 (10:54→13:13)
[2022-08-16] MEDS: METOPROLOL TARTRATE 25 MG TAB PO SCH ×2 (10:54→20:12)
[2022-08-16 11:15] LABS: Glucose,Whole Blood 138 mg/dL (70-110)
--- NOTE | 2022-08-16 11:26 | P.PN ---
Subjective Patient is seen for follow-up for acute kidney injury. Patient remains intubated Pressors have been decreased and patient is off of vasopressin. This morning patient is noted to be significantly hypoxic. O2 sats at 70%. FiO2 is increased 200%. There was suspicion for possible CVA as patient was not moving one side of his body but CT of the brain was negative. Patient has just returned from computed tomography scan. Currently seen on hemodialysis. Systolic blood pressure at 10 8 mmHg. Levo fed was restarted. Goal UF about 2- 3 L as tolerated. Objective - Vital Signs Vital signs: Vital Signs Temp 98.0 F 08/16/22 04:00 Pulse 109 H 08/16/22 11:15 Resp 23 08/16/22 11:15 BP 110/56 08/15/22 16:17 Pulse Ox 85 L 08/16/22 11:15 FiO2 100 08/16/22 11:15 Intake & Output 08/15/22 08/16/22 08/16/22 18:59 06:59 18:59 Intake Total 2151.406 1386.101 87.660 Output Total 2500 Balance -595.362 4742.101 87.660 Weight 97 kg 99.2 kg Intake: IV 936 936 78 Pressure bag 36 36 3 Sodium Chloride 0.9% 1, 900 900 75 000 ml @ 75 mls/hr IV . [id number] LEIGH Rx#:[id number] Intake, IV Titration 672.406 450.101 9.660 Amount Heparin Sod,Pork in 0.45% 169.05 NaCl 25,000 unit In 0.45 % NaCl 1 250ml.bag @ 10. 57 UNITS/KG/HR 9.999 mls/ hr IV .Q24H LEIGH Rx#: [id number] Norepinephrine 8 mg In 241.590 156.169 9.660 Sodium Chloride 0.9% 250 ml @ 0.03 MCG/KG/MIN 5. 317 mls/hr IV .Q24H LEIGH Rx#:[id number] Vasopressin 60 unit In 27.311 Sodium Chloride 0.9% 150 ml @ 0.03 UNITS/MIN 4.59 mls/hr IV .Q24H LEIGH Rx#: [id number] propofoL 1,000 mg In 234.455 293.932 Empty Bag 1 bag @ 15 MCG/ KG/MIN 7.348 mls/hr IV . [id number] LEIGH Rx#:[id number] Tube Feeding 183 Hemodialysis 300 Other 60 Output: Urine 0 Hemodialysis 2500 Other: Voiding Method Indwelling Catheter Indwelling Catheter # Bowel Movements 1 ABP, PAP, CO, CI - Last Documented Arterial Blood Pressure 77/50 - Exam Patient is sedated and on the vent Examination of the heart S1 and S2 Examination of the lungs bilateral breath sounds are heard Abdomen is soft Examination of lower extremities shows edema trace bilateral, discoloration n oted in the right heel - Labs CBC & Chem 7: 08/16/22 04:27 08/16/22 04:27 Labs: Abnormal Lab Results - Last 24 Hours (Table) 08/15/22 08/15/22 08/15/22 Range/Units 12:45 17:39 23:27 WBC (3.8-10.6) k/uL RBC (4.30-5.90) m/uL Hgb (13.0-17.5) gm/dL Hct (39.0-53.0) % Plt Count (150-450) k/uL Neutrophils # (1.3-7.7) k/uL Lymphocytes # (1.0-4.8) k/uL APTT (22.0-30.0) sec ABG pCO2 (35-45) mmHg ABG pO2 (83-108) mmHg Sodium (137-145) mmol/L Carbon Dioxide (22-30) mmol/L BUN (9-20) mg/dL Creatinine (0.66-1.25) mg/dL Glucose (74-99) mg/dL POC Glucose (mg/dL) 131 H 138 H (70-110) mg/dL Calcium (8.4-10.2) mg/dL Troponin I 15.600 H* (0.000-0.034) ng/mL 08/16/22 08/16/22 08/16/22 Range/Units 04:27 04:27 04:27 WBC 15.3 H (3.8-10.6) k/uL RBC 3.31 L (4.30-5.90) m/uL Hgb 10.0 L (13.0-17.5) gm/dL Hct 30.2 L (39.0-53.0) % Plt Count 124 L (150-450) k/uL Neutrophils # 13.6 H (1.3-7.7) k/uL Lymphocytes # 0.9 L (1.0-4.8) k/uL APTT 49.8 H (22.0-30.0) sec ABG pCO2 (35-45) mmHg ABG pO2 (83-108) mmHg Sodium 133 L (137-145) mmol/L Carbon Dioxide 21 L (22-30) mmol/L BUN 55 H (9-20) mg/dL Creatinine 5.29 H (0.66-1.25) mg/dL Glucose 131 H (74-99) mg/dL POC Glucose (mg/dL) (70-110) mg/dL Calcium 6.8 L (8.4-10.2) mg/dL Troponin I (0.000-0.034) ng/mL 08/16/22 08/16/22 08/16/22 Range/Units 05:45 06:01 11:11 WBC (3.8-10.6) k/uL RBC (4.30-5.90) m/uL Hgb (13.0-17.5) gm/dL Hct (39.0-53.0) % Plt Count (150-450) k/uL Neutrophils # (1.3-7.7) k/uL Lymphocytes # (1.0-4.8) k/uL APTT (22.0-30.0) sec ABG pCO2 33 L (35-45) mmHg ABG pO2 81 L (83-108) mmHg Sodium (137-145) mmol/L Carbon Dioxide (22-30) mmol/L BUN (9-20) mg/dL Creatinine (0.66-1.25) mg/dL Glucose (74-99) mg/dL POC Glucose (mg/dL) 136 H 138 H (70-110) mg/dL Calcium (8.4-10.2) mg/dL Troponin I (0.000-0.034) ng/mL Microbiology - Last 24 Hours (Table) 08/13/22 14:18 Blood Culture - Preliminary Blood 08/13/22 14:14 Blood Culture - Preliminary Blood Assessment and Plan Assessment: 1. Acute kidney injury secondary to ATN secondary to cardiac arrest. Also received IV contrast on 08/11/2022 for cardiac catheterization. Baseline creatinine near 1. Oliguric. No hydronephrosis noted on kidney ultrasound. Serum creatinine was 7.2 and patient was started on hemodialysis on 08/14/2022. 2. Acute AK status post cardiac catheterization with LAD stent placement. Impella removed 08/12/2022. 3. V. fib arrest s/p amiodarone drip. Cardiology following. 4. Hyperkalemia secondary to acute kidney injury. Improved 5. Metabolic acidosis secondary to acute kidney injury status post bicarb drip. Improved. 6. Severe systolic dysfunction with ejection fraction of 12%. 7. Acute hypoxic respiratory failure currently on the vent with significant hypoxia noted today Plan: Hemodialysis today with increase UF to 2-3 L as tolerated. Repeat hemodialysis again in a.m.
--- NOTE | 2022-08-16 11:31 | XR ---
EXAMINATION TYPE: XR chest 1V portable DATE OF EXAM: 08/16/2022 COMPARISON: 08/15/2022 HISTORY: SOB, Follow Up FINDINGS: Indwelling tubes and catheters are unchanged. Pulmonary venous congestion and scattered infiltrates persist without significant change. Stable appearance of the cardio-mediastinal structures at this time. Pleural effusion unchanged. IMPRESSION: 1. Stable portable chest. Clinical correlation and follow up until resolution is recommended.
[2022-08-16] MEDS ORDERED: CISATRACURIUM 2 MG/ML 5 ML VIAL IV ONE (11:48)
[2022-08-16] MEDS: CISATRACURIUM 2 MG/ML 5 ML VIAL IV ONE (11:49)
--- NOTE | 2022-08-16 12:25 | CA ---
Transthoracic Echo Report Name: Nathaniel Rome Age: 57 Gender: M : 1965 Exam Date: 08/16/2022 11:45 Exam Location: [facility] Ht (in): 68 Wt (lb): 218 Ordering Physician: Sebastian Whiteside MD ([id number]) Attending/Referring Phys: Special Officer Slime Troy RDCS Procedure CPT: Indications: LV function Cardiac Hx: limited study Technical Quality: Fair Contrast 1: Total Dose (mL): Contrast 2: Total Dose (mL): MEASUREMENTS (Male / Female) Normal Values 2D ECHO LV Diastolic Volume MOD BP 99.1 cm??? 67 - 155 / 56 - 104 cm??? LV Systolic Volume MOD BP 61.2 cm??? 22 - 58 / 19 - 49 cm??? LV Ejection Fraction MOD BP 38.3 % >= 55 % LV Diastolic Volume MOD 4C 96.5 cm??? LV Systolic Volume MOD 4C 57.6 cm??? LV Ejection Fraction MOD 4C 40.4 % LV Diastolic Length 4C 8.7 cm LV Systolic Length 4C 7.9 cm LV Diastolic Volume MOD 2C 103.6 cm??? LV Systolic Volume MOD 2C 61.5 cm??? LV Ejection Fraction MOD 2C 40.6 % LV Diastolic Length 2C 8.8 cm LV Systolic Length 2C 8.5 cm DOPPLER AV Peak Velocity 114.6 cm/s AV Peak Gradient 5.3 mmHg FINDINGS Left Ventricle Limited study. Left ventricular ejection fraction is estimated at 25-30 %. Thrombus in the apex. Apical akinesis Right Ventricle Right Atrium Left Atrium Mitral Valve Aortic Valve Tricuspid Valve Pulmonic Valve Pericardium Normal pericardium. No pericardial effusion. Aorta CONCLUSIONS Left ventricle is of normal size with estimated ejection fraction of about 25 to 30% with akinesia of the anteroseptal apical and inferoapical wall of the left ventricle as well as the distal anterior wall of the left ventricle. There is an apical filling defect suggestive of thrombus noted no pericardial effusion Previewed by: Dr. Niesha Max MD (Electronically Signed) Final Date: 16 Aug 2022 12:24
[2022-08-16] MEDS: PRASUGREL 10 MG TAB PO SCH (12:32)
[2022-08-16] MEDS: PIPERACILLIN-TAZOBACTAM 3.375 GM in SODIUM CHLORIDE 0.9% 100 ML IVPB SCH (12:32)
[2022-08-16] MEDS: PANTOPRAZOLE 40 MG/10 ML VIAL IV SCH (12:33)
[2022-08-16] MEDS: levETIRAcetam IV 500 MG/5 ML VIAL IVP SCH (12:33)
[2022-08-16] MEDS: CHLORHEXIDINE GLUCONATE 15 ML CUP MUCOUS MEM SCH ×2 (12:33→20:11)
[2022-08-16] MEDS: ASPIRIN 81 MG PO SCH (12:33)
--- NOTE | 2022-08-16 13:32 | P.PN ---
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 He was in cardiogenic shock where mechanical support was needed and subsequently the Impella was taken out. August 142021 The patient was seen and evaluated this morning. He is not doing well. Hemodynamically he still requiring vasopressors and currently is on norepinephrine and vasopressin's. He is in acute renal failure. He is not making any urine. He is in sinus mechanism. Beside that he is on dual antiplatelet therapy as well as a statin. From a cardiovascular standpoint of view, we'll continue the current medical regimen. Continue hemodynamic support using vasopressors. The patient might benefit from being transferred into a [facility]. The prognosis is extremely poor August 152022 The patient was seen and evaluated this morning. He continues to be intubated on mechanical ventilation. He continues to be hemodynamically unstable requiring norepinephrine. Vasopressin's has stopped. The right limb acute limb ischemia appears to be slightly better and we were able to obtain a Doppler signal from the anterior tibial and posterior tibial using Doppler. Heparin to be continues. Hemoglobin is stable. He is on dialysis now. The patient was seen and evaluated this morning. Unfortunately he remains unstable requiring norepinephrine to support his pressure. He was also sedation earlier today and he was unable to move the right side. There was a concern about stroke. Computed tomography scan was performed and did not show any acute ischemia. That could be too early at this point. Neurology is on the case. Beside that he continues to be on dialysis. He continues to be on dual antiplatelet therapy and high intensity statin. Overall the prognosis remained extremely poor. I did perform an EKG on him today at bedside that showed ST segment elevation inferiorly and anteriorly. I discussed the case with Dr. Kong and we both agreed that if he is having an evolving stroke at this point proceeding with an angiogram with possible angioplasty could be extremely risky. Otherwise the right foot to remain warm. We were able to obtain a Doppler signal. Meanwhile I'm going to obtain a limited echo to assess for any evidence of deterioration in the left ventricular systolic function or wall motion abnormalities. Further recommendation to follow Assessment Acute anterior ST elevation myocardial infarction Cardiogenic shock Acute renal failure Acute limb ischemia Possible evolving acute stroke Plan Continue dual antiplatelet therapy and high intensity statin Continue hemodynamic support Continue IV heparin Obtain an echocardiogram Further recommendation from the neurology service Objective - Vital Signs Vital signs: Vital Signs Temp 98.0 F 08/16/22 04:00 Pulse 105 H 08/16/22 12:18 Resp 22 08/16/22 12:18 BP 110/56 08/15/22 16:17 Pulse Ox 95 08/16/22 11:45 FiO2 100 08/16/22 12:09 Intake & Output 08/15/22 08/16/22 08/16/22 18:59 06:59 18:59 Intake Total 2151.406 1386.101 430.509 Output Total 2500 0 Balance -486.243 8689.101 430.509 Weight 97 kg 99.2 kg Intake: IV 936 936 78 Pressure bag 36 36 3 Sodium Chloride 0.9% 1, 900 900 75 000 ml @ 75 mls/hr IV . [id number] LEIGH Rx#:[id number] Intake, IV Titration 672.406 450.101 352.509 Amount Heparin Sod,Pork in 0.45% 169.05 250 NaCl 25,000 unit In 0.45 % NaCl 1 250ml.bag @ 10. 57 UNITS/KG/HR 9.999 mls/ hr IV .Q24H LEIGH Rx#: [id number] Norepinephrine 8 mg In 241.590 156.169 29.601 Sodium Chloride 0.9% 250 ml @ 0.03 MCG/KG/MIN 5. 317 mls/hr IV .Q24H LEIGH Rx#:[id number] Vasopressin 60 unit In 27.311 Sodium Chloride 0.9% 150 ml @ 0.03 UNITS/MIN 4.59 mls/hr IV .Q24H LEIGH Rx#: [id number] propofoL 1,000 mg In 234.455 293.932 72.908 Empty Bag 1 bag @ 15 MCG/ KG/MIN 7.348 mls/hr IV . [id number] LEIGH Rx#:[id number] Oral 0 Tube Feeding 183 Hemodialysis 300 Other 60 Output: Urine 0 0 Hemodialysis 2500 Other: Voiding Method Indwelling Catheter Indwelling Catheter # Bowel Movements 1 ABP, PAP, CO, CI - Last Documented Arterial Blood Pressure 91/53 - Labs CBC & Chem 7: 08/16/22 04:27 08/16/22 04:27 Labs: Abnormal Lab Results - Last 24 Hours (Table) 08/15/22 08/15/22 08/15/22 Range/Units 12:45 17:39 23:27 WBC (3.8-10.6) k/uL RBC (4.30-5.90) m/uL Hgb (13.0-17.5) gm/dL Hct (39.0-53.0) % Plt Count (150-450) k/uL Neutrophils # (1.3-7.7) k/uL Lymphocytes # (1.0-4.8) k/uL APTT (22.0-30.0) sec ABG pCO2 (35-45) mmHg ABG pO2 (83-108) mmHg Sodium (137-145) mmol/L Carbon Dioxide (22-30) mmol/L BUN (9-20) mg/dL Creatinine (0.66-1.25) mg/dL Glucose (74-99) mg/dL POC Glucose (mg/dL) 131 H 138 H (70-110) mg/dL Calcium (8.4-10.2) mg/dL Troponin I 15.600 H* (0.000-0.034) ng/mL 08/16/22 08/16/22 08/16/22 Range/Units 04:27 04:27 04:27 WBC 15.3 H (3.8-10.6) k/uL RBC 3.31 L (4.30-5.90) m/uL Hgb 10.0 L (13.0-17.5) gm/dL Hct 30.2 L (39.0-53.0) % Plt Count 124 L (150-450) k/uL Neutrophils # 13.6 H (1.3-7.7) k/uL Lymphocytes # 0.9 L (1.0-4.8) k/uL APTT 49.8 H (22.0-30.0) sec ABG pCO2 (35-45) mmHg ABG pO2 (83-108) mmHg Sodium 133 L (137-145) mmol/L Carbon Dioxide 21 L (22-30) mmol/L BUN 55 H (9-20) mg/dL Creatinine 5.29 H (0.66-1.25) mg/dL Glucose 131 H (74-99) mg/dL POC Glucose (mg/dL) (70-110) mg/dL Calcium 6.8 L (8.4-10.2) mg/dL Troponin I (0.000-0.034) ng/mL 08/16/22 08/16/22 08/16/22 Range/Units 05:45 06:01 11:11 WBC (3.8-10.6) k/uL RBC (4.30-5.90) m/uL Hgb (13.0-17.5) gm/dL Hct (39.0-53.0) % Plt Count (150-450) k/uL Neutrophils # (1.3-7.7) k/uL Lymphocytes # (1.0-4.8) k/uL APTT (22.0-30.0) sec ABG pCO2 33 L (35-45) mmHg ABG pO2 81 L (83-108) mmHg Sodium (137-145) mmol/L Carbon Dioxide (22-30) mmol/L BUN (9-20) mg/dL Creatinine (0.66-1.25) mg/dL Glucose (74-99) mg/dL POC Glucose (mg/dL) 136 H 138 H (70-110) mg/dL Calcium (8.4-10.2) mg/dL Troponin I (0.000-0.034) ng/mL Microbiology - Last 24 Hours (Table) 08/13/22 14:18 Blood Culture - Preliminary Blood 08/13/22 14:14 Blood Culture - Preliminary Blood
[2022-08-16] MEDS: SODIUM CHLORIDE 0.9% 80 ML with fentaNYL (PF) 1,000 MCG IV SCH ×4 (13:57→21:00)
[2022-08-16] MEDS: VASOPRESSIN 60 UNIT in SODIUM CHLORIDE 0.9% 150 ML IV SCH (14:54)
[2022-08-16 18:27] LABS: Glucose,Whole Blood 127 mg/dL (70-110)
[2022-08-16] MEDS: ATORVASTATIN 80 MG TAB PO SCH (20:11)
[2022-08-16 23:49] LABS: Glucose,Whole Blood 137 mg/dL (70-110)
[2022-08-17] MEDS: PIPERACILLIN-TAZOBACTAM 3.375 GM in SODIUM CHLORIDE 0.9% 100 ML IVPB SCH ×2 (00:09→13:49)
[2022-08-17] MEDS: methylPREDNISolone SOD SUCCI 125 MG/2 ML VIAL IV SCH ×4 (00:09→17:31)
[2022-08-17] MEDS: NOREPINEPHRINE 8 MG in SODIUM CHLORIDE 0.9% 250 ML IV SCH ×3 (02:21→14:35)
[2022-08-17] MEDS: IPRATROPIUM-ALBUTEROL 3 ML NEB INHALATION SCH ×6 (04:18→23:17)
[2022-08-17 05:14] LABS: Basophils % (A) 0 %; Eosinophils # (A) 0.1 k/uL (0-0.7); Eosinophils % (A) 1 %; HCT 32.4 % (39.0-53.0); HGB 10.7 gm/dL (13.0-17.5); Lymphocytes % (A) 6 %; MCH 31.2 pg (25.0-35.0); MCHC 32.9 g/dL (31.0-37.0); MCV 94.9 fL (80.0-100.0); Mean Platelet Volume 9.7; Monocytes # (A) 0.8 k/uL (0-1.0); Monocytes % (A) 5 %; Neutrophils % (A) 87 %; Platelet Count 160 k/uL (150-450); RBC 3.42 m/uL (4.30-5.90); RDW 14.6 % (11.5-15.5); WBC 17.2 k/uL (3.8-10.6)
[2022-08-17 05:38] LABS: Glucose,Whole Blood 153 mg/dL (70-110)
[2022-08-17] MEDS: INSULIN ASPART (NovoLOG) 100 UNIT/ML VIAL SQ SCH ×3 (05:46→17:30)
[2022-08-17 06:05] LABS: Calcium 6.8 mg/dL (8.4-10.2); Magnesium 2.4 mg/dL (1.6-2.3); Potassium 5.6 mmol/L (3.5-5.1)
[2022-08-17] MEDS: SODIUM CHLORIDE 0.9% 80 ML with fentaNYL (PF) 1,000 MCG IV SCH ×8 (06:19→16:00)
[2022-08-17 06:29] LABS: ABG Base Excess -7.5 mmol/L; ABG HCO3 20 mmol/L (21-25); ABG Oxygen Saturation 98.9 % (94-97); ABG PCO2 44 mmHg (35-45); ABG PH 7.26 (7.35-7.45); ABG PO2 157 mmHg (83-108); ABG TCO2 21 mmol/L (19-24); Allen Test Performed? Yes
--- NOTE | 2022-08-17 07:16 | XR ---
EXAMINATION TYPE: XR chest 1V portable DATE OF EXAM: 08/17/2022 Comparison: 08/16/2022 Clinical History: 57-year-old male Tube placement Findings: Right IJ catheter tip at the upper right atrium. ET and NG tubes are satisfactory. Left subclavian CV C tip lower SVC. Heart mildly enlarged. Diffuse interstitial vascular density. Worsening bibasilar ae ration. Impression: Interval development of small to moderate bilateral pleural effusions with adjacent atelectasis and/o r consolidation. Ongoing pulmonary vascular congestion.
[2022-08-17] MEDS: METOPROLOL TARTRATE 25 MG TAB PO SCH ×2 (08:10→21:11)
[2022-08-17] MEDS: HEPARIN SOD,PORK IN 0.45% NACL 25,000 UNIT in 0.45% NACL 1 250ML.BAG IV SCH (08:13)
[2022-08-17] MEDS: FORMOTEROL FUMARATE 20 MCG/2 ML NEBU INHALATION SCH ×2 (08:50→19:27)
[2022-08-17] MEDS: BUDESONIDE 1 MG/2 ML NEBU INHALATION SCH ×2 (08:50→19:27)
[2022-08-17] MEDS: PRASUGREL 10 MG TAB PO SCH (09:02)
[2022-08-17] MEDS: CHLORHEXIDINE GLUCONATE 15 ML CUP MUCOUS MEM SCH ×2 (09:02→21:11)
[2022-08-17] MEDS: ASPIRIN 81 MG PO SCH (09:02)
[2022-08-17] MEDS: PANTOPRAZOLE 40 MG/10 ML VIAL IV SCH (09:03)
[2022-08-17] MEDS: levETIRAcetam IV 500 MG/5 ML VIAL IVP SCH (09:03)
--- NOTE | 2022-08-17 09:45 | PN ---
PROGRESS NOTE DATE OF SERVICE: 08/16/2022 CHIEF COMPLAINT: Acute myocardial infarction with cardiogenic shock and acute tubular necrosis. HISTORY OF PRESENT ILLNESS: This gentleman is not doing well. Blood pressure is still running low. Hemoglobin is also slightly low at 10. White count is elevated at 15,300. BUN is 55 and creatinine 5.21 and he is not making any urine. He is being dialyzed. His echocardiogram reveals an ejection fraction of only 25% to 30%. Blood gases revealed pH 7.4 with an O2 of only 81, and CO2 of 33 with a bicarb of 22. PHYSICAL EXAMINATION: GENERAL: He is on the ventilator. Peripheral perfusion does seem to be a little bit better. LOWER EXTREMITIES: Warm. CHEST: Clear. CARDIAC: Demonstrates sinus rhythm. ABDOMEN: Soft. No masses. IMPRESSION: 1. Acute ST-segment elevation myocardial infarction with cardiogenic shock. 2. History of atherosclerotic cardiomyopathy. Heart failure with reduced ejection fraction. 3. Elevated white count. 4. Anemia. 5. Acute tubular necrosis. 6. Metabolic acidosis. PLAN: Continue to follow with Cardiology and Nephrology as well as Intensive Medicine. PROGNOSIS: Poor. The EEG report is pending. MMODL / IJN: [id number] /
--- NOTE | 2022-08-17 10:54 | P.PN ---
Subjective Patient is seen for follow-up for acute kidney injury. Patient remains intubated O2 sats are better today and FiO2 is down to 60%. Patient is sedated. CT of the head was negative. Patient tolerated 2.4 L of ultrafiltration yesterday. He is currently seen on hemodialysis and tolerating treatment. Levo fed is at 0.2 mcg/kg and patient is also on vasopressin He remains severely oliguric. Objective - Vital Signs Vital signs: Vital Signs Temp 98.4 F 08/17/22 04:00 Pulse 73 08/17/22 09:24 Resp 22 08/17/22 09:24 BP 79/44 08/16/22 14:13 Pulse Ox 96 08/17/22 07:15 FiO2 60 08/17/22 09:29 Intake & Output 08/16/22 08/17/22 08/17/22 18:59 06:59 18:59 Intake Total 7052.427 3051.570 626.121 Output Total 2428 0 0 Balance -4275.204 9711.570 626.121 Weight 99.5 kg Intake: IV 78 583 53 Pressure bag 3 33 3 Sodium Chloride 0.9% 1, 75 550 50 000 ml @ 75 mls/hr IV . [id number] [facility] Rx#:[id number] Intake, IV Titration 632.582 570.570 547.121 Amount Heparin Sod,Pork in 0.45% 250 225.929 NaCl 25,000 unit In 0.45 % NaCl 1 250ml.bag @ 10. 57 UNITS/KG/HR 9.999 mls/ hr IV .Q24H [facility] Rx#: [id number] Norepinephrine 8 mg In 163.423 258 228.115 Sodium Chloride 0.9% 250 ml @ 0.03 MCG/KG/MIN 5. 317 mls/hr IV .Q24H [facility] Rx#:[id number] Sodium Chloride 0.9% 80 162.357 ml @ 1 MCG/KG/HR 9.92 mls /hr IV .Q10H5M [facility] with fentaNYL (PF) 1,000 mcg Rx#:[id number] Vasopressin 60 unit In 1.836 Sodium Chloride 0.9% 150 ml @ 0.03 UNITS/MIN 4.59 mls/hr IV .Q24H [facility] Rx#: [id number] propofoL 1,000 mg In 217.323 150.213 93.077 Empty Bag 1 bag @ 15 MCG/ KG/MIN 7.348 mls/hr IV . [id number] [facility] Rx#:[id number] Oral 0 Tube Feeding 236 26 Hemodialysis 300 Other 60 Output: Urine 5 0 0 Hemodialysis 2423 Other: Voiding Method Indwelling Catheter Indwelling Catheter ABP, PAP, CO, CI - Last Documented Arterial Blood Pressure 103/60 - Exam Patient is sedated and on the vent Examination of the heart S1 and S2 Examination of the lungs bilateral breath sounds are heard Abdomen is soft Examination of lower extremities shows 1+ edema bilaterally upper and lower extremities - Labs CBC & Chem 7: 08/17/22 05:00 08/17/22 05:00 Labs: Abnormal Lab Results - Last 24 Hours (Table) 08/16/22 08/16/22 08/16/22 Range/Units 11:11 12:00 18:26 WBC (3.8-10.6) k/uL RBC (4.30-5.90) m/uL Hgb (13.0-17.5) gm/dL Hct (39.0-53.0) % Neutrophils # (1.3-7.7) k/uL APTT (22.0-30.0) sec ABG pH (7.35-7.45) ABG pO2 (83-108) mmHg ABG HCO3 (21-25) mmol/L ABG O2 Saturation (94-97) % Sodium (137-145) mmol/L Potassium (3.5-5.1) mmol/L Chloride (98-107) mmol/L Carbon Dioxide (22-30) mmol/L BUN (9-20) mg/dL Creatinine (0.66-1.25) mg/dL Glucose (74-99) mg/dL POC Glucose (mg/dL) 138 H 127 H (70-110) mg/dL Calcium (8.4-10.2) mg/dL Magnesium (1.6-2.3) mg/dL Troponin I 15.600 H* (0.000-0.034) ng/mL 08/16/22 08/17/22 08/17/22 Range/Units 23:47 05:00 05:00 WBC 17.2 H (3.8-10.6) k/uL RBC 3.42 L (4.30-5.90) m/uL Hgb 10.7 L (13.0-17.5) gm/dL Hct 32.4 L (39.0-53.0) % Neutrophils # 15.0 H (1.3-7.7) k/uL APTT (22.0-30.0) sec ABG pH (7.35-7.45) ABG pO2 (83-108) mmHg ABG HCO3 (21-25) mmol/L ABG O2 Saturation (94-97) % Sodium 133 L (137-145) mmol/L Potassium 5.6 H (3.5-5.1) mmol/L Chloride 96 L (98-107) mmol/L Carbon Dioxide 18 L (22-30) mmol/L BUN 56 H (9-20) mg/dL Creatinine 4.77 H (0.66-1.25) mg/dL Glucose 137 H (74-99) mg/dL POC Glucose (mg/dL) 137 H (70-110) mg/dL Calcium 6.8 L (8.4-10.2) mg/dL Magnesium 2.4 H (1.6-2.3) mg/dL Troponin I (0.000-0.034) ng/mL 08/17/22 08/17/22 08/17/22 Range/Units 05:00 05:36 06:26 WBC (3.8-10.6) k/uL RBC (4.30-5.90) m/uL Hgb (13.0-17.5) gm/dL Hct (39.0-53.0) % Neutrophils # (1.3-7.7) k/uL APTT 52.8 H (22.0-30.0) sec ABG pH 7.26 L (7.35-7.45) ABG pO2 157 H (83-108) mmHg ABG HCO3 20 L (21-25) mmol/L ABG O2 Saturation 98.9 H (94-97) % Sodium (137-145) mmol/L Potassium (3.5-5.1) mmol/L Chloride (98-107) mmol/L Carbon Dioxide (22-30) mmol/L BUN (9-20) mg/dL Creatinine (0.66-1.25) mg/dL Glucose (74-99) mg/dL POC Glucose (mg/dL) 153 H (70-110) mg/dL Calcium (8.4-10.2) mg/dL Magnesium (1.6-2.3) mg/dL Troponin I (0.000-0.034) ng/mL Microbiology - Last 24 Hours (Table) 08/13/22 14:18 Blood Culture - Preliminary Blood 08/13/22 14:14 Blood Culture - Preliminary Blood Assessment and Plan Assessment: 1. Acute kidney injury secondary to ATN secondary to cardiac arrest. Also received IV contrast on 08/11/2022 for cardiac catheterization. Baseline creatinine near 1. Oliguric. No hydronephrosis noted on kidney ultrasound. S jessika creatinine was 7.2 and patient was started on hemodialysis on 08/14/2022. 2. Acute GA status post cardiac catheterization with LAD stent placement. Impella removed 08/12/2022. 3. V. fib arrest s/p amiodarone drip. Cardiology following. 4. Hyperkalemia secondary to acute kidney injury. 5. Metabolic acidosis secondary to acute kidney injury status post bicarb drip. Improved. 6. Severe systolic dysfunction with ejection fraction of 12%. 7. Acute hypoxic respiratory failure currently on the vent Plan: Hemodialysis today with increase UF to 2-3 L as tolerated. Repeat hemodialysis again in a.m. DC IV fluids
--- NOTE | 2022-08-17 10:58 | P.PN ---
Subjective Progress Note Date: 08/17/22 Principal diagnosis: Respiratory failure. Acute hypoxic respiratory failure secondary to acute anterior wall NC and ventricular fibrillation cardiac arrest. This is a 57-year-old white male with known history of hypertension, no previous history of documented coronary artery disease. Patient presented to the ER yesterday with acute onset of retrosternal chest pain scale of 8/10. Pain started about 20 minutes prior to arrival to the ER. Upon arrival the patient was noted to be pale and diaphoretic. Pain actually started with the patient was working in the [employer], and he had a brief episode of almost near syncope. He was also complaining of shortness of breath. Patient was found to have acute myocardial infarction, underwent cardiac catheterization and he was noted to have subtotally occluded proximal LAD. He underwent angioplasty and stenting. Patient actually had successful stenting of the proximal LAD and successful placement of M [place] catheter for hemodynamic support because during his cardiac catheterization, patient had episodes of ventricular fibrillation and tachycardia requiring CPR and multiple cardioversions. Patient was intubated by anesthesia while in the catheterization lab. Patient was found to have also chronically occluded mid RCA and elevated left ventricular end- diastolic pressure patient was transferred to the ICU on mechanical ventilation, and I was asked to see him on consultation. Patient is now on assist control r ate of 20, volume 450 FiO2 40% and PEEP of 5. ABG showed a pO2 of 197 pCO2 45 pH of 7.34 and this was on 70% FiO2. Patient is on propofol at 40 mcg/kg/m he was on 1 mg of Versed which I have discontinued his also on Nimbex at 2 mcg/kg/m norepinephrine at 0.04 mcg/kg/m amiodarone 0.5 mg/m. Patient was on bicarb drip at 50 mL per hour and I cut it down to 25 mL per hour. Patient was also noted t o have acute hyperkalemia and acute kidney injury that seems to be progressively getting worse as I recommended nephrology consultation. Patient is noted to have coffee ground material in the nasogastric tube and he had bloody urine. Heparin was briefly placed on hold by cardiology already. And I am [place] device is being addressed by cardiology today. WBC count is 17.5 hemoglobin is 13.8 PTT is 46.3. Fibrinogen 357, potassium 5.9 bicarb is up to 28 BUN is 30 creatinine 2.19 LDH is 2620 calcium is 7.0 chest x-ray this morning showed mild cardiomegaly and central venous congestion consistent with mild CHF. Echocardiogram on this admission showed ejection fraction of 10% and there is also evidence of mild mitral regurgitation 20, tidal volume 450, FiO2 40%, and PEEP of 5 patient was reevaluated today on 08/13/2022, patient remains in the ICU, intubated and mechanically ventilated. Patient is on assist control rate of 20 tidal volume 450 FiO2 45% and PEEP of 5 ABG showed a pO2 of 108 pCO2 35 pH of 7.47 hence his rate was cut down to 18 and his FiO2 cut down to 40%. the impella was removed by cardiology yesterday, patient is still requiring norepinephrine at 0.12 mcg/kg/m for blood pressure support. Remains on propofol at 50 mcg/kg/m. Patient has very poor minimal urine output and history of functioning is getting much worse. Hence I'm recommending a trial of Lasix 80 mg IV push 1. In the meantime patient will need to be seen by nephrology for his acute kidney injury secondary to hypotension/secondary to acute tubular necrosis. His IV fluids remains at 0.9 /75 mL per hour chest x-ray showed significant improvement in his congestive heart failure. WBC count is 22.9 hemoglobin 13.5. Platelets are 135. Basic metabolic profile and electrolytes are normal however his BUN is up to 54 creatinine is up to 4.35. His initial creatinine on admission was 1.08. Clearly this is consistent with acute kidney injury/acute tubular necrosis. Still concerned about mentation, hence will give the patient a sedation holiday/interruption and assess mental status, if determ ined to have possible anoxic brain injury will likely order a CT of the brain and initiate a neurological consultation Progress note dated 08/14/2022. This is a 57-year-old male who was admitted to the hospital on August 11. He came with chest pain, shortness of breath, and syncope. He is found to have an ST segment elevation myocardial infarction. He went to the catheterization laboratory on August 11, he developed ventricular fibrillation and ventricular tachycardia. He was defibrillated no less than 10 times. He was intubated at that time, and had 2 stents placed to his LAD, and had an Impella device placed. That device was removed the on August 12. He remains on mechanical ventilator, wi th possible anoxic brain injury. He is on by Mrs. control, rate 18, tidal volume 450, FiO2 60%, and PEEP of 5. Blood gases show pO2 of 99, pCO2 38, and pH is 7.35. That was on 70% FiO2. The patient's on saline at 75 mL an hour, propofol at 65 mcg/kg/m, norepinephrine at 21 mcg/m, vasopressin at 0.03 units per minute, fentanyl at 0.5 mcg/kg/h, and tube feedings with Nepro at 10 mL an hour. White count 22.7, hemoglobin 12, hematocrit 35.6, platelet count 107,000. Sodium 136, potassium 4.7, chlorides 104, CO2 20, anion gap 12, BUN 64, creatinine 7.25. AST is 621 ALT is 344. Microbiology sampling has been negative thus far. Chest x-ray shows some mild pulmonary venous congestion. Left subclavian triple-lumen catheter is in good position. There was no pneumothorax. Progress note dated 08/15/2022. 57-year-old male was admitted to the hospital on August 11. He came in with chest pain, shortness of breath, and syncope. He was found to have an ST segment elevation myocardial infarction. He went to the catheterization laboratory on August 11, developed ventricular fibrillation and ventricular tachycardia. He was defibrillated multiple times, maybe 10 or so. He was also intubated at the same time, and had 2 stents placed to his LAD, and, an Impella device placed. That device was removed on August 12. The patient remains on mechanical ventilator. His vent settings include assist control, rate 22, tidal volume 450, FiO2 50%, and PEEP of 5. Blood gases show pO2 of 98, CO2 34, pH 7.41. White count 16.6, hemoglobin 10.7, hematocrit 32, and platelet count 111,000. PTT is 62. Sodium 137, potassium 4, chlorides 101, CO2 21, anion gap 15, BUN 52, creatinine 6.68. Chest x-ray is consistent with interstitial edema. Progress note dated 08/16/2022. 57-year-old male was admitted to the hospital on August 11, chest pain, shortness breath, and syncope. The patient was found to have an ST segment elevation myocardial infarction. He went to the catheterization laboratory on August 11, developed ventricular fibrillation ventricular tachycardia, defibrillated multiple times, and was intubated at the same time, and had 2 stents placed in his LAD. In addition, for a day, he had a Impella device, that was removed the following day. Currently, he remains on the mechanical ventilator. His settings include assist control, rate 22, tidal volume 450, FiO2 50%, PEEP of 5. Blood gases show pO2 of 81, pCO2 33, and a pH is 7.42. The patient's on propofol at 30 mcg/kg/m, 0.9 at 75 mL an hour, heparin via weightbase protocol, and norepinephrine, at 3 mcg/m. Tube feedings on hold for possible cardiac test today. White count 15.3, hemoglobin 10, hematocrit 30.2, and platelet count 124,000. Sodium is 133, potassium 4, chlorides 99, CO2 21, anion gap 13, BUN 55, and creatinine 5.29. Calcium is 6.8. Microbiologic studies are negative. Chest x-rays essentially unchanged. Progress note dated 08/17/2022. This is a 57-year-old male who was admitted to the hospital August 11, with chest pain, shortness and syncope. The patient was diagnosed as having a STEMI, and went to the catheterization laboratory on August 11, where he developed ventricular fibrillation and tachycardia, and was defibrillated/cardioverted, multiple times. The patient was intubated at that time, he remains on the mechanical ventilator. He had 2 stents placed in his LAD. Currently, he's on the volume assist control, rate 22, tidal volume 450, FiO2 60%, PEEP of 5. Blood gases show pO2 157, pCO2 44, and a pH of 7.26. This was on 80% FiO2. The patient had hemodialysis yesterday, 2.1 L was removed. The patient remains on norepinephrine at 22 mcg/m, vasopressin at 0.03 units per minute, propofol at 50 mcg/kg/m, fentanyl 1 mcg/kg/h, heparin, the weight based protocol, and vital HD, at goal, which is 26 mL an hour. Patient's also getting saline at 50 mL an hour, which will be discontinued. White count 17.2, hemoglobin 10.7, hematocrit 32.4, with a normal platelet count. PTT is 52.8. Sodium 133, potassium 5.6, chlorides 96, CO2 18, anion gap 19, BUN 56, and creatinine 4.77. Blood cultures have been negative. Chest x-ray shows small bilateral effusions with some atelectasis and/or consolidation. Objective - Vital Signs Vital signs: Vital Signs Temp 98.4 F 08/17/22 04:00 Pulse 73 08/17/22 09:24 Resp 22 08/17/22 09:24 BP 79/44 08/16/22 14:13 Pulse Ox 96 08/17/22 07:15 FiO2 60 08/17/22 09:29 Intake & Output 08/16/22 08/17/22 08/17/22 18:59 06:59 18:59 Intake Total 4133.210 3718.570 626.121 Output Total 2428 0 0 Balance -7712.162 8348.570 626.121 Weight 99.5 kg Intake: IV 78 583 53 Pressure bag 3 33 3 Sodium Chloride 0.9% 1, 75 550 50 000 ml @ 75 mls/hr IV . [id number] [facility] Rx#:[id number] Intake, IV Titration 632.582 570.570 547.121 Amount Heparin Sod,Pork in 0.45% 250 225.929 NaCl 25,000 unit In 0.45 % NaCl 1 250ml.bag @ 10. 57 UNITS/KG/HR 9.999 mls/ hr IV .Q24H [facility] Rx#: [id number] Norepinephrine 8 mg In 163.423 258 228.115 Sodium Chloride 0.9% 250 ml @ 0.03 MCG/KG/MIN 5. 317 mls/hr IV .Q24H [facility] Rx#:[id number] Sodium Chloride 0.9% 80 162.357 ml @ 1 MCG/KG/HR 9.92 mls /hr IV .Q10H5M [facility] with fentaNYL (PF) 1,000 mcg Rx#:[id number] Vasopressin 60 unit In 1.836 Sodium Chloride 0.9% 150 ml @ 0.03 UNITS/MIN 4.59 mls/hr IV .Q24H [facility] Rx#: [id number] propofoL 1,000 mg In 217.323 150.213 93.077 Empty Bag 1 bag @ 15 MCG/ KG/MIN 7.348 mls/hr IV . [id number] [facility] Rx#:[id number] Oral 0 Tube Feeding 236 26 Hemodialysis 300 Other 60 Output: Urine 5 0 0 Hemodialysis 2423 Other: Voiding Method Indwelling Catheter Indwelling Catheter ABP, PAP, CO, CI - Last Documented Arterial Blood Pressure 103/60 - Exam No acute distress, sedated, with an orally placed endotracheal tube and NG tube. HEENT examination is grossly unremarkable. Neck supple. Full range of motion. No adenopathy thyromegaly or neck vein distention. Left subclavian triple-lumen catheter is noted. Cardiovascular examination reveals regular rhythm rate. S1-S2 normal. No S3 or S4. No discernible murmur noted. Heart rate 74 bpm. Heart sounds are distant. Lungs reveal scattered mild rhonchi. Breath sounds equal. No wheezes. Saturations are 95%. Abdomen soft, without bowel sounds. No masses or tenderness. Extremities are intact. No cyanosis clubbing or edema. Skin is without rash or lesion. Neurologic examination cannot be adequately assessed at this time. - Labs CBC & Chem 7: 08/17/22 05:00 08/17/22 05:00 Labs: Abnormal Lab Results - Last 24 Hours (Table) 08/16/22 08/16/22 08/16/22 Range/Units 11:11 12:00 18:26 WBC (3.8-10.6) k/uL RBC (4.30-5.90) m/uL Hgb (13.0-17.5) gm/dL Hct (39.0-53.0) % Neutrophils # (1.3-7.7) k/uL APTT (22.0-30.0) sec ABG pH (7.35-7.45) ABG pO2 (83-108) mmHg ABG HCO3 (21-25) mmol/L ABG O2 Saturation (94-97) % Sodium (137-145) mmol/L Potassium (3.5-5.1) mmol/L Chloride (98-107) mmol/L Carbon Dioxide (22-30) mmol/L BUN (9-20) mg/dL Creatinine (0.66-1.25) mg/dL Glucose (74-99) mg/dL POC Glucose (mg/dL) 138 H 127 H (70-110) mg/dL Calcium (8.4-10.2) mg/dL Magnesium (1.6-2.3) mg/dL Troponin I 15.600 H* (0.000-0.034) ng/mL 08/16/22 08/17/22 08/17/22 Range/Units 23:47 05:00 05:00 WBC 17.2 H (3.8-10.6) k/uL RBC 3.42 L (4.30-5.90) m/uL Hgb 10.7 L (13.0-17.5) gm/dL Hct 32.4 L (39.0-53.0) % Neutrophils # 15.0 H (1.3-7.7) k/uL APTT (22.0-30.0) sec ABG pH (7.35-7.45) ABG pO2 (83-108) mmHg ABG HCO3 (21-25) mmol/L ABG O2 Saturation (94-97) % Sodium 133 L (137-145) mmol/L Potassium 5.6 H (3.5-5.1) mmol/L Chloride 96 L (98-107) mmol/L Carbon Dioxide 18 L (22-30) mmol/L BUN 56 H (9-20) mg/dL Creatinine 4.77 H (0.66-1.25) mg/dL Glucose 137 H (74-99) mg/dL POC Glucose (mg/dL) 137 H (70-110) mg/dL Calcium 6.8 L (8.4-10.2) mg/dL Magnesium 2.4 H (1.6-2.3) mg/dL Troponin I (0.000-0.034) ng/mL 08/17/22 08/17/22 08/17/22 Range/Units 05:00 05:36 06:26 WBC (3.8-10.6) k/uL RBC (4.30-5.90) m/uL Hgb (13.0-17.5) gm/dL Hct (39.0-53.0) % Neutrophils # (1.3-7.7) k/uL APTT 52.8 H (22.0-30.0) sec ABG pH 7.26 L (7.35-7.45) ABG pO2 157 H (83-108) mmHg ABG HCO3 20 L (21-25) mmol/L ABG O2 Saturation 98.9 H (94-97) % Sodium (137-145) mmol/L Potassium (3.5-5.1) mmol/L Chloride (98-107) mmol/L Carbon Dioxide (22-30) mmol/L BUN (9-20) mg/dL Creatinine (0.66-1.25) mg/dL Glucose (74-99) mg/dL POC Glucose (mg/dL) 153 H (70-110) mg/dL Calcium (8.4-10.2) mg/dL Magnesium (1.6-2.3) mg/dL Troponin I (0.000-0.034) ng/mL Microbiology - Last 24 Hours (Table) 08/13/22 14:18 Blood Culture - Preliminary Blood 08/13/22 14:14 Blood Culture - Preliminary Blood Assessment and Plan Assessment: Acute hypoxemic respiratory failure, secondary to an anterior wall ST segment elevation myocardial infarction, status post stenting of the LAD 2, and placement of a Impella device. Status post intubation mechanical ventilation for respiratory failure, 08/11/2022. Cardiogenic shock. Acute kidney injury secondary to ATN, currently receiving intermittent hemodialysis. Ventricular fibrillation arrest, status post multiple defibrillations and amiodarone. Acute metabolic acidosis. Severe systolic dysfunction, with an ejection fraction of 12%. Probable anoxic brain injury. Acute hyperkalemia secondary to acute kidney injury. Plan: Plan dated 08/14/2022. The patient is seen today, in room 252. Patient is being followed by neurology. Labs, x-rays, medications are reviewed. The patient's overall prognosis remains very tenuous. The patient continues to be a full code. A left subclavian triple lumen catheter was placed today. We will continue to follow make recommendations along the way. Prognosis is guarded. Plan dated 08/15/2022. The patient is seen today again in room 252. The patient will receive hemodialysis today. Tube feedings are hold, but will be resumed, with vital high protein at 20 mL an hour. The fentanyl drip has been discontinued. We will attempted daily interruption of sedation today. The patient remains on propofol at 30 mcg/kg/m, norepinephrine at 14 mcg/m, heparin via weightbase protocol, vasopressin at 0.03 units per minute, and saline at 75 mL an hour. The patient may not be ready for a spontaneous breathing trial. We will contin ue to follow. Labs, x-rays, and medications are all reviewed. Prognosis is certainly guarded. Plan dated 08/16/2022. The patient is seen again today in room 253. The patient underwent hemodialysis yesterday. 2.5 L was removed. The chest x-ray looks about the same. Oxygenation is reasonable. The patient remains on propofol, and IV heparin, and a small amount of norepinephrine at 3 mcg/m. The patient had daily interruption of sedation today. Unfortunately, the patient's mental status is very poor, the patient has guppy breathing, and does not respond. Labs, x-rays, medications are all reviewed. The patient's overall prognosis remains very poor. We will continue to follow. Plan dated 08/17/2022. The patient is again seen today in room 250. The patient remains on norepinephrine, and vasopressin, and propofol. Any attempts to lessen his sedation, causes respiratory distress. The patient is also on fentanyl, at 1 mcg/kg/h. Arterial blood gases show a mild to moderate metabolic acidosis. The patient remains on tube feedings, at goal. Labs, x-rays, and medications are a ll reviewed. The patient's overall prognosis remains very poor. Apparently the family would like to be with me tomorrow. We will continue to follow make recommendations along the way. If they want to continue life support, and tracheostomy and PEG tube should be done as soon as possible. Time with Patient: Greater than 30
--- NOTE | 2022-08-17 11:28 | P.PN ---
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 He was in cardiogenic shock where mechanical support was needed and subsequently the Impella was taken out. August 142021 The patient was seen and evaluated this morning. He is not doing well. Hemodynamically he still requiring vasopressors and currently is on norepinephrine and vasopressin's. He is in acute renal failure. He is not making any urine. He is in sinus mechanism. Beside that he is on dual antiplatelet therapy as well as a statin. From a cardiovascular standpoint of view, we'll continue the current medical regimen. Continue hemodynamic support using vasopressors. The patient might benefit from being transferred into a [facility]. The prognosis is extremely poor August 152022 The patient was seen and evaluated this morning. He continues to be intubated on mechanical ventilation. He continues to be hemodynamically unstable requiring norepinephrine. Vasopressin's has stopped. The right limb acute limb ischemia appears to be slightly better and we were able to obtain a Doppler signal from the anterior tibial and posterior tibial using Doppler. Heparin to be continues. Hemoglobin is stable. He is on dialysis now. The patient was seen and evaluated this morning. Unfortunately he remains unstable requiring norepinephrine to support his pressure. He was also sedation earlier today and he was unable to move the right side. There was a concern about stroke. Computed tomography scan was performed and did not show any acute ischemia. That could be too early at this point. Neurology is on the case. Beside that he continues to be on dialysis. He continues to be on dual antiplatelet therapy and high intensity statin. Overall the prognosis remained extremely poor. I did perform an EKG on him today at bedside that showed ST segment elevation inferiorly and anteriorly. I discussed the case with Dr. Kong and we both agreed that if he is having an evolving stroke at this point proceeding with an angiogram with possible angioplasty could be extremely risky. Otherwise the right foot to remain warm. We were able to obtain a Doppler signal. Meanwhile I'm going to obtain a limited echo to assess for any evidence of deterioration in the left ventricular systolic function or wall motion abnormalities. Further recommendation to follow August 162022 The patient was seen and evaluated this morning. He remains intubated on mechanical ventilation. He remains on dialysis. He remains hemodynamically unstable and now requiring 2 vasopressors was norepinephrine and vasopressin's. Overall the prognosis is poor. He is not making any urine at this point. The chest x-ray was reviewed and showed bilateral pleural effusion. Neurology is on the case regarding possible toxic encephalopathy/stroke. There will be in family meeting later on today to decide code of the patient. Overall the prognosis is very poor. He continues to be on heparin. He continues to be on dual antiplatelet therapy. The echo showed severe LV dysfunction definitely not worse compared to before with possible LV thrombus. Assessment Acute anterior ST elevation myocardial infarction Cardiogenic shock Acute renal failure Acute limb ischemia Possible evolving acute stroke LV thrombus Plan Continue dual antiplatelet therapy and high intensity statin Continue hemodynamic support Continue IV heparin Further recommendation to follow Objective - Vital Signs Vital signs: Vital Signs Temp 98.4 F 08/17/22 04:00 Pulse 73 08/17/22 09:24 Resp 22 08/17/22 09:24 BP 79/44 08/16/22 14:13 Pulse Ox 96 08/17/22 07:15 FiO2 60 08/17/22 09:29 Intake & Output 08/16/22 08/17/22 08/17/22 18:59 06:59 18:59 Intake Total 6208.250 5693.570 626.121 Output Total 2428 0 0 Balance -5836.835 6962.570 626.121 Weight 99.5 kg Intake: IV 78 583 53 Pressure bag 3 33 3 Sodium Chloride 0.9% 1, 75 550 50 000 ml @ 75 mls/hr IV . [id number] LEIGH Rx#:[id number] Intake, IV Titration 632.582 570.570 547.121 Amount Heparin Sod,Pork in 0.45% 250 225.929 NaCl 25,000 unit In 0.45 % NaCl 1 250ml.bag @ 10. 57 UNITS/KG/HR 9.999 mls/ hr IV .Q24H LEIGH Rx#: [id number] Norepinephrine 8 mg In 163.423 258 228.115 Sodium Chloride 0.9% 250 ml @ 0.03 MCG/KG/MIN 5. 317 mls/hr IV .Q24H LEIGH Rx#:[id number] Sodium Chloride 0.9% 80 162.357 ml @ 1 MCG/KG/HR 9.92 mls /hr IV .Q10H5M LEIGH with fentaNYL (PF) 1,000 mcg Rx#:[id number] Vasopressin 60 unit In 1.836 Sodium Chloride 0.9% 150 ml @ 0.03 UNITS/MIN 4.59 mls/hr IV .Q24H LEIGH Rx#: [id number] propofoL 1,000 mg In 217.323 150.213 93.077 Empty Bag 1 bag @ 15 MCG/ KG/MIN 7.348 mls/hr IV . [id number] LEIGH Rx#:[id number] Oral 0 Tube Feeding 236 26 Hemodialysis 300 Other 60 Output: Urine 5 0 0 Hemodialysis 2423 Other: Voiding Method Indwelling Catheter Indwelling Catheter ABP, PAP, CO, CI - Last Documented Arterial Blood Pressure 103/60 - Labs CBC & Chem 7: 08/17/22 05:00 08/17/22 05:00 Labs: Abnormal Lab Results - Last 24 Hours (Table) 08/16/22 08/16/22 08/16/22 Range/Units 12:00 18:26 23:47 WBC (3.8-10.6) k/uL RBC (4.30-5.90) m/uL Hgb (13.0-17.5) gm/dL Hct (39.0-53.0) % Neutrophils # (1.3-7.7) k/uL APTT (22.0-30.0) sec ABG pH (7.35-7.45) ABG pO2 (83-108) mmHg ABG HCO3 (21-25) mmol/L ABG O2 Saturation (94-97) % Sodium (137-145) mmol/L Potassium (3.5-5.1) mmol/L Chloride (98-107) mmol/L Carbon Dioxide (22-30) mmol/L BUN (9-20) mg/dL Creatinine (0.66-1.25) mg/dL Glucose (74-99) mg/dL POC Glucose (mg/dL) 127 H 137 H (70-110) mg/dL Calcium (8.4-10.2) mg/dL Magnesium (1.6-2.3) mg/dL Troponin I 15.600 H* (0.000-0.034) ng/mL 08/17/22 08/17/22 08/17/22 Range/Units 05:00 05:00 05:00 WBC 17.2 H (3.8-10.6) k/uL RBC 3.42 L (4.30-5.90) m/uL Hgb 10.7 L (13.0-17.5) gm/dL Hct 32.4 L (39.0-53.0) % Neutrophils # 15.0 H (1.3-7.7) k/uL APTT 52.8 H (22.0-30.0) sec ABG pH (7.35-7.45) ABG pO2 (83-108) mmHg ABG HCO3 (21-25) mmol/L ABG O2 Saturation (94-97) % Sodium 133 L (137-145) mmol/L Potassium 5.6 H (3.5-5.1) mmol/L Chloride 96 L (98-107) mmol/L Carbon Dioxide 18 L (22-30) mmol/L BUN 56 H (9-20) mg/dL Creatinine 4.77 H (0.66-1.25) mg/dL Glucose 137 H (74-99) mg/dL POC Glucose (mg/dL) (70-110) mg/dL Calcium 6.8 L (8.4-10.2) mg/dL Magnesium 2.4 H (1.6-2.3) mg/dL Troponin I (0.000-0.034) ng/mL 08/17/22 08/17/22 Range/Units 05:36 06:26 WBC (3.8-10.6) k/uL RBC (4.30-5.90) m/uL Hgb (13.0-17.5) gm/dL Hct (39.0-53.0) % Neutrophils # (1.3-7.7) k/uL APTT (22.0-30.0) sec ABG pH 7.26 L (7.35-7.45) ABG pO2 157 H (83-108) mmHg ABG HCO3 20 L (21-25) mmol/L ABG O2 Saturation 98.9 H (94-97) % Sodium (137-145) mmol/L Potassium (3.5-5.1) mmol/L Chloride (98-107) mmol/L Carbon Dioxide (22-30) mmol/L BUN (9-20) mg/dL Creatinine (0.66-1.25) mg/dL Glucose (74-99) mg/dL POC Glucose (mg/dL) 153 H (70-110) mg/dL Calcium (8.4-10.2) mg/dL Magnesium (1.6-2.3) mg/dL Troponin I (0.000-0.034) ng/mL Microbiology - Last 24 Hours (Table) 08/13/22 14:18 Blood Culture - Preliminary Blood 08/13/22 14:14 Blood Culture - Preliminary Blood
[2022-08-17 11:56] LABS: Glucose,Whole Blood 115 mg/dL (70-110)
--- NOTE | 2022-08-17 12:47 | P.PN ---
Subjective Progress Note Date: 08/17/22 Patient seen at bedside and according that the patient nurse patient troponin has been the elevated and is continuing on the heparin drip. Patient is on IV propofol and IV fentanyl. He is on dialysis. Objective - Vital Signs Vital signs: Vital Signs Temp 98.4 F 08/17/22 04:00 Pulse 75 08/17/22 11:36 Resp 22 08/17/22 11:36 BP 79/44 08/16/22 14:13 Pulse Ox 96 08/17/22 07:15 FiO2 60 08/17/22 11:27 Intake & Output 08/16/22 08/17/22 08/17/22 18:59 06:59 18:59 Intake Total 4047.736 3934.570 875.161 Output Total 2428 0 0 Balance -7417.722 5811.570 875.161 Weight 99.5 kg Intake: IV 78 583 53 Pressure bag 3 33 3 Sodium Chloride 0.9% 1, 75 550 50 000 ml @ 75 mls/hr IV . [id number] LEIGH Rx#:[id number] Intake, IV Titration 632.582 570.570 796.161 Amount Heparin Sod,Pork in 0.45% 250 225.929 NaCl 25,000 unit In 0.45 % NaCl 1 250ml.bag @ 10. 57 UNITS/KG/HR 9.999 mls/ hr IV .Q24H LEIGH Rx#: [id number] Norepinephrine 8 mg In 163.423 258 380.812 Sodium Chloride 0.9% 250 ml @ 0.03 MCG/KG/MIN 5. 317 mls/hr IV .Q24H LEIGH Rx#:[id number] Sodium Chloride 0.9% 80 162.357 ml @ 1 MCG/KG/HR 9.92 mls /hr IV .Q10H5M LEIGH with fentaNYL (PF) 1,000 mcg Rx#:[id number] Vasopressin 60 unit In 1.836 Sodium Chloride 0.9% 150 ml @ 0.03 UNITS/MIN 4.59 mls/hr IV .Q24H LEIGH Rx#: [id number] propofoL 1,000 mg In 217.323 150.213 189.420 Empty Bag 1 bag @ 15 MCG/ KG/MIN 7.348 mls/hr IV . [id number] LEIGH Rx#:[id number] Oral 0 Tube Feeding 236 26 Hemodialysis 300 Other 60 Output: Urine 5 0 0 Hemodialysis 2423 Other: Voiding Method Indwelling Catheter Indwelling Catheter ABP, PAP, CO, CI - Last Documented Arterial Blood Pressure 103/60 - Exam GENERAL: The patient is lying in bed and does not appear in acute distress. NEUROLOGICAL: Limited because of condition and sedation (IV propofol 50mcg/kg/min and Fentanyl 1mcg/kg/hr). Higher mental function: Is comatose GCS 3 ( E1, VT1, M1). Cranial nerves: The pupils are 2mm round, equal and reactive to light. +ve corneal reflex on the left. Positive weak gag. Otherwise no occulocephalic reflex. No facial weakness. Not breathing over the vent. Motor: The strength is hard to assess but no movement noted throughout. No spontaneous movement. Normal bulk. Decrease tone throughout. Cerebellum: Unable to assess. Sensation: Unable to assess light touch but no withdrawal or grimaces to painful stimuli. - Labs CBC & Chem 7: 08/17/22 05:00 08/17/22 05:00 Labs: Abnormal Lab Results - Last 24 Hours (Table) 08/16/22 08/16/22 08/16/22 Range/Units 12:00 18:26 23:47 WBC (3.8-10.6) k/uL RBC (4.30-5.90) m/uL Hgb (13.0-17.5) gm/dL Hct (39.0-53.0) % Neutrophils # (1.3-7.7) k/uL APTT (22.0-30.0) sec ABG pH (7.35-7.45) ABG pO2 (83-108) mmHg ABG HCO3 (21-25) mmol/L ABG O2 Saturation (94-97) % Sodium (137-145) mmol/L Potassium (3.5-5.1) mmol/L Chloride (98-107) mmol/L Carbon Dioxide (22-30) mmol/L BUN (9-20) mg/dL Creatinine (0.66-1.25) mg/dL Glucose (74-99) mg/dL POC Glucose (mg/dL) 127 H 137 H (70-110) mg/dL Calcium (8.4-10.2) mg/dL Magnesium (1.6-2.3) mg/dL Troponin I 15.600 H* (0.000-0.034) ng/mL 08/17/22 08/17/22 08/17/22 Range/Units 05:00 05:00 05:00 WBC 17.2 H (3.8-10.6) k/uL RBC 3.42 L (4.30-5.90) m/uL Hgb 10.7 L (13.0-17.5) gm/dL Hct 32.4 L (39.0-53.0) % Neutrophils # 15.0 H (1.3-7.7) k/uL APTT 52.8 H (22.0-30.0) sec ABG pH (7.35-7.45) ABG pO2 (83-108) mmHg ABG HCO3 (21-25) mmol/L ABG O2 Saturation (94-97) % Sodium 133 L (137-145) mmol/L Potassium 5.6 H (3.5-5.1) mmol/L Chloride 96 L (98-107) mmol/L Carbon Dioxide 18 L (22-30) mmol/L BUN 56 H (9-20) mg/dL Creatinine 4.77 H (0.66-1.25) mg/dL Glucose 137 H (74-99) mg/dL POC Glucose (mg/dL) (70-110) mg/dL Calcium 6.8 L (8.4-10.2) mg/dL Magnesium 2.4 H (1.6-2.3) mg/dL Troponin I (0.000-0.034) ng/mL 08/17/22 08/17/22 08/17/22 Range/Units 05:36 06:26 11:55 WBC (3.8-10.6) k/uL RBC (4.30-5.90) m/uL Hgb (13.0-17.5) gm/dL Hct (39.0-53.0) % Neutrophils # (1.3-7.7) k/uL APTT (22.0-30.0) sec ABG pH 7.26 L (7.35-7.45) ABG pO2 157 H (83-108) mmHg ABG HCO3 20 L (21-25) mmol/L ABG O2 Saturation 98.9 H (94-97) % Sodium (137-145) mmol/L Potassium (3.5-5.1) mmol/L Chloride (98-107) mmol/L Carbon Dioxide (22-30) mmol/L BUN (9-20) mg/dL Creatinine (0.66-1.25) mg/dL Glucose (74-99) mg/dL POC Glucose (mg/dL) 153 H 115 H (70-110) mg/dL Calcium (8.4-10.2) mg/dL Magnesium (1.6-2.3) mg/dL Troponin I (0.000-0.034) ng/mL Microbiology - Last 24 Hours (Table) 08/13/22 14:18 Blood Culture - Preliminary Blood 08/13/22 14:14 Blood Culture - Preliminary Blood Assessment and Plan Assessment: * Status post witnessed cardiac arrest in [employer] with downtime of around 10 minutes * Encephalopathy, likely anoxic with superimposed sedation (IV Propofol and Fentanyl) toxic metabolic encephalopathy from causes as below. * Acute STEMI, status post cardiac cath and cardiac stenting and currently has troponins that is trending up * Acute kidney injury due to cardiac arrest, nephrology following * Ventilator-dependent respiratory failure, on mechanical ventilation. * High fever, possible pneumonia. * Likely right ischemic limb * Hypertension * Tobacco use * Previous history of alcoholism * Obesity Plan: * CT head showed no acute intracranial process. * Repeat CT head on 08/16/22: No acute intracranial hemorrhage or midline shift. No significant change from prior CT. Patient had the CT since when the sedation wore off the nurse felt he moved the left side briefly spontaneously and not the right side but did to painful stimuli E did not move any of her extremities. * EEG: It is reported as background slowing and disorganization suggestive of encephalopathy of moderate to severe degree. Presence of intermittent high amplitude, rhythmic frontally predominant delta slowing was seen with sporadic, multi focal, sharply contoured wave. This may suggest underlying convulsive tendencies. Suggest prolonged EEG for further evaluation. * Currently the patient is on Keppra 500 mg IV daily started by Dr. Chao. * 2.5 hour EEG completed on 08/15/22: pending official report. * CTA of the neck from 05/21/2019 showed no stenosis. * 2-D echo revealed severe left-ventricular systolic dysfunction secondary to e xtensive myocardial infarction in LAD distribution. EF is not mentioned. Impella catheter in LVOT. Mild MR, dilated right ventricle, mild left atrial dilation. * Continue aspirin, Lipitor and Effient. * Nephrology is on board. She is requiring dialysis Patient condition is critical. Overall condition appears poor. It appears ICU has a meeting with the family tomorrow. I discussed with the patient's nurse. Time with Patient: Less than 30
--- NOTE | 2022-08-17 13:52 | US ---
EXAMINATION TYPE: US arterial LE single level DATE OF EXAM: 08/14/2022 10:58 AM CLINICAL INDICATION: Male, 57 years old with history of pulseless right foot; Rt leg Doppler only per RN History of: Smoker: Current Smoker Hypertension: Yes Diabetic: No Hyperlipidemia: No TIA/CVA: No SD: Yes Vascular Ulcers: No Gangrene: No Doppler Waveforms: Right: Unable to obtain Right Brachial Pressure: not taken Ankle-Brachial Indices: Right: unable to obtain due to no pluses Toe Brachial Indices: Right: unable to obtain due to no pluses limited exam due to no pedal pulses palpated on right side, unable to obtain rt PT or DP arterial wav eforms, Left leg not interrogated as per RN consult IMPRESSION: As above. No pulse identified to obtain SANG and TBI used. Occluded stent needs to be con sidered. Follow-up strongly advised.
[2022-08-17] MEDS: SODIUM CHLORIDE 0.9% 1,000 ML in EMPTY BAG 1 BAG IV SCH (14:17)
[2022-08-17 17:31] LABS: Glucose,Whole Blood 121 mg/dL (70-110)
[2022-08-17] MEDS: VASOPRESSIN 60 UNIT in SODIUM CHLORIDE 0.9% 150 ML IV SCH (19:58)
[2022-08-17] MEDS: ATORVASTATIN 80 MG TAB PO SCH (21:11)
[2022-08-17 23:27] LABS: Glucose,Whole Blood 134 mg/dL (70-110)
[2022-08-18] MEDS: INSULIN ASPART (NovoLOG) 100 UNIT/ML VIAL SQ SCH ×3 (00:10→12:28)
[2022-08-18] MEDS: PIPERACILLIN-TAZOBACTAM 3.375 GM in SODIUM CHLORIDE 0.9% 100 ML IVPB SCH (00:17)
[2022-08-18] MEDS: methylPREDNISolone SOD SUCCI 125 MG/2 ML VIAL IV SCH ×2 (00:17→05:58)
[2022-08-18 00:32] VITALS: TEMP 98.1
[2022-08-18] MEDS: SODIUM CHLORIDE 0.9% 80 ML with fentaNYL (PF) 1,000 MCG IV SCH ×2 (01:03)
--- NOTE | 2022-08-18 01:39 | PN ---
PROGRESS NOTE CHIEF COMPLAINT: STEMI with a cardiac arrest. HISTORY OF PRESENT ILLNESS: This gentleman's condition is still quite unstable. He has been seen by Neurology. 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 He continues to have no urinary output. His cardiac output remains poor. PHYSICAL EXAMINATION: LUNGS: He is on a ventilator. Breath sounds are heard bilaterally. CARDIAC: Demonstrates what sounds like sinus rhythm. ABDOMEN: Soft. IMPRESSION: STEMI followed by cardiac arrest, acute tubular necrosis, and anoxic brain injury. PLAN: Continue supportive care in hopes that there will be some improvement in his neurologic and renal function. MMODL / IJN: [id number] /
[2022-08-18] MEDS: NOREPINEPHRINE 8 MG in SODIUM CHLORIDE 0.9% 250 ML IV SCH (02:31)
[2022-08-18] MEDS: IPRATROPIUM-ALBUTEROL 3 ML NEB INHALATION SCH ×2 (03:16→08:20)
[2022-08-18 05:41] LABS: ABG Base Excess -3.3 mmol/L; ABG HCO3 23 mmol/L (21-25); ABG Oxygen Saturation 94.8 % (94-97); ABG PCO2 46 mmHg (35-45); ABG PH 7.31 (7.35-7.45); ABG PO2 81 mmHg (83-108); ABG TCO2 24 mmol/L (19-24)
[2022-08-18 05:43] LABS: Allen Test Performed? no
[2022-08-18] MEDS: HEPARIN SOD,PORK IN 0.45% NACL 25,000 UNIT in 0.45% NACL 1 250ML.BAG IV SCH (05:54)
[2022-08-18 06:10] LABS: Glucose,Whole Blood 147 mg/dL (70-110)
--- NOTE | 2022-08-18 08:09 | XR ---
EXAMINATION TYPE: XR chest 1V portable DATE OF EXAM: 08/18/2022 CLINICAL HISTORY: Difficulty breathing progress study. TECHNIQUE: Single AP portable supine view of the chest is obtained. COMPARISON: Chest x-ray from one day earlier and older studies. FINDINGS: Stable endotracheal and orogastric tubes. Stable left subclavian central venous catheter. Stable large bore right internal jugular catheter. Persistent cardiomegaly with moderate central vascular congestion and small to moderate-size bilatera l pleural effusions. No pneumothorax seen bilaterally. Osseous structures are intact. IMPRESSION: CHF exacerbation felt present. Correlate clinically. No significant change from one day e elizabeth.
[2022-08-18] MEDS: BUDESONIDE 1 MG/2 ML NEBU INHALATION SCH (08:20)
[2022-08-18] MEDS: FORMOTEROL FUMARATE 20 MCG/2 ML NEBU INHALATION SCH (08:20)
[2022-08-18 08:42] LABS: Calcium 7.6 mg/dL (8.4-10.2); Potassium 5.1 mmol/L (3.5-5.1)
[2022-08-18] MEDS: METOPROLOL TARTRATE 25 MG TAB PO SCH (08:44)
[2022-08-18] MEDS: PRASUGREL 10 MG TAB PO SCH (08:49)
[2022-08-18] MEDS: ASPIRIN 81 MG PO SCH (08:49)
[2022-08-18] MEDS: levETIRAcetam IV 500 MG/5 ML VIAL IVP SCH (08:49)
[2022-08-18] MEDS: PANTOPRAZOLE 40 MG/10 ML VIAL IV SCH (08:49)
[2022-08-18] MEDS: CHLORHEXIDINE GLUCONATE 15 ML CUP MUCOUS MEM SCH (08:49)
[2022-08-18] MEDS ORDERED: MORPHINE SULFATE 4 MG/ML SYRINGE IV PRN (09:34)
[2022-08-18] MEDS ORDERED: SCOPOLAMINE 1 MG/72 HR PATCH TRANSDERM SCH (09:45)
[2022-08-18] MEDS: ATROPINE OPHTH SOLN 1% 5ML BTL SUBLINGUAL PRN ×2 (10:15→23:59)
[2022-08-18] MEDS: MORPHINE SULFATE (100 MG/2 ML) 100 MG in SODIUM CHLORIDE 0.9% 100 ML IV SCH ×2 (10:15→20:51)
--- NOTE | 2022-08-18 10:28 | P.PN ---
Subjective Progress Note Date: 08/18/22 Principal diagnosis: Respiratory failure. Acute hypoxic respiratory failure secondary to acute anterior wall MN and ventricular fibrillation cardiac arrest. This is a 57-year-old white male with known history of hypertension, no previous history of documented coronary artery disease. Patient presented to the ER yesterday with acute onset of retrosternal chest pain scale of 8/10. Pain started about 20 minutes prior to arrival to the ER. Upon arrival the patient was noted to be pale and diaphoretic. Pain actually started with the patient was working in the [employer], and he had a brief episode of almost near syncope. He was also complaining of shortness of breath. Patient was found to have acute myocardial infarction, underwent cardiac catheterization and he was noted to have subtotally occluded proximal LAD. He underwent angioplasty and stenting. Patient actually had successful stenting of the proximal LAD and successful placement of M [place] catheter for hemodynamic support because during his cardiac catheterization, patient had episodes of ventricular fibrillation and tachycardia requiring CPR and multiple cardioversions. Patient was intubated by anesthesia while in the catheterization lab. Patient was found to have also chronically occluded mid RCA and elevated left ventricular end- diastolic pressure patient was transferred to the ICU on mechanical ventilation, and I was asked to see him on consultation. Patient is now on assist control r ate of 20, volume 450 FiO2 40% and PEEP of 5. ABG showed a pO2 of 197 pCO2 45 pH of 7.34 and this was on 70% FiO2. Patient is on propofol at 40 mcg/kg/m he was on 1 mg of Versed which I have discontinued his also on Nimbex at 2 mcg/kg/m norepinephrine at 0.04 mcg/kg/m amiodarone 0.5 mg/m. Patient was on bicarb drip at 50 mL per hour and I cut it down to 25 mL per hour. Patient was also noted t o have acute hyperkalemia and acute kidney injury that seems to be progressively getting worse as I recommended nephrology consultation. Patient is noted to have coffee ground material in the nasogastric tube and he had bloody urine. Heparin was briefly placed on hold by cardiology already. And I am [place] device is being addressed by cardiology today. WBC count is 17.5 hemoglobin is 13.8 PTT is 46.3. Fibrinogen 357, potassium 5.9 bicarb is up to 28 BUN is 30 creatinine 2.19 LDH is 2620 calcium is 7.0 chest x-ray this morning showed mild cardiomegaly and central venous congestion consistent with mild CHF. Echocardiogram on this admission showed ejection fraction of 10% and there is also evidence of mild mitral regurgitation 20, tidal volume 450, FiO2 40%, and PEEP of 5 patient was reevaluated today on 08/13/2022, patient remains in the ICU, intubated and mechanically ventilated. Patient is on assist control rate of 20 tidal volume 450 FiO2 45% and PEEP of 5 ABG showed a pO2 of 108 pCO2 35 pH of 7.47 hence his rate was cut down to 18 and his FiO2 cut down to 40%. the impella was removed by cardiology yesterday, patient is still requiring norepinephrine at 0.12 mcg/kg/m for blood pressure support. Remains on propofol at 50 mcg/kg/m. Patient has very poor minimal urine output and history of functioning is getting much worse. Hence I'm recommending a trial of Lasix 80 mg IV push 1. In the meantime patient will need to be seen by nephrology for his acute kidney injury secondary to hypotension/secondary to acute tubular necrosis. His IV fluids remains at 0.9 /75 mL per hour chest x-ray showed significant improvement in his congestive heart failure. WBC count is 22.9 hemoglobin 13.5. Platelets are 135. Basic metabolic profile and electrolytes are normal however his BUN is up to 54 creatinine is up to 4.35. His initial creatinine on admission was 1.08. Clearly this is consistent with acute kidney injury/acute tubular necrosis. Still concerned about mentation, hence will give the patient a sedation holiday/interruption and assess mental status, if determ ined to have possible anoxic brain injury will likely order a CT of the brain and initiate a neurological consultation Progress note dated 08/14/2022. This is a 57-year-old male who was admitted to the hospital on August 11. He came with chest pain, shortness of breath, and syncope. He is found to have an ST segment elevation myocardial infarction. He went to the catheterization laboratory on August 11, he developed ventricular fibrillation and ventricular tachycardia. He was defibrillated no less than 10 times. He was intubated at that time, and had 2 stents placed to his LAD, and had an Impella device placed. That device was removed the on August 12. He remains on mechanical ventilator, wi th possible anoxic brain injury. He is on by Mrs. control, rate 18, tidal volume 450, FiO2 60%, and PEEP of 5. Blood gases show pO2 of 99, pCO2 38, and pH is 7.35. That was on 70% FiO2. The patient's on saline at 75 mL an hour, propofol at 65 mcg/kg/m, norepinephrine at 21 mcg/m, vasopressin at 0.03 units per minute, fentanyl at 0.5 mcg/kg/h, and tube feedings with Nepro at 10 mL an hour. White count 22.7, hemoglobin 12, hematocrit 35.6, platelet count 107,000. Sodium 136, potassium 4.7, chlorides 104, CO2 20, anion gap 12, BUN 64, creatinine 7.25. AST is 621 ALT is 344. Microbiology sampling has been negative thus far. Chest x-ray shows some mild pulmonary venous congestion. Left subclavian triple-lumen catheter is in good position. There was no pneumothorax. Progress note dated 08/15/2022. 57-year-old male was admitted to the hospital on August 11. He came in with chest pain, shortness of breath, and syncope. He was found to have an ST segment elevation myocardial infarction. He went to the catheterization laboratory on August 11, developed ventricular fibrillation and ventricular tachycardia. He was defibrillated multiple times, maybe 10 or so. He was also intubated at the same time, and had 2 stents placed to his LAD, and, an Impella device placed. That device was removed on August 12. The patient remains on mechanical ventilator. His vent settings include assist control, rate 22, tidal volume 450, FiO2 50%, and PEEP of 5. Blood gases show pO2 of 98, CO2 34, pH 7.41. White count 16.6, hemoglobin 10.7, hematocrit 32, and platelet count 111,000. PTT is 62. Sodium 137, potassium 4, chlorides 101, CO2 21, anion gap 15, BUN 52, creatinine 6.68. Chest x-ray is consistent with interstitial edema. Progress note dated 08/16/2022. 57-year-old male was admitted to the hospital on August 11, chest pain, shortness breath, and syncope. The patient was found to have an ST segment elevation myocardial infarction. He went to the catheterization laboratory on August 11, developed ventricular fibrillation ventricular tachycardia, defibrillated multiple times, and was intubated at the same time, and had 2 stents placed in his LAD. In addition, for a day, he had a Impella device, that was removed the following day. Currently, he remains on the mechanical ventilator. His settings include assist control, rate 22, tidal volume 450, FiO2 50%, PEEP of 5. Blood gases show pO2 of 81, pCO2 33, and a pH is 7.42. The patient's on propofol at 30 mcg/kg/m, 0.9 at 75 mL an hour, heparin via weightbase protocol, and norepinephrine, at 3 mcg/m. Tube feedings on hold for possible cardiac test today. White count 15.3, hemoglobin 10, hematocrit 30.2, and platelet count 124,000. Sodium is 133, potassium 4, chlorides 99, CO2 21, anion gap 13, BUN 55, and creatinine 5.29. Calcium is 6.8. Microbiologic studies are negative. Chest x-rays essentially unchanged. Progress note dated 08/17/2022. This is a 57-year-old male who was admitted to the hospital August 11, with chest pain, shortness and syncope. The patient was diagnosed as having a STEMI, and went to the catheterization laboratory on August 11, where he developed ventricular fibrillation and tachycardia, and was defibrillated/cardioverted, multiple times. The patient was intubated at that time, he remains on the mechanical ventilator. He had 2 stents placed in his LAD. Currently, he's on the volume assist control, rate 22, tidal volume 450, FiO2 60%, PEEP of 5. Blood gases show pO2 157, pCO2 44, and a pH of 7.26. This was on 80% FiO2. The patient had hemodialysis yesterday, 2.1 L was removed. The patient remains on norepinephrine at 22 mcg/m, vasopressin at 0.03 units per minute, propofol at 50 mcg/kg/m, fentanyl 1 mcg/kg/h, heparin, the weight based protocol, and vital HD, at goal, which is 26 mL an hour. Patient's also getting saline at 50 mL an hour, which will be discontinued. White count 17.2, hemoglobin 10.7, hematocrit 32.4, with a normal platelet count. PTT is 52.8. Sodium 133, potassium 5.6, chlorides 96, CO2 18, anion gap 19, BUN 56, and creatinine 4.77. Blood cultures have been negative. Chest x-ray shows small bilateral effusions with some atelectasis and/or consolidation. Progress note dated 08/18/2022. 57-year-old male again seen today in room 252. He was admitted to the hospital on August 11, with chest pain, shortness of breath, syncope, and ST segment elevation myocardial infarction. He went to the catheterization laboratory and had 2 stents placed in the LAD. Prior to that, he developed ventricular fibrillation/tachycardia, and was defibrillated last cardioverted, about 10 times. He remains on the ventilator. He has not made any progress towards weaning and extubation. His mental status is very poor, the patient may have sustained anoxic brain injury, and/or metabolic encephalopathy. He is on volume assist control, rate 22, tidal volume 450, FiO2 50% PEEP of 5. Blood gases show pO2 of 81, pCO2 46, and a pH is 7.31. The blood gases are consistent with a mild respiratory acidosis. Remains on norepinephrine at 14 mcg/m, vasopressin at 0.03 units per minute, propofol at 50 mcg/kg/m, fentanyl 1 mcg/kg/h, heparin via weightbase protocol, saline at KVO, and vital HP at 26 mL an hour, which is goal. Yesterday, on August 17, he had hemodialysis, 3 L was removed. Sodium 132, potassium 5.1, chlorides 94, CO2 23, anion gap 15, BUN 61, and creatinine 4.49. Blood cultures are negative. Chest x-ray continues to show a pattern of CHF. Objective - Vital Signs Vital signs: Vital Signs Temp 98.1 F 08/18/22 08:00 Pulse 69 08/18/22 10:00 Resp 22 08/18/22 10:00 BP 128/71 08/17/22 13:55 Pulse Ox 92 L 08/18/22 10:00 FiO2 50 08/18/22 08:14 Intake & Output 08/17/22 08/18/22 08/18/22 18:59 06:59 18:59 Intake Total 2411.383 1392.433 23 Output Total 3500 0 0 Balance -9161.092 0978.433 23 Weight 99.1 kg Intake: IV 436 296 23 Piperacillin-Tazobactam 3 100 100 .375 gm In Sodium Chloride 0.9% 100 ml @ 25 mls/hr IVPB Q12H [facility] Rx# :[id number] Pressure bag 36 36 3 Sodium Chloride 0.9% 1, 300 160 20 000 ml @ 75 mls/hr IV . [id number] [facility] Rx#:[id number] Intake, IV Titration 6717.158 5504.433 Amount Heparin Sod,Pork in 0.45% 225.929 250 NaCl 25,000 unit In 0.45 % NaCl 1 250ml.bag @ 10. 57 UNITS/KG/HR 9.999 mls/ hr IV .Q24H [facility] Rx#: [id number] Norepinephrine 8 mg In 463.999 258 Sodium Chloride 0.9% 250 ml @ 0.03 MCG/KG/MIN 5. 317 mls/hr IV .Q24H [facility] Rx#:[id number] Sodium Chloride 0.9% 80 96.059 89.776 ml @ 1 MCG/KG/HR 9.92 mls /hr IV .Q10H5M [facility] with fentaNYL (PF) 1,000 mcg Rx#:[id number] Vasopressin 60 unit In 133.416 Sodium Chloride 0.9% 150 ml @ 0.03 UNITS/MIN 4.59 mls/hr IV .Q24H [facility] Rx#: [id number] propofoL 1,000 mg In 287.396 339.241 Empty Bag 1 bag @ 15 MCG/ KG/MIN 7.348 mls/hr IV . [id number] [facility] Rx#:[id number] Tube Feeding 312 26 Hemodialysis 500 Other 90 Output: Urine 0 0 0 Hemodialysis 3500 Other: Voiding Method Indwelling Catheter Indwelling Catheter ABP, PAP, CO, CI - Last Documented Arterial Blood Pressure 121/66 - Exam No acute distress, sedated, with an orally placed endotracheal tube and NG tube. HEENT examination is grossly unremarkable. Neck supple. Full range of motion. No adenopathy thyromegaly or neck vein distention. Left subclavian triple-lumen catheter is noted. Cardiovascular examination reveals regular rhythm rate. S1-S2 normal. No S3 or S4. No discernible murmur noted. Heart rate 69 bpm. Heart sounds are distant. Lungs reveal scattered mild rhonchi. Breath sounds equal. No wheezes. Saturations are 92%. Abdomen soft, without bowel sounds. No masses or tenderness. Extremities are intact. No cyanosis clubbing or edema. Skin is without rash or lesion. Neurologic examination cannot be adequately assessed at this time. - Labs CBC & Chem 7: 08/17/22 05:00 08/18/22 07:35 Labs: Abnormal Lab Results - Last 24 Hours (Table) 08/17/22 08/17/22 08/17/22 Range/Units 11:55 17:30 23:26 APTT (22.0-30.0) sec ABG pH (7.35-7.45) ABG pCO2 (35-45) mmHg ABG pO2 (83-108) mmHg Sodium (137-145) mmol/L Chloride (98-107) mmol/L BUN (9-20) mg/dL Creatinine (0.66-1.25) mg/dL Glucose (74-99) mg/dL POC Glucose (mg/dL) 115 H 121 H 134 H (70-110) mg/dL Calcium (8.4-10.2) mg/dL 08/18/22 08/18/22 08/18/22 Range/Units 04:55 05:38 06:09 APTT 58.5 H (22.0-30.0) sec ABG pH 7.31 L (7.35-7.45) ABG pCO2 46 H (35-45) mmHg ABG pO2 81 L (83-108) mmHg Sodium (137-145) mmol/L Chloride (98-107) mmol/L BUN (9-20) mg/dL Creatinine (0.66-1.25) mg/dL Glucose (74-99) mg/dL POC Glucose (mg/dL) 147 H (70-110) mg/dL Calcium (8.4-10.2) mg/dL 08/18/22 Range/Units 07:35 APTT (22.0-30.0) sec ABG pH (7.35-7.45) ABG pCO2 (35-45) mmHg ABG pO2 (83-108) mmHg Sodium 132 L (137-145) mmol/L Chloride 94 L (98-107) mmol/L BUN 61 H (9-20) mg/dL Creatinine 4.49 H (0.66-1.25) mg/dL Glucose 157 H (74-99) mg/dL POC Glucose (mg/dL) (70-110) mg/dL Calcium 7.6 L (8.4-10.2) mg/dL Microbiology - Last 24 Hours (Table) 08/13/22 14:18 Blood Culture - Preliminary Blood 08/13/22 14:14 Blood Culture - Preliminary Blood Assessment and Plan Assessment: Acute hypoxemic respiratory failure, secondary to an anterior wall ST segment elevation myocardial infarction, status post stenting of the LAD 2, and placement of a Impella device. Status post intubation mechanical ventilation for respiratory failure, 08/11/2022. Cardiogenic shock. Acute kidney injury secondary to ATN, currently receiving intermittent hemodialysis. Ventricular fibrillation arrest, status post multiple defibrillations and amiodarone. Acute metabolic acidosis. Severe systolic dysfunction, with an ejection fraction of 12%. Probable anoxic brain injury. Acute hyperkalemia secondary to acute kidney injury. Plan: Plan dated 08/14/2022. The patient is seen today, in room 252. Patient is being followed by neurology. Labs, x-rays, medications are reviewed. The patient's overall prognosis remains very tenuous. The patient continues to be a full code. A left subclavian triple lumen catheter was placed today. We will continue to follow make recommendations along the way. Prognosis is guarded. Plan dated 08/15/2022. The patient is seen today again in room 252. The patient will receive hemodialysis today. Tube feedings are hold, but will be resumed, with vital high protein at 20 mL an hour. The fentanyl drip has been discontinued. We will attempted daily interruption of sedation today. The patient remains on propofol at 30 mcg/kg/m, norepinephrine at 14 mcg/m, heparin via weightbase protocol, vasopressin at 0.03 units per minute, and saline at 75 mL an hour. The patient may not be ready for a spontaneous breathing trial. We will continue to follow. Labs, x-rays, and medications are all reviewed. Prognosis is certainly guarded. Plan dated 08/16/2022. The patient is seen again today in room 253. The patient underwent hemodialysis yesterday. 2.5 L was removed. The chest x-ray looks about the same. Oxygenation is reasonable. The patient remains on propofol, and IV heparin, and a small amount of norepinephrine at 3 mcg/m. The patient had daily interruption of sedation today. Unfortunately, the patient's mental status is very poor, the patient has guppy breathing, and does not respond. Labs, x-rays, medications are all reviewed. The patient's overall prognosis remains very poor. We will continue to follow. Plan dated 08/17/2022. The patient is again seen today in room 250. The patient remains on norepinephrine, and vasopressin, and propofol. Any attempts to lessen his sedation, causes respiratory distress. The patient is also on fentanyl, at 1 mcg/kg/h. Arterial blood gases show a mild to moderate metabolic acidosis. The patient remains on tube feedings, at goal. Labs, x-rays, and medications are all reviewed. The patient's overall prognosis remains very poor. Apparently the family would like to be with me tomorrow. We will continue to follow make recommendations along the way. If they want to continue life support, and tracheostomy and PEG tube should be done as soon as possible. Plan dated 08/18/2022. The patient is seen and evaluated again, in room 252. I had a long discussion with the family. They are agreeable to make the patient comfort care. They realize, that his chances of recovering from this illness are negligible. The patient remains on multiple drips including norepinephrine, vasopressin, propofol, fentanyl, and IV heparin. When the patient is given a daily interruption of sedation, he is unresponsive. He's been followed by neurology suggests either anoxic brain injury, and/or metabolic encephalopathy. He's been having ongoing dialysis. Labs, x-rays, medications are reviewed. We will get the family a grieving tray. I asked about whether or not the patient was mandaen and needed to see a sewer hand. We will attempt to find somebody to come see him. Once that is done, the patient will be given comfort care orders. Time with Patient: Greater than 30
[2022-08-18 13:03] VITALS: BMI 33.2
[2022-08-18 21:50] VITALS: BP 57/39; PULSE 100; RESP 13
--- NOTE | 2022-08-19 00:54 | P.PN ---
Subjective Progress Note Date: 08/18/[address] Wallace Patient was admitted to the hospital on August 11 with complaints of chest pain and shortness of breath. He was noted to be pale and diaphoretic. He was found to have acute SD and underwent cardiac catheterization and noted to have subtotally occluded proximal LAD. Patient was status post angioplasty and stenting. To the proximal LAD and placement of Impella catheter for hemodynamic support. Patient had episodes of ventricular fibrillation and tachycardia during the procedure and requiring multiple cardioversions and CPR. Patient was intubated and eventually transferred to MICU. He was also noted to have acute kidney injury. 2D echocardiogram showed ejection fraction 10% and mild MR. 08/18/2022 Patient is in the MICU. Remains intubated and was seen by neurology. Patient was suspected to have anoxic brain injury and metabolic encephalopathy. Patient has not made any progress since admission. Mental status did not improve at all. Requiring pressor support with Levophed and vasopressin. Patient is also on propofol. Laboratory showed sodium 132 potassium 5.1 chloride 94 bicarb is 23 BUN 61 and creatinine 4.41 and calcium 7.6. Patient is also getting hem odialysis. Due to worsening clinical status and has not made any progress and neurology suggesting anoxic brain injury. Family is agreeable for comfort care at this time. Patient will be terminally weaned off from ventilator. Current medications reviewed. Objective - Vital Signs Vital signs: Vital Signs Temp 98.1 F 08/18/22 08:00 Pulse 77 08/18/22 11:00 Resp 11 L 08/18/22 11:00 BP 128/71 08/17/22 13:55 Pulse Ox 83 L 08/18/22 11:00 FiO2 50 08/18/22 08:14 Intake & Output 08/17/22 08/18/22 08/18/22 18:59 06:59 18:59 Intake Total 2411.383 1392.433 24.853 Output Total 3500 0 0 Balance -9515.391 6750.433 24.853 Weight 99.1 kg Intake: IV 436 296 23 Piperacillin-Tazobactam 3 100 100 .375 gm In Sodium Chloride 0.9% 100 ml @ 25 mls/hr IVPB Q12H [facility] Rx# :[id number] Pressure bag 36 36 3 Sodium Chloride 0.9% 1, 300 160 20 000 ml @ 75 mls/hr IV . [id number] [facility] Rx#:[id number] Intake, IV Titration 1800.997 6281.433 1.853 Amount Heparin Sod,Pork in 0.45% 225.929 250 NaCl 25,000 unit In 0.45 % NaCl 1 250ml.bag @ 10. 57 UNITS/KG/HR 9.999 mls/ hr IV .Q24H [facility] Rx#: [id number] Morphine Sulfate (100 mg/ 1.853 2 ml) 100 mg In Sodium Chloride 0.9% 100 ml @ 1 MG/HR 1.02 mls/hr IV . Q24H [facility] Rx#:[id number] Norepinephrine 8 mg In 463.999 258 Sodium Chloride 0.9% 250 ml @ 0.03 MCG/KG/MIN 5. 317 mls/hr IV .Q24H [facility] Rx#:[id number] Sodium Chloride 0.9% 80 96.059 89.776 ml @ 1 MCG/KG/HR 9.92 mls /hr IV .Q10H5M [facility] with fentaNYL (PF) 1,000 mcg Rx#:[id number] Vasopressin 60 unit In 133.416 Sodium Chloride 0.9% 150 ml @ 0.03 UNITS/MIN 4.59 mls/hr IV .Q24H [facility] Rx#: [id number] propofoL 1,000 mg In 287.396 339.241 Empty Bag 1 bag @ 15 MCG/ KG/MIN 7.348 mls/hr IV . [id number] [facility] Rx#:[id number] Tube Feeding 312 26 Hemodialysis 500 Other 90 Output: Urine 0 0 0 Hemodialysis 3500 Other: Voiding Method Indwelling Catheter Indwelling Catheter ABP, PAP, CO, CI - Last Documented Arterial Blood Pressure 106/55 - Exam PHYSICAL EXAMINATION: Patient is on mechanical ventilator. Sedated. NG tube in place. HEENT: Normocephalic. Neck is supple. Pupils reactive. Nostrils clear. Oral cavity is moist. Neck reveals no JVD, carotid bruits, or thyromegaly. CHEST EXAMINATION: Trachea is central. Symmetrical expansion. On ventilator. Scattered rhonchi. No wheezing.. CARDIAC: Normal S1, S2 with no gallops. No murmurs ABDOMEN: Soft. Bowel sounds present. Nontender. No organomegaly. No abdominal bruits. Extremities: reveal no edema. No clubbing or cyanosis Neurologically awake, patient is sedated. No gross deficits. Skin: No rash or skin lesions. Psychiatric: Could not be assessed. Musculoskeletal: No joint swelling or deformity - Labs CBC & Chem 7: 08/17/22 05:00 08/18/22 07:35 Labs: Abnormal Lab Results - Last 24 Hours (Table) 08/17/22 08/17/22 08/17/22 Range/Units 11:55 17:30 23:26 APTT (22.0-30.0) sec ABG pH (7.35-7.45) ABG pCO2 (35-45) mmHg ABG pO2 (83-108) mmHg Sodium (137-145) mmol/L Chloride (98-107) mmol/L BUN (9-20) mg/dL Creatinine (0.66-1.25) mg/dL Glucose (74-99) mg/dL POC Glucose (mg/dL) 115 H 121 H 134 H (70-110) mg/dL Calcium (8.4-10.2) mg/dL 08/18/22 08/18/22 08/18/22 Range/Units 04:55 05:38 06:09 APTT 58.5 H (22.0-30.0) sec ABG pH 7.31 L (7.35-7.45) ABG pCO2 46 H (35-45) mmHg ABG pO2 81 L (83-108) mmHg Sodium (137-145) mmol/L Chloride (98-107) mmol/L BUN (9-20) mg/dL Creatinine (0.66-1.25) mg/dL Glucose (74-99) mg/dL POC Glucose (mg/dL) 147 H (70-110) mg/dL Calcium (8.4-10.2) mg/dL 08/18/22 Range/Units 07:35 APTT (22.0-30.0) sec ABG pH (7.35-7.45) ABG pCO2 (35-45) mmHg ABG pO2 (83-108) mmHg Sodium 132 L (137-145) mmol/L Chloride 94 L (98-107) mmol/L BUN 61 H (9-20) mg/dL Creatinine 4.49 H (0.66-1.25) mg/dL Glucose 157 H (74-99) mg/dL POC Glucose (mg/dL) (70-110) mg/dL Calcium 7.6 L (8.4-10.2) mg/dL Microbiology - Last 24 Hours (Table) 08/13/22 14:18 Blood Culture - Preliminary Blood 08/13/22 14:14 Blood Culture - Preliminary Blood Assessment and Plan Assessment: Acute hypoxemic respiratory failure secondary to ST elevated SD s/p stent placement to the LAD x2 and placement of Impella. Patient remains on mechanical ventilator. Cardiogenic shock Acute CHF systolic dysfunction ejection fraction 10% Possible anoxic brain injury Ventricular fibrillation and tachycardia requiring multiple defibrillations and was on amiodarone drip. Acute kidney injury secondary ATN requiring hemodialysis during this admission DVT prophylaxis Plan: Patient is intubated mechanical ventilator. Patient did have ventricular fibrillation/tachycardia while in the [employer] requiring multiple d efibrillation. Still requiring pressor support with vasopressin and Levophed. Anoxic brain injury and metabolic encephalopathy is being considered and neurology is on board. Patient is also on hemodialysis. Due to poor prognosis, discussed with family. Family is agreeable for comfort care at this time. Time with Patient: Greater than 30
--- NOTE | 2022-08-23 09:12 | CDI ---
Documentation Clarification Form Date: 08/23/2022 09:02:00 AM From: Vandana Montgomery RN, CCDS Email: [email or web address] Admit Date: 08/11/2022 07:28:00 PM Patient Name: Nathaniel Rome Visit Number: [id number] Discharge Date: 08/19/2022 04:21:00 AM ATTENTION: The Clinical Documentation Specialists (CDI) and [facility] Coding Staff appreciate your assistance in clarifying documentation. Please respond to the clarification below the line at the bottom and electronically sign. The CDI & [facility] Coding staff will review the response and follow-up if needed. Please note: Queries are made part of the Legal Health Record. If you have any questions, please contact the author of this message via ITS. Dr. Lisa Taylor Ventricular fibrillation and ventricular tachycardia is documented in the 08/11 procedure note/progress notes and patient had a cardiac catheterization with PTCA and placement of Impella catheter. Additional clarification is requested regarding the relationship, if any, that exists between the diagnosis and the procedure. Patients Admitting Diagnosis: Myocardial infarction Post-Operative Diagnosis: Myocardial infarction, sub totally occluded proximal LAD Procedure performed: Successful stenting of the proximal LAD with reduction of stenosis from 99% with large amount of thrombus to less than 5%. Successful placement of Impella catheter for hemodynamic support. History/Risk Factors: HTN. Presented to ED with CP, diaphoretic and hypotensive. The patient seemed to be in cardiogenic shock related to the anterior wall myocardial infarction. Clinical Indicators: 08/11 Procedure: "a 4.0 x 23 mm Xience yael point stent was deployed. It was dilated at 16. Following that the patient had recurrent episode of ventricular tachycardia and ventricular fibrillation requiring CPR and multiple cardioversion. The patient was intubated electively by anesthesia." BP during cath: 60/40. 08/11 Procedure log: patient in V fib, shocked at 200j multiple times, epi given, CPR started. Code blue called. Multiple shocks given from time of code blue being called. Patient intubated. Impella placement verified by fluoroscopy. Treatment: shocked, CPR, Impella placement, cardioversion, Amiodarone drip 08/11- 08/13. Levophed titrated 08/11-08/18. What relationship, if any, exists between the diagnosis of Ventricular Fibrillation and Ventricular Tachycardia and the procedure: [ ] Ventricular fibrillation/Ventricular tachycardia is a complication of surgical procedure [ ] Ventricular fibrillation/Ventricular tachycardia is an expected outcome of the surgical procedure [ xx ] Ventricular fibrillation/Ventricular tachycardia is related to patients co-morbid conditions & not a complication of the procedure [ ] Other please specify ____ [ ] Unable to determine MTDD
--- NOTE | 2022-08-24 22:16 | DS ---
DISCHARGE SUMMARY DATE OF : August 19, 2022. CHIEF COMPLAINT: Chest pain. HISTORY OF PRESENT ILLNESS AND PHYSICAL EXAM: Details of this man's history and physical can be found in the initial workup. LABORATORY STUDIES: While he was in the hospital, he had laboratory studies, details of which can be found in the laboratory section of his chart. COURSE IN THE HOSPITAL: After admission, he was placed on bedrest, started intravenous fluids, and taken straight to the medical laboratory manager. He was found to have an occluded LAD. During the procedure, his course became rachell. He had a cardiac arrest and had to be resuscitated. He was then moved to the intensive care unit. There, he remained until his . He received intensive care including a balloon pump to stabilize the blood pressure along with vasopressors. He did not respond neurologically and never made any urine. He went into acute tubular necrosis and was seen by Nephrology and started on dialysis. His blood pressure remained very unstable and he never made urine. He on the 19 August. FINAL DIAGNOSES: 1. Acute ST elevation myocardial infarction. 2. Coronary artery disease. 3. Acute kidney injury. 4. Cardiogenic shock. OPERATIONS: Cardiac cath with stenting of the LAD. CONSULTATIONS: Cardiology, Pulmonology/Intensive Medicine, and Nephrology. MMODL / IJN: [id number] /
--- NOTE | 2022-08-25 10:44 | CDI ---
Documentation Clarification Form Date: 08/25/2022 10:20:42 AM From: Vandana Montgomery RN, CCDS Email: [email or web address] Admit Date: 08/11/2022 07:28:00 PM Patient Name: Nathaniel Rome Visit Number: [id number] Discharge Date: 08/19/2022 04:21:00 AM ATTENTION: The Clinical Documentation Specialists (CDI) and [facility] Coding Staff appreciate your assistance in clarifying documentation. Please respond to the clarification below the line at the bottom and electronically sign. The CDI & [facility] Coding staff will review the response and follow-up if needed. Please note: Queries are made part of the Legal Health Record. If you have any questions, please contact the author of this message via ITS. Dr. Doug Wallace Unspecified anemia is documented in the 08/16 progress note. Additional specificity regarding the type and acuity of anemia is requested. History/Risk Factors: Acute myocardial infarction with cardiogenic shock and acute tubular necrosis. S/P insertion of PTCA on 08/11 followed by episode of V- tach and V-fib requiring CPR, multiple cardioversions and intubation. The patient continued to be hypotensive, so an Impella was introduced under fluoroscopy and positioned with good hemodynamic numbers. The Impella was removed on 08/12. Patient was on a Heparin drip from 08/11-08/18 Clinical indicators: 08/12 Pulmonary: "Patient is noted to have coffee ground material in the nasogastric tube and he had bloody urine. Heparin was briefly placed on hold by Cardiology already." Gastric OB positive Stool OB negative UA showing large amount of blood Hemoglobin: 08/11 16.6; 08/12 14.2; 08/13 13.5; 08/14 12.0; 08/15 10.7; 08/16 10.0 Hematocrit: 08/11 48.3; 08/12 39.5; 08/13 39.6; 08/14 35.6; 08/15 32.0; 08/16 30.2; 08/17 32.4 Treatment: Daily lab monitoring. Hold Heparin Please clarify the type and acuity of anemia: [ ] Acute blood loss anemia [ ] Drug induced anemia [ ] Unable to determine [ ] Other, please specify MTDD
--- NOTE | 2022-09-14 08:13 | EEG ---
ELECTROENCEPHALOGRAM REPORT CLINICAL HISTORY: This is a 57-year-old gentleman with altered mental post cardiac arrest. The 2.5-hour video EEG is obtained to evaluate for seizure epileptiform activity. RELEVANT MEDICATION: IV propofol. EEG TYPE: A 2.5-hour video EEG is performed using the 10/20 electrode placement system. At 8:34 a.m the data started recording, and ending is 11:09 a.m. on 08/15/2022. DESCRIPTION: The patient is intubated on a ventilator. The background consists of moderate to high voltage of 2.5 to 3.5 hertz delta activity that are semi-nonrhythmic to nonrhythmic. At times, the background consists of theta activity. There is no focal slowing. Interictal and ictal is none. ACTIVATION PROCEDURE: Photic stimulation did not evoke a posterior driving response. There is no abnormality during the photic stimulation. Hyperventilation is not performed. CLINICAL INTERPRETATION: This is an abnormal 2.5-hour video EEG. The background slowing is suggestive of severe encephalopathy. Otherwise, there is no focal slowing, epileptiform discharge, or seizure on the EEG. Clinical correlation is recommended. MMLULL / IJN: [id number] / MTDD
--- NOTE | 2022-09-21 16:48 | MISC ---
MISCELLANOUS REPORT Unable to determine type of anemia. MMODL / IJN: [id number] /
== END 2022-08-19 04:21 | disposition expired | DRG 169 ==
LOC: EC 18:44 → 2SICU 19:28
PROVIDERS: ADMIT Family Medicine; ATTEND Family Medicine
PROC: 3E033XZ Introduction of Vasopressor into Peripheral Vein, Percutaneous Approach (ICD-10-PCS; 2022-08-11)
PROC: 027135Z Dilation of Coronary Artery, Two Arteries with Two Drug-eluting Intraluminal Devices, Percutaneous Approach (ICD-10-PCS; 2022-08-11)
PROC: 5A12012 Performance of Cardiac Output, Single, Manual (ICD-10-PCS; 2022-08-11)
PROC: 5A2204Z Restoration of Cardiac Rhythm, Single (ICD-10-PCS; 2022-08-11)
PROC: 02HA3RJ Insertion of Short-term External Heart Assist System into Heart, Intraoperative, Percutaneous Approach (ICD-10-PCS; 2022-08-11)
PROC: 0D9670Z Drainage of Stomach with Drainage Device, Via Natural or Artificial Opening (ICD-10-PCS; 2022-08-11)
PROC: 5A0221D Assistance with Cardiac Output using Impeller Pump, Continuous (ICD-10-PCS; principal; 2022-08-11 19:17)
PROC: 4A023N7 Measurement of Cardiac Sampling and Pressure, Left Heart, Percutaneous Approach (ICD-10-PCS; 2022-08-11 19:17)
PROC: 5A1955Z Respiratory Ventilation, Greater than 96 Consecutive Hours (ICD-10-PCS; 2022-08-11 19:17)
PROC: B2111ZZ Fluoroscopy of Multiple Coronary Arteries using Low Osmolar Contrast (ICD-10-PCS; 2022-08-11 19:17)
PROC: 02PA3RZ Removal of Short-term External Heart Assist System from Heart, Percutaneous Approach (ICD-10-PCS; 2022-08-12)
PROC: 02HV33Z Insertion of Infusion Device into Superior Vena Cava, Percutaneous Approach (ICD-10-PCS; 2022-08-14)
PROC: 3E043XZ Introduction of Vasopressor into Central Vein, Percutaneous Approach (ICD-10-PCS; 2022-08-14)
PROC: 02HV33Z Insertion of Infusion Device into Superior Vena Cava, Percutaneous Approach (ICD-10-PCS; 2022-08-14)
PROC: 5A1D70Z Performance of Urinary Filtration, Intermittent, Less than 6 Hours Per Day (ICD-10-PCS; 2022-08-14)
PROC: 5A1D70Z Performance of Urinary Filtration, Intermittent, Less than 6 Hours Per Day (ICD-10-PCS; 2022-08-15)
DX: I21.02 ST elevation (STEMI) myocardial infarction involving left anterior descending coronary artery (principal); R57.0 Cardiogenic shock; N17.0 Acute kidney failure with tubular necrosis; I46.2 Cardiac arrest due to underlying cardiac condition; J96.01 Acute respiratory failure with hypoxia; G92.8 Other toxic encephalopathy; J18.9 Pneumonia, unspecified organism; I49.01 Ventricular fibrillation; I50.21 Acute systolic (congestive) heart failure; R34 Anuria and oliguria; G93.1 Anoxic brain damage, not elsewhere classified; Z99.11 Dependence on respirator [ventilator] status; E87.21 Acute metabolic acidosis; I47.20 Ventricular tachycardia, unspecified; E66.9 Obesity, unspecified; I70.221 Atherosclerosis of native arteries of extremities with rest pain, right leg; I11.0 Hypertensive heart disease with heart failure; F10.21 Alcohol dependence, in remission; I21.09 ST elevation (STEMI) myocardial infarction involving other coronary artery of anterior wall; Z51.5 Encounter for palliative care; Z68.33 Body mass index [BMI] 33.0-33.9, adult; Z66 Do not resuscitate; I25.119 Atherosclerotic heart disease of native coronary artery with unspecified angina pectoris; I34.0 Nonrheumatic mitral (valve) insufficiency; F32.A Depression, unspecified; Z91.128 Patient's intentional underdosing of medication regimen for other reason; D64.9 Anemia, unspecified; E78.5 Hyperlipidemia, unspecified; T46.4X6A Underdosing of angiotensin-converting-enzyme inhibitors, initial encounter; T46.6X6A Underdosing of antihyperlipidemic and antiarteriosclerotic drugs, initial encounter; F17.210 Nicotine dependence, cigarettes, uncomplicated; I45.10 Unspecified right bundle-branch block; H16.9 Unspecified keratitis; E87.5 Hyperkalemia; I25.5 Ischemic cardiomyopathy; R31.9 Hematuria, unspecified; Z96.642 Presence of left artificial hip joint; Z28.310 Unvaccinated for COVID-19; Z79.899 Other long term (current) drug therapy; Z79.891 Long term (current) use of opiate analgesic; Z82.49 Family history of ischemic heart disease and other diseases of the circulatory system
CPT/HCPCS: 33990; 36415; 70450; 71045; 76770; 80048; 80053; 81001; 82140; 82271; 82272; 82805; 83605; 83615; 83690; 83735; 83880; 84132; 84484; 85025; 85027; 85379; 85384; 85610; 85730; 86706; 87040; 87340; 90935; 92950; 93005; 93306; 93308; 93458; 93922; 94002; 94003; 94640; 95700; 95713; 95822; 96361; 96374; 96375; 99285